=== PATIENT | female | born 1975 | race Caucasian/White ===

== ENCOUNTER → 2019-12-25 12:41 | Outpatient (BNVA) | payer SELFPAY | PROVIDERS: Family Provider Nurse Practitioner; PCP Nurse Practitioner; Visit Provider Family Medicine | DX: R50.9 Fever, unspecified (principal); R52 Pain, unspecified; R51 Headache; A08.4 Viral intestinal infection, unspecified; R10.31 Right lower quadrant pain; H65.01 Acute serous otitis media, right ear | CPT/HCPCS: 87804 ==

== ENCOUNTER 2020-01-16 05:56 | Day surgery (SDC) | payer SELFPAY ==
[2020-01-15 12:18] VITALS: BMI 49.8
[2020-01-16 06:14] VITALS: BP 128/85; RESP 20; TEMP 35.9; O2SAT 99
[2020-01-16] MEDS: sodium chloride 0.9% 1,000 ML 30 ML (06:19)
--- NOTE | 2020-01-16 06:31 | W.PM.OPSFHP ---
Same Day Surgery H&P Indication for Procedure/HPI DATE OF PROCEDURE: January 16, 2020 CHIEF COMPLAINT/INDICATIONFOR SURGICAL PROCEDURE: Heartburn PREOP DIAGNOSIS: GERD PLANNED PROCEDRUE: Operation Date: 01/16/20 07:00 Proposed Procedures p EGD(Not Applicable) - Silverio Irene MD This is a pleasant 44 years old female patient morbidly obese with multiple medical comorbidities including GERD patient was presented to my office to discuss obesity management options and because of her GERD symptoms and potential planning for bariatric surgery down the road I did academic counselor the patient for diagnostic EGD. Informed consent per chart ROS All systems have been reviewed negative except as for the above and the associated medical comorbidities listed per problem list which includes an anxiety, depression and morbid obesity Medications/Allergies* Home Medications Medication Instructions Recorded Confirmed Type cetirizine 10 mg tablet 10 mg PO QDAY 12/11/19 01/15/20 History clonazepam 0.125 mg disintegrating 0.125 mg PO ONCE 12/11/19 01/15/20 History tablet estradiol 1 mg tablet 1 mg PO QDAY 12/11/19 01/15/20 History venlafaxine 75 mg capsule,extended 225 mg PO QAM cap 12/11/19 01/15/20 History release 24 hr Allergies/Adverse Reactions Allergy/AdvReac Type Severity Reaction Status Date / Time penicillin G Allergy Severe Unknown Verified 01/16/20 06:33 Pertinent History/Comorbid Conditions* Medical History (Updated 12/14/19 @ 09:52 by Silverio Irene MD) Anxiety Chronic pain GERD (gastroesophageal reflux disease) Obesity Surgical History (Updated 12/14/19 @ 09:52 by Silverio Irene MD) History of 3 sections 1993,1999,2002 History of dilation and curettage (~2012) History of foot surgery BILATERAL- PLANTAR FASCITIS RELEASE History of hysterectomy (~2018) History of laparoscopic cholecystectomy (~2014) History of tubal ligation (~2002) Family History (Updated 12/13/19 @ 13:17 by Cheyanne Baxter RN) Diabetes Father Mother Heart disease Father Hypertension Father Thyroid condition Mother Obesity Mother Grandmother Denies family history of Anesthesia complication Bleeding disorder Social History Smoking and tobacco status: current every day smoker cigarettes Packs smoked per day: 1 Years cigarettes smoked: 25 Quit status (tobacco): has tried quititng Second hand smoke exposure: Yes Alcohol intake: never Desire information about substance/drug rehabilitation?: No Adopted: No Caregiver/support person: Yes Lives independently: Yes Household members: significant other Housing: House Marital status: Life Partner Number of children: 3 Highest education level completed: High School Graduate service: No Current occupational status: employed Current occupation: [employer] Current occupational exposures/hazards: No Pets and animals: No History of recent travel: No Leisure activites: volunteer work Sexually active: Yes Current gender identity: Female Flakita/Zoroastrian: None Special flakita needs: No Agree to transfusion: No Financial difficulty paying for basics: Decline to Answer Pertinent Exam Findings alert, oriented x 3, clear to auscultation bilaterally and procedure specific exam findings (Abdominal examination morbidly obese nontender nondistended soft no guarding or rigidity) Recommendations Surgery/Procedure today (Diagnostic EGD) Coding Level of Care Code Acute [facility] for Camille Ibarra
--- NOTE | 2020-01-16 06:48 | P.ANESASSM_ITS ---
Pre-Anesthetic Assessment Pre-Anesthetic Assessment: Height/Weight: Height 1.55 m Weight 119.748 kg Temp Resp BP Pulse Ox 96.6 F L 20 H 128/85 99 01/16/20 06:14 01/16/20 06:14 01/16/20 06:14 01/16/20 06:14 Preop Diagnosis: GERD Proposed Procedure: Operation Date: 01/16/20 07:00 Proposed Procedures p EGD(Not Applicable) - Silverio Irene MD Was Beta Sal taken within 24 hours: N/A Last intake: Intake Last Liquid Date 01/15/20 Last Liquid Time 23:30 Last Intake: 23:30 Social: Social History: Tobacco and No alcohol Packs per day: 1 Pack years: 20 Exam: Pre-Anes Outpt Exam: alert, oriented x 3, clear to auscultation bilaterally and regular rate & rhythm Airway: Submandibular: WNL Cervical ROM: WNL MP: 1 Pulmonary: Pulmonary: None reported CV/HEM: CV/HEM: None reported : : None reported Hepatic: Hepatic: None reported GI: GI: GERD Metabolic: Metabolic: Morbid obesity Musc/skel: Musc/skel: OA/DJD Neuropsych: Neuropsych: Anxiety Anesthetic Plan: ASA status: 2 Anesthesia: Anesthesia Evaluation and MAC Risk of > 500 ml blood loss (7ml/kg in children): No PFSH Anesthesia PFSH: Social History (Updated 12/25/19 @ 12:37 by Angelica Davis LPN) Smoking and tobacco status: current every day smoker cigarettes Packs smoked per day: 1 Years cigarettes smoked: 25 Quit status (tobacco): has tried quititng Second hand smoke exposure: Yes Alcohol intake: never Desire information about substance/drug rehabilitation?: No Adopted: No Caregiver/support person: Yes Lives independently: Yes Household members: significant other Housing: House Marital status: Life Partner Number of children: 3 Highest education level completed: High School Graduate service: No Current occupational status: employed Current occupation: [employer] Current occupational exposures/hazards: No Pets and animals: No History of recent travel: No Leisure activites: volunteer work Sexually active: Yes Current gender identity: Female Flakita/Sabianism: None Special flakita needs: No Agree to transfusion: No Financial difficulty paying for basics: Decline to Answer Data Anesthesia Cardiac Studies: No Data to Display
[2020-01-16 07:15] VITALS: BP 107/69; PULSE 100; RESP 94; TEMP 36.1; O2SAT 99
--- NOTE | 2020-01-16 07:15 | ANE.PACU2 ---
 Inpatient post-anesthesia follow up: Airway intact: Yes Vital signs: Temperature 96.6 F Pulse Rate Respiratory Rate 20 Blood Pressure 128/85 Pulse Oximetry 99 Oxygen Delivery Me thod Room Air Oxygen Flow Rate Fraction of Inspir ed Oxygen Hydration adequate: Yes Nausea and vomiting: No Pain level: 1 Mental status: Baseline
[2020-01-16 07:30] VITALS: BP 92/71; PULSE 82; RESP 18; O2SAT 96
== END 2020-01-16 07:40 | disposition home or self-care (01) ==
PROVIDERS: Family Provider Nurse Practitioner; PCP Nurse Practitioner; Visit Provider Surgery
PROC: 0DJ08ZZ Inspection of Upper Intestinal Tract, Via Natural or Artificial Opening Endoscopic (ICD-10-PCS; CPT 43235; principal; 2020-01-16 07:00)
DX: K21.9 Gastro-esophageal reflux disease without esophagitis (principal); E66.01 Morbid (severe) obesity due to excess calories; Z68.42 Body mass index [BMI] 45.0-49.9, adult; F17.210 Nicotine dependence, cigarettes, uncomplicated; M19.90 Unspecified osteoarthritis, unspecified site; K29.70 Gastritis, unspecified, without bleeding
CPT/HCPCS: 12345; 43239; 87077; J2704; J7030

== ENCOUNTER 2020-02-07 20:00 | Outpatient (CLI) | payer SELFPAY | END 2020-02-07 20:01 | disposition home or self-care (01) | LOC: SLEEP 02-08 10:07 | PROVIDERS: Family Provider Nurse Practitioner; PCP Nurse Practitioner; Visit Provider Surgery | DX: G47.33 Obstructive sleep apnea (adult) (pediatric) (principal) | CPT/HCPCS: 95810 ==

== ENCOUNTER 2020-02-20 10:18 | Emergency (ER) | payer SELFPAY ==
[2020-02-20 10:24] VITALS: BP 167/104; PULSE 117; RESP 16; TEMP 36.9; O2SAT 96; BMI 51.0
--- NOTE | 2020-02-20 10:41 | XR_ITS ---
WS: [id number] PORTABLE CHEST HISTORY: cough COMPARISON: 04/24/2019 Perihilar pulmonary vascular congestion and interstitial thickening. Greatest on the RIGHT. No pleura l effusion or pneumothorax. Cardiac size: Normal. Mediastinum/Aorta: Normal mediastinum. No osseous abnormality seen. XR/XR chest 1V portable [id number] IMPRESSION: Pulmonary venous congestion, greatest on the RIGHT. A superimposed pneumonitis on the RIGHT should be considered.
--- NOTE | 2020-02-20 10:43 | ED_ITS ---
Documented by User: LARISA Ferris 02/23/20 17:28 HPI - URI/Sore Throat General: Chief Complaint: Upper Respiratory Infection Stated Complaint: MULTIPLE COMPLAINTS Time Seen by Provider: 02/20/20 10:24 History of Present Illness: HPI Narrative: Patient is a 45-year-old female who comes to the ED with upper respiratory infection. Patient says that symptoms started on Tuesday, February 16. She has had nasal congestion, headache, cough, body aches and ear pain. She has also had on or off again fever for the past couple days. She is also starting develop a mild sore throat. She denies any recent travel or any known contact with COVID-19 positive patients. Associated symptoms: Reports fever(s), headache(s) and nasal congestion; Deny abdominal pain, chills, chest pain, diarrhea, nausea or vomiting Review of Systems Const: Reports: fever; Denies: chills or fatigue Eyes: Denies: change in vision or eye discomfort ENMT: Reports: throat pain, nasal discharge and nasal congestion; Denies: painful swallowing Card: Denies: chest pain, palpitations, edema, swelling of feet/ankles, shortness of breath on exertion or shortness of breath when lying down Resp: Reports: non-productive cough; Denies: shortness of breath or productive cough GI: Denies: abdominal pain, nausea, vomiting, diarrhea, constipation or blood in stool : Denies: flank pain, painful urination or blood in urine Musc: Denies: neck pain, back pain or extremity swelling Skin/Breast: Denies: rash or new lesion Neuro: Reports: headache; Denies: numbness in extremities or weakness in extremities [facility] ED PFSH: Medical History Anxiety Bereavement Sudden loss of sister Chronic pain Chronic post-traumatic stress disorder Generalized anxiety disorder GERD (gastroesophageal reflux disease) Major depressive disorder, recurrent, moderate Nicotine dependence, cigarettes, uncomplicated Obesity Panic disorder without agoraphobia Surgical History History of 3 sections 1993,1999,2002 History of dilation and curettage (~2012) History of foot surgery BILATERAL- PLANTAR FASCITIS RELEASE History of hysterectomy (~2018) History of laparoscopic cholecystectomy (~2014) History of tubal ligation (~2002) Family History Father Hypertension Heart disease Diabetes Mother Thyroid condition Diabetes Obesity Grandmother Obesity Denies family history of Anesthesia complication Bleeding disorder Social History Smoking and tobacco status: current every day smoker cigarettes Packs smoked per day: 1 Years cigarettes smoked: 25 Quit status (tobacco): has tried quititng Second hand smoke exposure: Yes Alcohol intake: never Desire information about substance/drug rehabilitation?: No Adopted: No Caregiver/support person: Yes Lives independently: Yes Household members: significant other Housing: House Marital status: Life Partner Number of children: 3 Highest education level completed: High School Graduate service: No Current occupational status: employed Current occupation: [employer] independent living Current occupational exposures/hazards: No Pets and animals: No History of recent travel: No Leisure activites: volunteer work Sexually active: Yes Current gender identity: Female Flakita/Pentecostalism: None Special flakita needs: No Agree to transfusion: No Financial difficulty paying for basics: Decline to Answer Physical Exam Const: COMMON NORMALS: oriented x3 HENMT: COMMON NORMALS: normocephalic HEAD & SCALP: normocephalic TYMPANIC MEMBRANE: TM abnormal TM laterality: bilateral bulging, erythematous (mild erythema) and with fluid behind the TM; not perforated MOUTH: oral and palatal mucosa normal THROAT: uvula midline and posterior oropharynx abnormal cobblestoning Neck/C-Spine: COMMON NORMALS: supple GENERAL: Yes normal visual inspection Lymph: LYMPHATIC: no lymphadenopathy noted Resp: COMMON NORMALS: normal respiratory effort, no retractions, no use of accessory muscles and clear to auscultation bilaterally EFFORT & INSPECTION: Yes able to speak in complete sentences and No labored AUSCULTATION: clear to auscultation bilaterally Cardio: COMMON NORMALS: regular rate, regular rhythm, S1 normal heart sound, S2 normal heart sound, no gallops, no clicks, no murmurs and peripheral pulses 2+ throughout RATE: regular rate RHYTHM: regular rhythm HEART SOUNDS: S1 normal and S2 normal PERIPHERAL PULSES: pulses 2+ throughout GI: COMMON NORMALS: normal to inspection, nondistended, normoactive bowel sounds, soft to palpation, non-tender and no masses PALPATION: Yes soft : COMMON NORMALS: Yes no CVA tenderness BLADDER/KIDNEY EXAM: Yes no CVA tenderness Back/Pelvis: COMMON NORMALS: no CVA tenderness Extremity: COMMON NORMALS: normal to inspection Neuro: COMMON NORMALS: oriented x3 and moves all extremities Skin: COMMON NORMALS: no rashes or lesions noted GENERAL SKIN EXAM: no rashes or lesions noted and dry skin Course Vital Signs: Vital signs: Vital Signs Temperature 98.8 F 02/20/20 12:30 Pulse Rate 106 H 02/20/20 12:30 Respiratory Rate 21 H 02/20/20 12:30 Blood Pressure 128/102 02/20/20 12:30 Pulse Oximetry 96 02/20/20 12:30 MDM - URI/Sore Throat MDM Narrative: Medical decision making narrative: Patient is a 45-year-old female comes into the ED with congestion, cough sore throat and ear pain. Chest x-ray was positive for right lower lobe pneumonia. Patient was put on azithromycin and Cefpodoxime to treat pneumonia. Patient told to take full course of antibiotics. She will follow-up with her PCP in 5 to 7 days. Patient understood and agreed with plan. Lab Data: Attestation: I reviewed the patient's lab results. Labs: Lab Results 02/20/20 02/20/20 02/20/20 Range/Units 11:04 11:17 11:17 WBC 8.1 (4.0-10.0) 10^3/ uL RBC 4.23 (4.1-5.3) 10^6/u L Hgb 11.8 (11.5-15.3) g/dL Hct 37.4 (37.0-47.0) % MCV 88.4 (81-99) fL MCH 27.9 L (28.0-34.0) pg MCHC 31.6 (30.0-36.0) g/dL RDW 14.1 (12.1-15.1) % Plt Count 327 (130-400) 10^3/c mm MPV 9.2 (7.4-10.4) fL Neut % (Auto) 63.5 % Lymph % (Auto) 24.3 % [place] % (Auto) 9.1 % Eos % (Auto) 2.7 % Baso % (Auto) 0.2 % Neut # (Auto) 5.2 (1.8-7.7) 10^3/u L Lymph # (Auto) 2.0 (0.8-4.8) 10^3/u L [place] # (Auto) 0.7 (0.2-0.9) 10^3/u L Eos # (Auto) 0.2 (0.0-0.8) 10^3/u L Baso # (Auto) 0.0 (0.0-0.1) 10^3/u L Nucleated RBC % (a uto) 0 % Nucleated RBCs # 0.0 /100WBC Sodium 136 (136-145) mmol/L Potassium 4.2 (3.5-5.1) mmol/L Chloride 102 (98-107) mmol/L Carbon Dioxide 25 (22-29) mmol/L Anion Gap 13.2 (5-19) BUN 11 (6-20) mg/dL Creatinine 0.6 (0.5-0.9) mg/dL GFR Calculation 109.1 (90-130) mL/min Glucose 119 H (65-115) mg/dL Calculated Osmolal ity 279 L (285-295) mOsm/k g Calcium 9.8 (8.5-10.5) mg/dL Total Bilirubin 0.2 (0.15-1.2) mg/dL AST 17 (0-32) U/L ALT 19 (0-33) U/L Alkaline Phosphata se 82 (35-105) IU/L Total Protein 7.1 (6.6-8.7) g/dL Albumin 3.7 (3.5-5.2) g/dL Globulin 3.4 (1.3-4.6) g/dL HCG, Qual (Negative) Influenza Type A A g Negative (Negative) Influenza Type B A g Negative (Negative) 02/20/20 Range/Units 11:17 WBC (4.0-10.0) 10^3/ uL RBC (4.1-5.3) 10^6/u L Hgb (11.5-15.3) g/dL Hct (37.0-47.0) % MCV (81-99) fL MCH (28.0-34.0) pg MCHC (30.0-36.0) g/dL RDW (12.1-15.1) % Plt Count (130-400) 10^3/c mm MPV (7.4-10.4) fL Neut % (Auto) % Lymph % (Auto) % [place] % (Auto) % Eos % (Auto) % Baso % (Auto) % Neut # (Auto) (1.8-7.7) 10^3/u L Lymph # (Auto) (0.8-4.8) 10^3/u L [place] # (Auto) (0.2-0.9) 10^3/u L Eos # (Auto) (0.0-0.8) 10^3/u L Baso # (Auto) (0.0-0.1) 10^3/u L Nucleated RBC % (a uto) % Nucleated RBCs # /100WBC Sodium (136-145) mmol/L Potassium (3.5-5.1) mmol/L Chloride (98-107) mmol/L Carbon Dioxide (22-29) mmol/L Anion Gap (5-19) BUN (6-20) mg/dL Creatinine (0.5-0.9) mg/dL GFR Calculation (90-130) mL/min Glucose (65-115) mg/dL Calculated Osmolal ity (285-295) mOsm/k g Calcium (8.5-10.5) mg/dL Total Bilirubin (0.15-1.2) mg/dL AST (0-32) U/L ALT (0-33) U/L Alkaline Phosphata se (35-105) IU/L Total Protein (6.6-8.7) g/dL Albumin (3.5-5.2) g/dL Globulin (1.3-4.6) g/dL HCG, Qual Negative (Negative) Influenza Type A A g (Negative) Influenza Type B A g (Negative) Imaging Data^: CXR: Attestation: I personally reviewed and interpreted this imaging study as follows: Radiologist's impression: XRay Report Signed Patient: Judy Dietrich Unit #: [id number] : [id number] Age/Sex: 45 / F ADM Date: 02/20/20 Loc: ER Room/Bed: Attending Dr: Ordering Provider/Ordering MD: Cricket Bruce Date of Service: 02/20/20 Procedure(s): XR chest 1V portable [id number] Accession Number(s): [id number] Report Number: [id number] WS: [id number] PORTABLE CHEST HISTORY: cough COMPARISON: 04/24/2019 Perihilar pulmonary vascular congestion and interstitial thickening. Greatest on the RIGHT. No pleural effusion or pneumothorax. Cardiac size: Normal. Mediastinum/Aorta: Normal mediastinum. No osseous abnormality seen. XR/XR chest 1V portable [id number] IMPRESSION: Pulmonary venous congestion, greatest on the RIGHT. A superimposed pneumonitis on the RIGHT should be considered. Dictated By: Shital Shelby DO Signed By: Shital Shelby DO Signed Date/Time: 02/20/201116 DD/ 111 Discharge Plan Discharge Patient Disposition: Home, Self-Care Clinical Impression: Pneumonia Qualifiers: Pneumonia type: due to unspecified organism Laterality: right Lung location: lower lobe of lung Qualified Code(s): J18.9 - Pneumonia, unspecified organism Otitis media Qualifiers: Otitis media type: suppurative Chronicity: acute Laterality: bilateral Recurrence: non-recurrent Spontaneous tympanic membrane rupture: without spontaneous rupture Qualified Code(s): H66.003 - Acute suppurative otitis media without spontaneous rupture of ear drum, bilateral Condition: Stable Prescriptions: New cefpodoxime 200 mg tablet 200 mg PO BID 7 Days Qty: 14 RF: 0 No Action venlafaxine [Effexor XR] 75 mg capsule,extended release 24hr 75 mg PO QAM Qty: 30 RF: 4 venlafaxine [Effexor XR] 150 mg capsule,extended release 24hr 150 mg PO QAM Qty: 30 RF: 4 cetirizine [Zyrtec] 10 mg tablet 10 mg PO DAILY RF: 0 estradiol 1 mg tablet 1 mg PO DAILY RF: 0 clonazepam 0.125 mg tablet,disintegrating 0.125 mg PO BID PRN (Reason: Anxiety) RF: 0 Vicks DayQuil Cold-Flu Relief 5-10-325 mg Capsule 2 cap PO QAM RF: 0 Vicks NyQuil Cold/Flu Liquicap 6.25-15-325 mg Capsule 2 cap PO BEDTIME RF: 0 Protonix 40 mg tablet,delayed release (DR/EC) 40 mg PO DAILY RF: 0 Discharge Orders: Discharge Order (Routine); Ordered 02/20/20 Ordered By: Cricket Bruce Referrals: Mrailuz Pillai FNP [Primary Care Provider] - Discharge Diet: Regular Discharge Activity: Increase activity as tolerated Patient Instructions: Otitis Media - Adult, Pneumonia (ED) Activity Restrictions/Additional Instructions: Follow-up with your PCP in 5 to 7 days for reevaluation. Take full course of antibiotics as prescribed. Take Tylenol for fevers. Drink plenty of fluids and stay hydrated. If you are having any worsening symptoms please return to the ED for reevaluation. Discharge Date/Time: 02/20/20 12:33 Coding Level of Care Code ED Police Communications Dispatcher for Chg Fwd Exam Comprehensive Documented by User: Danny Delgado DO 02/24/20 08:23 HPI - URI/Sore Throat General: Chief Complaint: Upper Respiratory Infection Stated Complaint: MULTIPLE COMPLAINTS Time Seen by Provider: 02/20/20 10:24 PFSH ED PFSH: Medical History Anxiety Bereavement Sudden loss of sister Chronic pain Chronic post-traumatic stress disorder Generalized anxiety disorder GERD (gastroesophageal reflux disease) Major depressive disorder, recurrent, moderate Nicotine dependence, cigarettes, uncomplicated Obesity Panic disorder without agoraphobia Surgical History History of 3 sections 1993,1999,2002 History of dilation and curettage (~2012) History of foot surgery BILATERAL- PLANTAR FASCITIS RELEASE History of hysterectomy (~2018) History of laparoscopic cholecystectomy (~2014) History of tubal ligation (~2002) Family History Father Hypertension Heart disease Diabetes Mother Thyroid condition Diabetes Obesity Grandmother Obesity Denies family history of Anesthesia complication Bleeding disorder Social History Smoking and tobacco status: current every day smoker cigarettes Packs smoked per day: 1 Years cigarettes smoked: 25 Quit status (tobacco): has tried quititng Second hand smoke exposure: Yes Alcohol intake: never Desire information about substance/drug rehabilitation?: No Adopted: No Caregiver/support person: Yes Lives independently: Yes Household members: significant other Housing: House Marital status: Life Partner Number of children: 3 Highest education level completed: High School Graduate service: No Current occupational status: employed Current occupation: [employer] independent living Current occupational exposures/hazards: No Pets and animals: No History of recent travel: No Leisure activites: volunteer work Sexually active: Yes Current gender identity: Female Flakita/Pentecostalism: None Special flakita needs: No Agree to transfusion: No Financial difficulty paying for basics: Decline to Answer Course Vital Signs: Vital signs: Vital Signs Temperature 98.8 F 02/20/20 12:30 Pulse Rate 106 H 02/20/20 12:30 Respiratory Rate 21 H 02/20/20 12:30 Blood Pressure 128/102 02/20/20 12:30 Pulse Oximetry 96 02/20/20 12:30 MDM - URI/Sore Throat MDM Narrative: Medical decision making narrative: Reviewed patient with PA. Agree with assessment and plan Lab Data: Labs: Lab Results 02/20/20 02/20/20 02/20/20 Range/Units 11:04 11:17 11:17 WBC 8.1 (4.0-10.0) 10^3/ uL RBC 4.23 (4.1-5.3) 10^6/u L Hgb 11.8 (11.5-15.3) g/dL Hct 37.4 (37.0-47.0) % MCV 88.4 (81-99) fL MCH 27.9 L (28.0-34.0) pg MCHC 31.6 (30.0-36.0) g/dL RDW 14.1 (12.1-15.1) % Plt Count 327 (130-400) 10^3/c mm MPV 9.2 (7.4-10.4) fL Neut % (Auto) 63.5 % Lymph % (Auto) 24.3 % [place] % (Auto) 9.1 % Eos % (Auto) 2.7 % Baso % (Auto) 0.2 % Neut # (Auto) 5.2 (1.8-7.7) 10^3/u L Lymph # (Auto) 2.0 (0.8-4.8) 10^3/u L [place] # (Auto) 0.7 (0.2-0.9) 10^3/u L Eos # (Auto) 0.2 (0.0-0.8) 10^3/u L Baso # (Auto) 0.0 (0.0-0.1) 10^3/u L Nucleated RBC % (a uto) 0 % Nucleated RBCs # 0.0 /100WBC Sodium 136 (136-145) mmol/L Potassium 4.2 (3.5-5.1) mmol/L Chloride 102 (98-107) mmol/L Carbon Dioxide 25 (22-29) mmol/L Anion Gap 13.2 (5-19) BUN 11 (6-20) mg/dL Creatinine 0.6 (0.5-0.9) mg/dL GFR Calculation 109.1 (90-130) mL/min Glucose 119 H (65-115) mg/dL Calculated Osmolal ity 279 L (285-295) mOsm/k g Calcium 9.8 (8.5-10.5) mg/dL Total Bilirubin 0.2 (0.15-1.2) mg/dL AST 17 (0-32) U/L ALT 19 (0-33) U/L Alkaline Phosphata se 82 (35-105) IU/L Total Protein 7.1 (6.6-8.7) g/dL Albumin 3.7 (3.5-5.2) g/dL Globulin 3.4 (1.3-4.6) g/dL HCG, Qual (Negative) Influenza Type A A g Negative (Negative) Influenza Type B A g Negative (Negative) 02/20/20 Range/Units 11:17 WBC (4.0-10.0) 10^3/ uL RBC (4.1-5.3) 10^6/u L Hgb (11.5-15.3) g/dL Hct (37.0-47.0) % MCV (81-99) fL MCH (28.0-34.0) pg MCHC (30.0-36.0) g/dL RDW (12.1-15.1) % Plt Count (130-400) 10^3/c mm MPV (7.4-10.4) fL Neut % (Auto) % Lymph % (Auto) % [place] % (Auto) % Eos % (Auto) % Baso % (Auto) % Neut # (Auto) (1.8-7.7) 10^3/u L Lymph # (Auto) (0.8-4.8) 10^3/u L [place] # (Auto) (0.2-0.9) 10^3/u L Eos # (Auto) (0.0-0.8) 10^3/u L Baso # (Auto) (0.0-0.1) 10^3/u L Nucleated RBC % (a uto) % Nucleated RBCs # /100WBC Sodium (136-145) mmol/L Potassium (3.5-5.1) mmol/L Chloride (98-107) mmol/L Carbon Dioxide (22-29) mmol/L Anion Gap (5-19) BUN (6-20) mg/dL Creatinine (0.5-0.9) mg/dL GFR Calculation (90-130) mL/min Glucose (65-115) mg/dL Calculated Osmolal ity (285-295) mOsm/k g Calcium (8.5-10.5) mg/dL Total Bilirubin (0.15-1.2) mg/dL AST (0-32) U/L ALT (0-33) U/L Alkaline Phosphata se (35-105) IU/L Total Protein (6.6-8.7) g/dL Albumin (3.5-5.2) g/dL Globulin (1.3-4.6) g/dL HCG, Qual Negative (Negative) Influenza Type A A g (Negative) Influenza Type B A g (Negative) Discharge Plan Discharge Patient Disposition: Home, Self-Care Clinical Impression: Pneumonia Qualifiers: Pneumonia type: due to unspecified organism Laterality: right Lung location: lower lobe of lung Qualified Code(s): J18.9 - Pneumonia, unspecified organism Otitis media Qualifiers: Otitis media type: suppurative Chronicity: acute Laterality: bilateral Recurrence: non-recurrent Spontaneous tympanic membrane rupture: without spontaneous rupture Qualified Code(s): H66.003 - Acute suppurative otitis media without spontaneous rupture of ear drum, bilateral Condition: Stable Prescriptions: New cefpodoxime 200 mg tablet 200 mg PO BID 7 Days Qty: 14 RF: 0 No Action venlafaxine [Effexor XR] 75 mg capsule,extended release 24hr 75 mg PO QAM Qty: 30 RF: 4 venlafaxine [Effexor XR] 150 mg capsule,extended release 24hr 150 mg PO QAM Qty: 30 RF: 4 cetirizine [Zyrtec] 10 mg tablet 10 mg PO DAILY RF: 0 estradiol 1 mg tablet 1 mg PO DAILY RF: 0 clonazepam 0.125 mg tablet,disintegrating 0.125 mg PO BID PRN (Reason: Anxiety) RF: 0 Vicks DayQuil Cold-Flu Relief 5-10-325 mg Capsule 2 cap PO QAM RF: 0 Vicks NyQuil Cold/Flu Liquicap 6.25-15-325 mg Capsule 2 cap PO BEDTIME RF: 0 Protonix 40 mg tablet,delayed release (DR/EC) 40 mg PO DAILY RF: 0 Discharge Orders: Discharge Order (Routine); Ordered 02/20/20 Ordered By: Cricket Bruce Referrals: Mariluz Pillai FNP [Primary Care Provider] - Discharge Diet: Regular Discharge Activity: Increase activity as tolerated Patient Instructions: Otitis Media - Adult, Pneumonia (ED) Activity Restrictions/Additional Instructions: Follow-up with your PCP in 5 to 7 days for reevaluation. Take full course of antibiotics as prescribed. Take Tylenol for fevers. Drink plenty of fluids and stay hydrated. If you are having any worsening symptoms please return to the ED for reevaluation. Discharge Date/Time: 02/20/20 12:33 Coding Level of Care Code ED Police Communications Dispatcher for Camille Fwd Exam Comprehensive
[2020-02-20 11:28] LABS: Basophils % 0.2 %; Eosinophils # 0.2 10^3/uL (0.0-0.8); Eosinophils % 2.7 %; Hematocrit 37.4 % (37.0-47.0); Hemoglobin 11.8 g/dL (11.5-15.3); Lymphocytes % 24.3 %; Mean Corpuscular HGB Conc 31.6 g/dL (30.0-36.0); Mean Corpuscular Hemoglobin 27.9 pg (28.0-34.0); Mean Corpuscular Volume 88.4 fL (81-99); Mean Platelet Volume 9.2 fL (7.4-10.4); Monocytes # 0.7 10^3/uL (0.2-0.9); Monocytes % 9.1 %; Neutrophils # 5.2 10^3/uL (1.8-7.7); Neutrophils % 63.5 %; Nucleated Red Blood Cells % 0 %; Platelet Count 327 10^3/cmm (130-400); Red Blood Count 4.23 10^6/uL (4.1-5.3); Red Cell Distribution Width 14.1 % (12.1-15.1); White Blood Count 8.1 10^3/uL (4.0-10.0)
[2020-02-20 11:38] LABS: Influenza A by IFA Negative (Negative); Influenza B by IFA Negative (Negative)
[2020-02-20 11:42] LABS: HCG, Serum Qual Negative (Negative)
[2020-02-20 11:53] LABS: Alanine Aminotransferase 19 U/L (0-33); Albumin Level 3.7 g/dL (3.5-5.2); Alkaline Phosphatase 82 IU/L (35-105); Anion Gap 13.2 (5-19); Aspartate Amino Transferase 17 U/L (0-32); Blood Urea Nitrogen 11 mg/dL (6-20); Calcium 9.8 mg/dL (8.5-10.5); Carbon Dioxide 25 mmol/L (22-29); Chloride 102 mmol/L (98-107); Globulin 3.4 g/dL (1.3-4.6); Glomerular Filtration Rate 109.1 mL/min (90-130); Glucose 119 mg/dL (65-115); Osmolality Calculated 279 mOsm/kg (285-295); Potassium 4.2 mmol/L (3.5-5.1); Sodium 136 mmol/L (136-145); Total Bilirubin 0.2 mg/dL (0.15-1.2); Total Protein 7.1 g/dL (6.6-8.7)
[2020-02-20] MEDS: azithromycin 250 mg Tablet 500 MG PO (12:10)
[2020-02-20] MEDS: acetaminophen 500 mg Tablet PO (12:11)
[2020-02-20 12:30] VITALS: BP 128/102; PULSE 106; RESP 21; TEMP 37.1; O2SAT 96
== END 2020-02-20 12:33 | disposition home or self-care (01) ==
PROVIDERS: Emergency Provider Physician Assistant; Family Provider Nurse Practitioner; PCP Nurse Practitioner
DX: J18.9 Pneumonia, unspecified organism (principal); H66.003 Acute suppurative otitis media without spontaneous rupture of ear drum, bilateral; F41.0 Panic disorder [episodic paroxysmal anxiety]; F43.12 Post-traumatic stress disorder, chronic; F41.1 Generalized anxiety disorder; F33.1 Major depressive disorder, recurrent, moderate; F17.210 Nicotine dependence, cigarettes, uncomplicated; K21.9 Gastro-esophageal reflux disease without esophagitis
CPT/HCPCS: 12345; 71045; 80053; 84703; 85025; 87804; 99282; 99283; Q0144

== ENCOUNTER 2020-05-21 20:00 | Outpatient (CLI) | payer MEDICAID, SELFPAY | END 2020-05-21 20:01 | disposition home or self-care (01) | LOC: SLEEP 05-22 09:19 | PROVIDERS: Family Provider Nurse Practitioner; PCP Nurse Practitioner; Visit Provider Family Medicine | DX: G47.33 Obstructive sleep apnea (adult) (pediatric) (principal) | CPT/HCPCS: 95811 ==

== ENCOUNTER → 2020-07-14 09:00 | Outpatient (BNVA) | payer MEDICAID, SELFPAY | PROVIDERS: Family Provider Nurse Practitioner; PCP Family Medicine; Visit Provider Nurse Practitioner Psychiatric/Mental Health | DX: F33.1 Major depressive disorder, recurrent, moderate (principal); F41.1 Generalized anxiety disorder; Z63.4 Disappearance and death of family member; F43.12 Post-traumatic stress disorder, chronic; F41.0 Panic disorder [episodic paroxysmal anxiety]; F17.210 Nicotine dependence, cigarettes, uncomplicated | CPT/HCPCS: 99213 ==

== ENCOUNTER 2020-08-13 15:23 | Outpatient (CLI) | payer MEDICAID, SELFPAY ==
--- NOTE | 2020-08-13 15:30 | MM_ITS ---
WS: [id number] BILATERAL DIGITAL SCREENING MAMMOGRAM WITH CAD CLINICAL INFORMATION: screening mammogram HISTORY: Screening mammogram. No current complaints. COMPARISON: None. TECHNIQUE: Bilateral CC and MLO views. FINDINGS: Fatty-replaced breasts bilaterally. No suspicious focal mass, asymmetry, calcifications, or soa integration architect ural distortion. No evidence of malignancy. MM/[place] [id number] IMPRESSION: BI-RADS: 1-Negative FOLLOW UP: 1 Year Follow-up Recommend return to annual screening mammography.
--- NOTE | 2020-08-13 15:53 | XR_ITS ---
WS: [id number] DEXA (DUAL ENERGY X-RAY ABSORPTIOMETRY) Bone mineral density was performed using a [employer] machine. HISTORY: post-menopausal COMPARISON: None available. Lumbar spine BMD (L1-L4): 1.005 g/cm2 T score: -1.5 Z score: -2.6 Total hip BMD: Left: 1.057 g/cm2. T score: 0.4 Z score: -0.2 Right: 1.107 g/cm2. T score: 0.8 Z score: 0.2 10 year probability of a major osteoporotic fracture is 2%. XR/XR DEXA axial skeleton* [id number] IMPRESSION: OSTEOPENIA based upon the WHO classification for females.
== END 2020-08-13 15:24 | disposition home or self-care (01) ==
PROVIDERS: PCP Family Medicine; Visit Provider Family Medicine
DX: Z12.31 Encounter for screening mammogram for malignant neoplasm of breast (principal); Z78.0 Asymptomatic menopausal state; M85.89 Other specified disorders of bone density and structure, multiple sites
CPT/HCPCS: 77067; 77080

== ENCOUNTER → 2020-08-18 13:00 | Outpatient (BNVA) | payer MEDICAID, SELFPAY | PROVIDERS: Visit Provider Nurse Practitioner Psychiatric/Mental Health | DX: F33.1 Major depressive disorder, recurrent, moderate (principal); F17.210 Nicotine dependence, cigarettes, uncomplicated; F41.1 Generalized anxiety disorder; Z63.4 Disappearance and death of family member; F43.12 Post-traumatic stress disorder, chronic; F41.0 Panic disorder [episodic paroxysmal anxiety] | CPT/HCPCS: 99214 ==

== ENCOUNTER → 2020-09-01 16:24 | Outpatient (BNVA) | payer MEDICAID, SELFPAY | PROVIDERS: PCP Family Medicine; Visit Provider Nurse Practitioner | DX: M79.641 Pain in right hand (principal) | CPT/HCPCS: 73130 ==

== ENCOUNTER → 2020-09-22 14:36 | Outpatient (BNVA) | payer MEDICAID, SELFPAY | PROVIDERS: PCP Family Medicine; Visit Provider Nurse Practitioner Family | DX: Z11.59 Encounter for screening for other viral diseases (principal) | CPT/HCPCS: 87635 ==

== ENCOUNTER → 2020-09-29 08:09 | Outpatient (BNVA) | payer MEDICAID, SELFPAY | PROVIDERS: PCP Family Medicine; Visit Provider Nurse Practitioner Psychiatric/Mental Health | DX: F33.1 Major depressive disorder, recurrent, moderate (principal); F41.1 Generalized anxiety disorder; Z63.4 Disappearance and death of family member; F43.12 Post-traumatic stress disorder, chronic; F41.0 Panic disorder [episodic paroxysmal anxiety]; F17.210 Nicotine dependence, cigarettes, uncomplicated | CPT/HCPCS: 99214 ==

== ENCOUNTER → 2020-10-24 07:40 | Outpatient (BNVA) | payer MEDICAID, SELFPAY | PROVIDERS: PCP Family Medicine; Visit Provider Nurse Practitioner Psychiatric/Mental Health | DX: F33.1 Major depressive disorder, recurrent, moderate (principal); F41.1 Generalized anxiety disorder; F17.210 Nicotine dependence, cigarettes, uncomplicated; F43.12 Post-traumatic stress disorder, chronic; Z63.4 Disappearance and death of family member; F41.0 Panic disorder [episodic paroxysmal anxiety] | CPT/HCPCS: 99214 ==

== ENCOUNTER → 2020-11-25 13:28 | Outpatient (BNVA) | payer MEDICAID, SELFPAY | PROVIDERS: PCP Family Medicine; Visit Provider Podiatrist Foot & Ankle Surgery | DX: M79.671 Pain in right foot (principal); M79.672 Pain in left foot; M19.079 Primary osteoarthritis, unspecified ankle and foot; M72.2 Plantar fascial fibromatosis; M21.42 Flat foot [pes planus] (acquired), left foot; M21.41 Flat foot [pes planus] (acquired), right foot; M77.32 Calcaneal spur, left foot; M77.31 Calcaneal spur, right foot | CPT/HCPCS: 73630 ==

== ENCOUNTER 2020-12-03 10:29 | Outpatient (CLI) | payer MEDICAID, SELFPAY ==
--- NOTE | 2020-12-03 10:35 | XR_ITS ---
WS: [id number] RIGHT KNEE: 3 VIEW(S) TECHNIQUE: AP, oblique(s) and lateral. HISTORY: right posterior knee pain COMPARISON: 08/22/2018 No fracture or dislocation. No joint space narrowing or osteophytes. No joint effusion. No soft tissue abnormality. XR/XR knee RT 3V* [id number] IMPRESSION: Normal RIGHT knee.
== END 2020-12-03 10:30 | disposition home or self-care (01) ==
LOC: RADWPI 10:33
PROVIDERS: PCP Family Medicine; Visit Provider Family Medicine
DX: M25.561 Pain in right knee (principal)
CPT/HCPCS: 73562

== ENCOUNTER → 2020-12-05 09:59 | Outpatient (BNVA) | payer MEDICAID, SELFPAY | PROVIDERS: PCP Family Medicine; Visit Provider Nurse Practitioner Psychiatric/Mental Health | DX: F33.1 Major depressive disorder, recurrent, moderate (principal); F41.1 Generalized anxiety disorder; Z63.4 Disappearance and death of family member; F17.210 Nicotine dependence, cigarettes, uncomplicated; F43.12 Post-traumatic stress disorder, chronic; F41.0 Panic disorder [episodic paroxysmal anxiety] | CPT/HCPCS: 99213 ==

== ENCOUNTER 2020-12-05 19:54 | Emergency (ER) | payer MEDICAID, SELFPAY ==
[2020-12-05 20:00] VITALS: BP 135/85; PULSE 105; RESP 18; TEMP 36.6; O2SAT 97; BMI 54.8
--- NOTE | 2020-12-05 20:40 | ED_ITS ---
HPI - Skin/Abscess/Foreign Bdy General: Chief complaint: Skin/Abscess/Foreign Body Stated complaint: suspects cyst behind right knee/wants US Time Seen by Provider: 12/05/20 20:28 History of Present Illness: HPI narrative: Patient is a 45-year-old female comes to the ED with right calf pain. Patient says pain started a couple days ago and she denies any trauma, injury or accident to cause pain. She rates pain an 8 out of 10 and is located just below the back of the knee on the upper portion of the right calf. Denies any erythema or warmth. Denies shortness of breath, chest pain, cough, hemoptysis. Denies any history of blood clots or DVTs. Associated symptoms: Deny chills, fever(s), nausea or vomiting Review of Systems Const: Denies: fever(s), chills or fatigue Eyes: Denies: change in vision or eye discomfort ENMT: Denies: throat pain, odynophagia, nasal discharge or nasal congestion Card: Denies: chest pain, palpitations, edema, swelling of feet/ankles, dyspnea on exertion or orthopnea Resp: Denies: dyspnea, productive cough or non-productive cough GI: Denies: abdominal pain, nausea, vomiting, diarrhea, constipation or hematochezia : Denies: flank pain, dysuria or hematuria Musc: Reports: extremity pain (right calf pain); Denies: neck pain, back pain or extremity swelling Skin/Breast: Denies: rash or new lesions Neuro: Denies: headache(s), numbness in extremities or weakness in extremities PFS ED PFSH: Medical History Anxiety Bereavement Sudden loss of sister Chronic pain Chronic post-traumatic stress disorder Generalized anxiety disorder GERD (gastroesophageal reflux disease) Major depressive disorder, recurrent, moderate Nicotine dependence, cigarettes, uncomplicated Obesity Panic disorder without agoraphobia Surgical History History of 3 sections 1993,1999,2002 History of dilation and curettage (~2012) History of foot surgery BILATERAL- PLANTAR FASCITIS RELEASE History of hysterectomy (~2018) History of laparoscopic cholecystectomy (~2014) History of tubal ligation (~2002) Family History Father Hypertension Heart disease Diabetes Mother Thyroid condition Diabetes Obesity Grandmother Obesity Denies family history of Anesthesia complication Bleeding disorder Social History Smoking and tobacco status: current every day smoker cigarettes Packs smoked per day: 1 Years cigarettes smoked: 25 Quit status (tobacco): has tried quititng Alcohol intake: never Flakita/Mandaeism: None Physical Exam Const: COMMON NORMALS: no acute distress, patient oriented x3 and alert GENERAL APPEARANCE: cooperative and comfortable NUTRITIONAL APPEARANCE: obese HENMT: COMMON NORMALS: normocephalic HEAD & SCALP: normocephalic MOUTH: Normal oral and palatal mucosa present THROAT: posterior oropharynx normal and uvula midline Neck/C-Spine: COMMON NORMALS: supple GENERAL: Yes normal visual inspection Resp: COMMON NORMALS: normal respiratory effort, No retractions, No use of accessory muscles and clear to auscultation bilaterally AUSCULTATION: clear to auscultation bilaterally Cardio: COMMON NORMALS: regular rate, regular rhythm, S1 normal heart sound present, S2 normal heart sound present, No gallops present (Cardio), No clicks present (Cardio), No murmurs present (Cardio) and Peripheral pulses 2+ throughout RATE: regular rate RHYTHM: regular rhythm HEART SOUNDS: S1 normal heart sound present and S2 normal heart sound present PERIPHERAL PULSES: Peripheral pulses 2+ throughout GI: COMMON NORMALS: Normal to inspection, nondistended, normoactive bowel sounds present, Soft to palpation, non-tender and no masses PALPATION: Yes Soft to palpation : COMMON NORMALS: Yes no CVA tenderness BLADDER/KIDNEY EXAM: Yes no CVA tenderness Back/Pelvis: COMMON NORMALS: no CVA tenderness Extremity: GENERAL: Yes normal exam except as noted, Yes calf tenderness (right leg) and No edema Neuro: COMMON NORMALS: patient oriented x3 and moves all extremities SENSORIUM/ORIENTATION: Yes alert Skin: GENERAL SKIN EXAM: dry skin Course Vital Signs: Vital signs: Vital Signs Temperature 97.8 F 12/05/20 20:00 Pulse Rate 96 12/05/20 21:56 Respiratory Rate 18 12/05/20 21:56 Blood Pressure 134/79 12/05/20 21:56 Pulse Oximetry 98 12/05/20 21:56 MDM - Skin/Abscess/Foreign Bdy MDM Narrative: Medical decision making narrative: Patient is a 45-year-old female comes to the ED with right calf tenderness. Denies any injury or trauma, chest pain, shortness of breath or hemoptysis. Exam is remarkable for calf tenderness but no other findings. Ultrasound venous duplex of right lower extremity showed no DVTs or blood clots. Patient diagnosed with muscle strain in the right lower leg. She was discharged and told to follow-up with PCP in 7 to 10 days. Return precautions given. Patient understood agree with plan. Imaging Data^: US Vascular: Attestation: I personally reviewed and interpreted this imaging study as follows: Radiologist's impression: Ultrasound venous duplex right lower extremity. Prelim report showed no DVT or blood clots seen. Discharge Plan Discharge Patient Disposition: Home Clinical Impression: Muscle strain of right lower leg Qualifiers: Encounter type: initial encounter Qualified Code(s): S86.911A - Strain of unspecified muscle(s) and tendon(s) at lower leg level, right leg, initial encounter Condition: Stable Prescriptions: No Action diclofenac sodium [Voltaren] 1 % gel 4 gm TOPICAL QID Qty: 100 RF: 0 Protonix 40 mg tablet,delayed release (DR/EC) 40 mg PO .morning 90 Days Qty: 90 RF: 1 tramadol 50 mg tablet 50 mg PO BID PRN (Reason: pain) Qty: 14 RF: 0 estradiol 1 mg tablet 1 mg PO DAILY 30 Days Qty: 30 RF: 5 hydroxyzine pamoate [Vistaril] 25 mg capsule 25 mg PO BID PRN (Reason: anxiety) Qty: 60 RF: 3 venlafaxine [Effexor XR] 150 mg capsule,extended release 24hr 150 mg PO QAM Qty: 30 RF: 3 diclofenac sodium 50 mg tablet,delayed release (DR/EC) 50 mg PO BID Qty: 28 RF: 0 Discharge Orders: Discharge ED (Routine); Ordered 12/05/20 Ordered By: Cricket Bruce Referrals: Tatyana Bhatia DO [Primary Care Provider] - Discharge Diet: Regular Discharge Activity: Increase activity as tolerated Patient Instructions: Muscle Strain (ED) Activity Restrictions/Additional Instructions: Follow-up with medical provider as directed in 7-10 days. Rest, ice and elevate right lower leg. Stretch leg daily. Take dric-cyg-lezvisl ibuprofen or Tylenol for pain. Return to the ER or your medical provider if condition worsens. Please read and understand discharge instructions. If any questions, please ask. 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
--- NOTE | 2020-12-05 20:41 | USCV_ITS ---
Judy Dietrich Age: 45 Gender: F : 1975 Exam Date: 12/05/2020 21:00 Ordering Phys: Cricket Bruce Technologist: Shiva Winters [place]am [place] [facility] [place] Indication: RT LEG PAIN AND SWELLING HISTORY: Lower extremity swelling. Lower extremity pain. PROCEDURES: Venous duplex imaging was performed in only the right lower extremity. The following venous structures were evaluated: common femoral vein, profunda vein, proximal portion of the greater saphenous vein, superficial femoral vein, and the popliteal vein. In addition, the posterior tibial and peroneal trunk were evaluated. On the right side, the common femoral, superficial femoral, profunda femoral, popliteal, posterior tibial, greater saphenous veins and the peroneal trunk were identified and interrogated in the standard fashion. These veins were found to be easily compressible with spontaneous blood flow. No evidence of insufficiency or thrombus noted. FINDINGS: Normal 2-D Doppler and augmentation and compressibility throughout the lower extremity venous structures. Additional imaging through the proximal calf veins also reveals no thrombus. Limited evaluation of the greater saphenous vein is patent with no thrombus.. The veins were found to be easily compressible with spontaneous blood flow. CONCLUSIONS No evidence of DVT in the above-mentioned identifiable veins. Dr Liliana Enriquez MD [facility] (Electronically Signed) Final Date: 06 December 2020 10:33 S
[2020-12-05] MEDS: HYDROcodone-acetaminophen 7.5-325 mg Tablet 1 TAB PO (21:14)
[2020-12-05 21:56] VITALS: BP 134/79; PULSE 96; RESP 18; O2SAT 98
== END 2020-12-05 21:57 | disposition home or self-care (01) ==
PROVIDERS: Emergency Provider Physician Assistant; PCP Family Medicine
DX: S86.911A Strain of unspecified muscle(s) and tendon(s) at lower leg level, right leg, initial encounter (principal); F17.210 Nicotine dependence, cigarettes, uncomplicated; X58.XXXA Exposure to other specified factors, initial encounter
CPT/HCPCS: 12345; 93971; 99281; 99283

== ENCOUNTER → 2021-01-09 08:08 | Outpatient (BNVA) | payer MEDICAID, SELFPAY | PROVIDERS: PCP Family Medicine; Visit Provider Nurse Practitioner Psychiatric/Mental Health | DX: F33.1 Major depressive disorder, recurrent, moderate (principal); F41.1 Generalized anxiety disorder; Z63.4 Disappearance and death of family member; F43.12 Post-traumatic stress disorder, chronic; F41.0 Panic disorder [episodic paroxysmal anxiety]; F17.210 Nicotine dependence, cigarettes, uncomplicated | CPT/HCPCS: 99213 ==

== ENCOUNTER → 2021-01-14 08:41 | Outpatient (BNVA) | payer MEDICAID, SELFPAY | PROVIDERS: PCP Family Medicine; Visit Provider Counselor Professional | DX: F33.1 Major depressive disorder, recurrent, moderate (principal); F41.1 Generalized anxiety disorder; Z63.4 Disappearance and death of family member; F43.12 Post-traumatic stress disorder, chronic; F41.0 Panic disorder [episodic paroxysmal anxiety] | CPT/HCPCS: 90834 ==

== ENCOUNTER → 2021-02-27 07:31 | Outpatient (BNVA) | payer MEDICAID, SELFPAY | PROVIDERS: PCP Family Medicine; Visit Provider Nurse Practitioner Psychiatric/Mental Health | DX: F33.1 Major depressive disorder, recurrent, moderate (principal); F41.1 Generalized anxiety disorder; Z63.4 Disappearance and death of family member; F17.210 Nicotine dependence, cigarettes, uncomplicated; F43.12 Post-traumatic stress disorder, chronic; F41.0 Panic disorder [episodic paroxysmal anxiety] | CPT/HCPCS: 99214 ==

== ENCOUNTER → 2021-03-17 14:15 | Outpatient (BNVA) | payer MEDICAID, SELFPAY | PROVIDERS: PCP Family Medicine; Visit Provider Family Medicine | DX: E66.01 Morbid (severe) obesity due to excess calories (principal); Z68.43 Body mass index [BMI] 50.0-59.9, adult | CPT/HCPCS: 80053; 83036; 84443; 85025 ==

== ENCOUNTER → 2021-04-10 08:34 | Outpatient (BNVA) | payer MEDICAID, SELFPAY | PROVIDERS: PCP Family Medicine; Visit Provider Nurse Practitioner Psychiatric/Mental Health | DX: F33.1 Major depressive disorder, recurrent, moderate (principal); F41.1 Generalized anxiety disorder; F17.210 Nicotine dependence, cigarettes, uncomplicated; Z63.4 Disappearance and death of family member; F43.12 Post-traumatic stress disorder, chronic; F41.0 Panic disorder [episodic paroxysmal anxiety] | CPT/HCPCS: 99214 ==

== ENCOUNTER → 2021-05-07 07:30 | Outpatient (BNVA) | payer MEDICAID, SELFPAY | PROVIDERS: PCP Family Medicine; Visit Provider Nurse Practitioner Psychiatric/Mental Health | DX: F33.1 Major depressive disorder, recurrent, moderate (principal); F41.1 Generalized anxiety disorder; F17.210 Nicotine dependence, cigarettes, uncomplicated; F43.12 Post-traumatic stress disorder, chronic; Z63.4 Disappearance and death of family member; F41.0 Panic disorder [episodic paroxysmal anxiety] | CPT/HCPCS: 99214 ==

== ENCOUNTER → 2021-06-02 07:15 | Outpatient (BNVA) | payer OTHER, MEDICAID, SELFPAY | PROVIDERS: PCP Family Medicine; Visit Provider Nurse Practitioner Psychiatric/Mental Health | DX: F33.1 Major depressive disorder, recurrent, moderate (principal); F41.1 Generalized anxiety disorder; F43.12 Post-traumatic stress disorder, chronic; F41.0 Panic disorder [episodic paroxysmal anxiety]; Z63.4 Disappearance and death of family member; F17.210 Nicotine dependence, cigarettes, uncomplicated | CPT/HCPCS: 99214 ==

== ENCOUNTER → 2021-06-04 07:58 | Outpatient (BNVA) | payer MEDICAID, SELFPAY | PROVIDERS: PCP Family Medicine; Visit Provider Counselor Professional | DX: F33.1 Major depressive disorder, recurrent, moderate (principal); F41.1 Generalized anxiety disorder; Z63.4 Disappearance and death of family member; F43.12 Post-traumatic stress disorder, chronic; F41.0 Panic disorder [episodic paroxysmal anxiety]; F17.210 Nicotine dependence, cigarettes, uncomplicated | CPT/HCPCS: 90834 ==

== ENCOUNTER → 2021-08-24 07:36 | Outpatient (BNVA) | payer OTHER, SELFPAY | PROVIDERS: PCP Family Medicine; Visit Provider Nurse Practitioner Psychiatric/Mental Health | DX: F33.1 Major depressive disorder, recurrent, moderate (principal); F41.1 Generalized anxiety disorder; F17.210 Nicotine dependence, cigarettes, uncomplicated; F43.12 Post-traumatic stress disorder, chronic; F41.0 Panic disorder [episodic paroxysmal anxiety] | CPT/HCPCS: 99214 ==

== ENCOUNTER → 2021-09-28 08:37 | Outpatient (BNVA) | payer OTHER, SELFPAY | PROVIDERS: PCP Family Medicine; Visit Provider Nurse Practitioner Psychiatric/Mental Health | DX: F33.1 Major depressive disorder, recurrent, moderate (principal); F41.1 Generalized anxiety disorder; F43.12 Post-traumatic stress disorder, chronic; F17.210 Nicotine dependence, cigarettes, uncomplicated; F41.0 Panic disorder [episodic paroxysmal anxiety]; Z72.0 Tobacco use | CPT/HCPCS: 99214 ==

== ENCOUNTER → 2021-10-22 11:57 | Outpatient (BNVA) | payer OTHER, SELFPAY | PROVIDERS: PCP Family Medicine; Visit Provider Nurse Practitioner Family | DX: J02.9 Acute pharyngitis, unspecified (principal) | CPT/HCPCS: 87880 ==

== ENCOUNTER 2021-10-28 14:15 | Emergency (ER) | payer MEDICAID, SELFPAY ==
--- NOTE | 2021-10-28 14:31 | XRR_ITS ---
PROCEDURE INFORMATION: Exam: XR Chest Exam date and time: 10/28/2021 2:31 PM Age: 46 years old Clinical indication: Cough and shortness of breath; Additional info: SOB, cough TECHNIQUE: Imaging protocol: XR of the chest. Views: 1 view. COMPARISON: CR XR chest 1V portable [id number] 02/20/2020 11:05 AM FINDINGS: Lungs: Unremarkable. No consolidation. Pleural spaces: Unremarkable. No pleural effusion. No pneumothorax. Heart/Mediastinum: Unremarkable. No cardiomegaly. Bones/joints: Unremarkable. XR/XR chest 1V portable [id number] IMPRESSION: No acute findings.
[2021-10-28 14:34] VITALS: BP 142/75; PULSE 126; RESP 18; TEMP 36.6; O2SAT 98; BMI 52.9
[2021-10-28 15:26] LABS: Basophils # 0.1 10^3/uL (0.0-0.1); Basophils % 0.4 %; Eosinophils # 0.1 10^3/uL (0.0-0.8); Eosinophils % 1.2 %; Hematocrit 38.7 % (37.0-47.0); Hemoglobin 12.7 g/dL (11.5-15.3); Lymphocytes # 3.2 10^3/uL (0.8-4.8); Lymphocytes % 26.7 %; Mean Corpuscular HGB Conc 32.8 g/dL (30.0-36.0); Mean Corpuscular Hemoglobin 26.5 pg (28.0-34.0); Mean Corpuscular Volume 80.6 fl (81-99); Mean Platelet Volume 9.4 fL (7.4-10.4); Monocytes # 0.5 10^3/uL (0.2-0.9); Monocytes % 4.2 %; Neutrophils # 7.97 10^3/uL (1.8-7.7); Nucleated Red Blood Cells % 0 %; Platelet Count 526 10^3/cmm (130-400); Red Cell Distribution Width 14.6 % (12.1-15.1); White Blood Count 11.9 10^3/uL (4.0-10.0)
[2021-10-28 15:54] LABS: Alanine Aminotransferase 21 U/L (0-33); Alkaline Phosphatase 101 IU/L (35-105); Aspartate Amino Transferase 20 U/L (0-32); Blood Urea Nitrogen 8 mg/dL (6-20); Calcium 8.7 mg/dL (8.5-10.5); Carbon Dioxide 20 mmol/L (22-29); Chloride 103 mmol/L (98-107); Creatinine Clr Calc Pharmacy 150.1334; Globulin 2.8 g/dL (1.3-4.6); Glomerular Filtration Rate 108.6 mL/min (90-130); Glucose 138 mg/dL (65-115); Osmolality Calculated 289 mOsm/kg (285-295); Sodium 139 mmol/L (136-145); Total Bilirubin 0.2 mg/dL (0.15-1.2); Total Protein 6.8 g/dL (6.6-8.7)
[2021-10-28 16:22] LABS: SARS Covid-2 Antigen Negative (Negative)
--- NOTE | 2021-10-28 16:38 | W.ED.SOB ---
HPI - SOB/Dyspnea General: Chief Complaint: Shortness of Breath/Dyspnea Stated Complaint: COUGH/SOB/FATIGUE Time Seen by Provider: 10/28/21 16:38 History of Present Illness: HPI Narrative: Ms. Dietrich is a 46-year-old lady with history of tobaccoism who presents to the emergency department due to shortness of breath. Symptom onset was approximately 5 days ago. She endorses generalized malaise, cough which is now productive with leon/rust colored, and nausea. She was initially seen by PCP and symptoms were attributed to allergies however allergy meds have not improved symptoms. She has generalized aches, loose stools. Symptoms have been worsening. Intensity is moderate. No other specific changes to health, exacerbating, or alleviating factors. Review of Systems General: Reports: 10 or more systems reviewed and unremarkable except in HPI and below PFSH ED PFSH: Medical History Anxiety Chronic pain Chronic post-traumatic stress disorder Current every day nicotine vaping Generalized anxiety disorder GERD (gastroesophageal reflux disease) Major depressive disorder, recurrent, moderate Nicotine dependence, cigarettes, uncomplicated Obesity Panic disorder without agoraphobia Psychiatric care Surgical History History of 3 sections 1993,1999,2002 History of dilation and curettage (~2012) History of foot surgery BILATERAL- PLANTAR FASCITIS RELEASE History of hysterectomy (~2018) History of laparoscopic cholecystectomy (~2014) History of tubal ligation (~2002) Family History Father Hypertension Heart disease Diabetes Mother Thyroid condition Diabetes Obesity Grandmother Obesity Denies family history of Anesthesia complication Bleeding disorder Social History Smoking and tobacco status: current every day smoker cigarettes Packs smoked per day: 0.75 Years cigarettes smoked: 25 Alcohol intake: never Flakita/Christianity: None Physical Exam Narrative: EXAM NARRATIVE: GENERAL/CONSTITUTIONAL -mildly ill-appearing. Eyes - PERRL, no conjunctival injection ENMT - Atraumatic external nose and ears. Moist mucous membranes NECK - supple. trachea midline CARDIOVASCULAR -tachycardic rate and regular rhythm. Normal peripheral perfusion RESPIRATORY - diminished to auscultation bilaterally. Increased work of breathing mildly. No significant accessory muscle use or distress ABDOMEN/GI - Nontender/Nondistended. No tenderness to percussion or evidence of peritonitis MSK - Extremities without obvious deformity or tenderness to palpation SKIN - Warm, Dry NEURO - alert and appropriately oriented. Moves all extremities equally. Course ED course: - Patient was seen and evaluated by me at bedside - Patient placed on cardiac monitors, IV access obtained - Initial evaluation notable for mildly ill as noted above, nontoxic -Symptom treatment ordered - Labs notable for mild leukocytosis. No significant electrolyte derangement, likely mild evidence of dehydration. Negative rapid Covid - Imaging notable for no acute finding on chest x-ray - Upon serial reexamination after treatment the patient was somewhat improved - Based on patient history, evaluation, labs, and imaging as interpreted the most likely cause of the patient's condition is exacerbation of the underlying lung disease, even if not formally diagnosed, due to smoking history - The results of ED evaluation were discussed with the patient including prescriptions and/or symptomatic cares (if applicable) including appropriate and responsible use, followup plan, and return precautions. The patient verbalized understanding and felt safe for discharge. - Patient discharged in satisfactory condition. Vital Signs: Vital signs: Vital Signs Temperature 97.8 F 10/28/21 14:34 Pulse Rate 101 H 10/28/21 19:45 Respiratory Rate 16 10/28/21 17:31 Blood Pressure 156/97 10/28/21 19:45 Pulse Oximetry 100 10/28/21 19:45 MDM - SOB/Dyspnea Medical Records: Attestation: I reviewed the patient's medical records. Lab Data: Attestation: I reviewed the patient's lab results. Labs: Lab Results 10/28/21 10/28/21 10/28/21 15:11 15:11 15:11 WBC 11.9 10^3/uL H 10 ^3/uL (4.0-10.0) RBC 4.80 10^6/uL 10^6 /uL (4.1-5.3) Hgb 12.7 g/dL g/dL (11.5-15.3) Hct 38.7 % % (37.0-47.0) MCV 80.6 fl L fl (81-99) MCH 26.5 pg L pg (28.0-34.0) MCHC 32.8 g/dL g/dL (30.0-36.0) RDW 14.6 % % (12.1-15.1) Plt Count 526 10^3/cmm H 10 ^3/cmm (130-400) MPV 9.4 fL fL (7.4-10.4) Neut % (Auto) 67.0 % % Lymph % (Auto) 26.7 % % [place] % (Auto) 4.2 % % Eos % (Auto) 1.2 % % Baso % (Auto) 0.4 % % Neut # (Auto) 7.97 10^3/uL H 10 ^3/uL (1.8-7.7) Lymph # (Auto) 3.2 10^3/uL 10^3/ uL (0.8-4.8) [place] # (Auto) 0.5 10^3/uL 10^3/ uL (0.2-0.9) Eos # (Auto) 0.1 10^3/uL 10^3/ uL (0.0-0.8) Baso # (Auto) 0.1 10^3/uL 10^3/ uL (0.0-0.1) Nucleated RBC % (a uto) 0 % % Nucleated RBCs # 0.0 /100WBC /100W BC Sodium 139 mmol/L mmol/L (136-145) Potassium 4.0 mmol/L mmol/L (3.5-5.1) Chloride 103 mmol/L mmol/L (98-107) Carbon Dioxide 20 mmol/L L mmol/ L (22-29) Anion Gap 20.0 H (5-19) BUN 8 mg/dL mg/dL (6-20) Creatinine 0.6 mg/dL mg/dL (0.5-0.9) GFR Calculation 108.6 mL/min mL/m in (90-130) Glucose 138 mg/dL H mg/dL (65-115) Calculated Osmolal ity 289 mOsm/kg mOsm/ kg (285-295) Calcium 8.7 mg/dL mg/dL (8.5-10.5) Total Bilirubin 0.2 mg/dL mg/dL (0.15-1.2) AST 20 U/L U/L (0-32) ALT 21 U/L U/L (0-33) Alkaline Phosphata se 101 IU/L IU/L (35-105) Total Protein 6.8 g/dL g/dL (6.6-8.7) Albumin 4.0 g/dL g/dL (3.5-5.2) Globulin 2.8 g/dL g/dL (1.3-4.6) Nasal/Oral COVID-1 9 PCR Influenza Type A A g Influenza Type B A g SARS-CoV-2 Ag (Rap id) Negative (Negative) 10/28/21 10/28/21 17:50 17:50 WBC RBC Hgb Hct MCV MCH MCHC RDW Plt Count MPV Neut % (Auto) Lymph % (Auto) [place] % (Auto) Eos % (Auto) Baso % (Auto) Neut # (Auto) Lymph # (Auto) [place] # (Auto) Eos # (Auto) Baso # (Auto) Nucleated RBC % (a uto) Nucleated RBCs # Sodium Potassium Chloride Carbon Dioxide Anion Gap BUN Creatinine GFR Calculation Glucose Calculated Osmolal ity Calcium Total Bilirubin AST ALT Alkaline Phosphata se Total Protein Albumin Globulin Nasal/Oral COVID-1 9 PCR Not detected Influenza Type A A g Negative (Negative) Influenza Type B A g Negative (Negative) SARS-CoV-2 Ag (Rap id) Discharge Plan Discharge Patient Disposition: Home Clinical Impression: Cough, Acute exacerbation of chronic obstructive airways disease Condition: Stable Prescriptions: New albuterol sulfate 90 mcg/actuation HFA aerosol inhaler See Rx Instructions .ROUTE .COMPLEX PRN (Reason: shortness of breath or wheezing) Qty: 8.5 RF: 2 doxycycline hyclate 100 mg tablet 100 mg PO BID 7 Days Qty: 14 RF: 0 No Action naproxen 500 mg tablet 500 mg PO BID 30 Days Qty: 60 RF: 2 (DME) Night Splint See Rx Instructions .Route .MEDSUPPLY Qty: 1 RF: 0 venlafaxine [Effexor XR] 150 mg capsule,extended release 24hr 150 mg PO QAM Qty: 30 RF: 6 venlafaxine [Effexor XR] 75 mg capsule,extended release 24hr 75 mg PO QAM Qty: 30 RF: 6 hydroxyzine pamoate 50 mg capsule 50 mg PO BID PRN (Reason: anxiety) Qty: 30 RF: 3 Protonix 40 mg tablet,delayed release (DR/EC) 40 mg PO .morning 90 Days Qty: 90 RF: 1 estradiol 1 mg tablet 1 mg PO DAILY 90 Days Qty: 90 RF: 0 Triple Antibiotic 3.5mg-400 unit- 5,000 unit/gram ointment 1 applic topical BID Qty: 30 RF: 0 Discharge Orders: Discharge ED (Routine); Ordered 10/28/21 Ordered By: Adama Andrew Referrals: Tatyana Bhatia DO [Primary Care Provider] - Discharge Diet: Usual diet Discharge Activity: Resume usual activity Patient Instructions: COPD (Chronic Obstructive Pulmonary Disease) (ED) Activity Restrictions/Additional Instructions: Thank you for visiting the emergency department. You were seen and evaluated for shortness of breath and cough. The exact cause of your symptoms is unclear though may be related to viral exacerbation of your lung disease related to smoking. Please follow-up with your primary care provider. Please return to the emergency department for worsening symptoms or anything else that you are concerned about and feel needs emergency department evaluation. 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
[2021-10-28 16:46] VITALS: BP 130/88; PULSE 104; RESP 20; O2SAT 97
[2021-10-28] MEDS: ipratropium-albuterol 3 mL Neb INHALATION (17:23)
[2021-10-28 17:28] VITALS: PULSE 107; RESP 16; O2SAT 98
[2021-10-28] MEDS: sodium chloride 0.9% 1,000 ML 999 ML IV (17:28)
[2021-10-28] MEDS: acetaminophen 500 mg Tablet 1000 MG PO (17:29)
[2021-10-28 17:31] VITALS: PULSE 105; RESP 16; O2SAT 98
[2021-10-28 18:17] LABS: Influenza A by IFA Negative (Negative); Influenza B by IFA Negative (Negative)
[2021-10-28 19:35] VITALS: BP 156/97; PULSE 88; O2SAT 100
[2021-10-28] MEDS: doxycycline 100 mg Tablet PO (19:36)
[2021-10-28 19:45] VITALS: BP 156/97; PULSE 101; O2SAT 100
[2021-10-29 15:12] LABS: Coronavirus Test Green County Not Detected
== END 2021-10-28 19:47 | disposition home or self-care (01) ==
PROVIDERS: Physician Assistant; Emergency Provider Emergency Medicine; PCP Family Medicine
DX: J44.1 Chronic obstructive pulmonary disease with (acute) exacerbation (principal); F17.210 Nicotine dependence, cigarettes, uncomplicated; Z20.822 Contact with and (suspected) exposure to COVID-19
CPT/HCPCS: 71045; 80053; 85025; 87426; 87635; 87804; 94640; 96361; 96374; 99284; J2930; J7030

== ENCOUNTER 2021-10-31 19:11 | Emergency (ER) | payer MEDICAID, SELFPAY ==
[2021-10-31 20:08] VITALS: BP 146/93; PULSE 114; RESP 18; TEMP 36.6; O2SAT 97; BMI 52.9
--- NOTE | 2021-10-31 20:28 | ED_ITS ---
HPI - Burn/Smoke Inhalation General: Chief complaint: Burn/Smoke Inhalation Stated complaint: RT Hand Burn Time Seen by Provider: 10/31/21 20:17 History of Present Illness: HPI Narrative: Patient is a 46-year-old female comes to the ED with right hand burn. Injury occurred approximately 2-1/2 hours ago. Patient accidentally put right hand onto hot burner. Patient has some blistering in the palm and fingers and she rates her pain currently a 10 out of 10. Pain improves with hand in cold water. She took some ibuprofen before coming to the ED. Associated symptoms: Deny chest pain, fever(s), headache(s), nausea, neck pain or vomiting Review of Systems Const: Denies: fever(s), chills or fatigue Eyes: Denies: change in vision or eye discomfort ENMT: Denies: throat pain, odynophagia, nasal discharge or nasal congestion Card: Denies: chest pain, palpitations, edema, swelling of feet/ankles, dyspnea on exertion or orthopnea Resp: Denies: dyspnea, productive cough or non-productive cough GI: Denies: abdominal pain, nausea, vomiting, diarrhea, constipation or hematochezia : Denies: flank pain, dysuria or hematuria Musc: Denies: neck pain, back pain or extremity swelling Skin/Breast: Reports: new lesions (Burn to right hand); Denies: rash Neuro: Denies: headache(s), numbness in extremities or weakness in extremities [facility] ED PFSH: Medical History Anxiety Chronic pain Chronic post-traumatic stress disorder Current every day nicotine vaping Generalized anxiety disorder GERD (gastroesophageal reflux disease) Major depressive disorder, recurrent, moderate Nicotine dependence, cigarettes, uncomplicated Obesity Panic disorder without agoraphobia Psychiatric care Surgical History History of 3 sections 1994,1999,2002 History of dilation and curettage (~2012) History of foot surgery BILATERAL- PLANTAR FASCITIS RELEASE History of hysterectomy (~2018) History of laparoscopic cholecystectomy (~2014) History of tubal ligation (~2002) Family History Father Hypertension Heart disease Diabetes Mother Thyroid condition Diabetes Obesity Grandmother Obesity Denies family history of Anesthesia complication Bleeding disorder Social History Smoking and tobacco status: current every day smoker cigarettes Packs smoked per day: 0.75 Years cigarettes smoked: 25 Alcohol intake: never [place]/Church: None Physical Exam Const: COMMON NORMALS: no acute distress, patient oriented x3 and alert GENERAL APPEARANCE: cooperative and comfortable NUTRITIONAL APPEARANCE: obese HENMT: COMMON NORMALS: normocephalic HEAD & SCALP: normocephalic MOUTH: Normal oral and palatal mucosa present THROAT: posterior oropharynx normal and uvula midline Neck/C-Spine: COMMON NORMALS: supple GENERAL: Yes normal visual inspection Resp: COMMON NORMALS: normal respiratory effort, No retractions, No use of accessory muscles and clear to auscultation bilaterally AUSCULTATION: clear to auscultation bilaterally Cardio: COMMON NORMALS: regular rate, regular rhythm, S1 normal heart sound present, S2 normal heart sound present, No gallops present (Cardio), No clicks present (Cardio), No murmurs present (Cardio) and Peripheral pulses 2+ throughout RATE: regular rate RHYTHM: regular rhythm HEART SOUNDS: S1 normal heart sound present and S2 normal heart sound present PERIPHERAL PULSES: Peripheral pulses 2+ throughout GI: COMMON NORMALS: Normal to inspection, nondistended, normoactive bowel sounds present, Soft to palpation, non-tender and no masses PALPATION: Yes Soft to palpation : COMMON NORMALS: Yes no CVA tenderness BLADDER/KIDNEY EXAM: Yes no CVA tenderness Back/Pelvis: COMMON NORMALS: no CVA tenderness Extremity: COMMON NORMALS: full ROM NARRATIVE EXTREMITY EXAM: Right hand-palm. Just below digits has multiple very small blisters noted. Patient also appears to have some small blisters to the distal end of digits 2 through 5. GENERAL: Yes normal exam except as noted Neuro: COMMON NORMALS: patient oriented x3 and moves all extremities SENSORIUM/ORIENTATION: Yes alert Skin: GENERAL SKIN EXAM: dry skin Course Vital Signs: Vital signs: Vital Signs Temperature 97.9 F 10/31/21 20:08 Pulse Rate 104 H 10/31/21 21:23 Respiratory Rate 18 10/31/21 21:23 Blood Pressure 146/93 10/31/21 20:08 Pulse Oximetry 98 10/31/21 21:23 MDM - Burn/Smoke Inhalation MDM Narrative: Medical decision making narrative: Patient is a 46-year-old female comes to the ED with thermal burn to right hand. Patient briefly put right hand onto hot stove top. Right hand exam?she has a very small blisters to palm side of hand and distal ends of digits 2 through 5. Range of motion in hand intact. Patient's right hand was irrigated extensively with normal saline and then nurse applied triple antibiotic ointment and bandage over right hand to help with symptoms. Patient was also given a dose of hydrocodone while here in the ED to help with pain. Patient diagnosed with second-degree russell of right hand and discharged home with a prescription for triple antibiotic ointment and a written prescription for hydrocodone 5/325 mg number 8 tablets for pain. She was instructed on how to care for and treat burn. She was told not to pop any blisters. Follow-up with PCP in 5 to 7 days reevaluation. Return to ED p recautions given. Patient understood agree with plan. Discharge Plan Discharge Patient Disposition: Home Clinical Impression: Second degree burn of hand Qualifiers: Encounter type: initial encounter Burn of hand location: multiple sites Laterality: right Qualified Code(s): T23.201A - Burn of second degree of right hand, unspecified site, initial encounter Condition: Stable Prescriptions: New Triple Antibiotic 3.5mg-400 unit- 5,000 unit/gram ointment 1 applic topical BID Qty: 30 RF: 0 No Action naproxen 500 mg tablet 500 mg PO BID 30 Days Qty: 60 RF: 2 (DME) Night Splint See Rx Instructions .Route .MEDSUPPLY Qty: 1 RF: 0 Protonix 40 mg tablet,delayed release (DR/EC) 40 mg PO .morning 90 Days Qty: 90 RF: 1 venlafaxine [Effexor XR] 150 mg capsule,extended release 24hr 150 mg PO QAM Qty: 90 RF: 2 venlafaxine [Effexor XR] 75 mg capsule,extended release 24hr 75 mg PO QAM Qty: 90 RF: 2 hydroxyzine pamoate 50 mg capsule 50 mg PO BID PRN (Reason: anxiety) Qty: 180 RF: 2 estradiol 1 mg tablet 1 mg PO DAILY 90 Days Qty: 90 RF: 0 albuterol sulfate 90 mcg/actuation HFA aerosol inhaler See Rx Instructions .ROUTE .COMPLEX PRN (Reason: shortness of breath or wheezing) Qty: 8.5 RF: 2 prednisone 50 mg tablet 50 mg PO DAILY 5 Days Qty: 5 RF: 0 doxycycline hyclate 100 mg tablet 100 mg PO BID 7 Days Qty: 14 RF: 0 Discharge Orders: Discharge ED (Routine); Ordered 10/31/21 Ordered By: Cricket Bruce Referrals: Tatyana Bhatia DO [Primary Care Provider] - Discharge Diet: Regular Discharge Activity: Limit activity as instructed Patient Instructions: Thermal Russell, Opioid Safety Activity Restrictions/Additional Instructions: Follow-up with medical provider as directed at your next scheduled appointment this coming week. Clean and daily with soap and water and apply triple antibiotic ointment over russell and blisters and bandage. You can do this twice a day. Do not pop blisters. take medications as prescribed. Return to the ER or your medical provider if condition worsens. Please read and understand discharge instructions. Thank you for choosing [facility] for your healthcare needs today. Please realize this is an emergency room and that we are providing you with a medical screening exam and this may not be complete and all inclusive of all the testing and or work up that you may need to determine your ailment or severity of your illness. It is very important that you follow up as instructed or that you return to the Emergency Department should you have concerns or if your condition changes or worsens in any way. Coding Level of Care Code ED Clutch Specialist for Camille Ibarra
[2021-10-31] MEDS: HYDROcodone-acetaminophen 7.5-325 mg Tablet 1 TAB PO (20:36)
[2021-10-31 21:23] VITALS: PULSE 104; RESP 18; O2SAT 98
== END 2021-10-31 21:24 | disposition home or self-care (01) ==
PROVIDERS: Emergency Provider Physician Assistant; PCP Family Medicine
DX: T23.251A Burn of second degree of right palm, initial encounter (principal); T23.231A Burn of second degree of multiple right fingers (nail), not including thumb, initial encounter; X15.0XXA Contact with hot stove (kitchen), initial encounter; F17.210 Nicotine dependence, cigarettes, uncomplicated
CPT/HCPCS: 99283

== ENCOUNTER → 2021-11-02 07:43 | Outpatient (BNVA) | payer MEDICAID, SELFPAY | PROVIDERS: PCP Family Medicine; Visit Provider Nurse Practitioner Psychiatric/Mental Health | DX: F33.1 Major depressive disorder, recurrent, moderate (principal); F41.1 Generalized anxiety disorder; F43.12 Post-traumatic stress disorder, chronic; F17.210 Nicotine dependence, cigarettes, uncomplicated; F41.0 Panic disorder [episodic paroxysmal anxiety]; Z72.0 Tobacco use | CPT/HCPCS: 99214 ==

== ENCOUNTER 2021-11-07 23:28 | Inpatient (IN) | payer MEDICAID, SELFPAY ==
[2021-11-07 23:40] VITALS: BP 124/84; PULSE 121; RESP 32; TEMP 38.3; O2SAT 95; BMI 52.9
[2021-11-08] VITALS (14 sets, daily range): BP systolic 114–171; BP diastolic 72–95; PULSE 76–114; RESP 14–31; TEMP 36.9; O2SAT 92–98; BMI 52.9
--- NOTE | 2021-11-08 00:42 | ECG_ITS ---
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: : 1975 Requested By: Darell Harley Order Number: [id number] Reading MD: RIMA PARTIDA Measurements Intervals [place] Rate: 109 P: 49 [place]: 128 QRS: 62 QRSD: 85 T: 53 QT: 333 QTc: 449 Interpretive Statements SINUS TACHYCARDIA LOW QRS VOLTAGE IN PRECORDIAL LEADS [QRS DEFLECTION < 1.0 mV IN CHEST LEADS] ABNORMAL RHYTHM ECG Compared to ECG 03/09/2019 21:01:22 Low QRS voltage now present Sinus rhythm no longer present Electronically Signed On 11-08-2021 19:58:30 [employer] by RIMA PARTIDA [id number]
--- NOTE | 2021-11-08 00:42 | XRR_ITS ---
PROCEDURE INFORMATION: Exam: XR Chest Exam date and time: 11/08/2021 12:42 AM Age: 46 years old Clinical indication: Cough and shortness of breath; Chest wall pain; Prior surgery; Surgery type: Gb; Patient HX: Left sided chest pain with cough and SOB. History of copd. TECHNIQUE: Imaging protocol: XR of the chest. Views: 1 view. COMPARISON: CR XR chest 1V portable [id number] 10/28/2021 2:53 PM FINDINGS: Lungs: Unremarkable. No consolidation. Pleural spaces: Unremarkable. No pleural effusion. No pneumothorax. Heart/Mediastinum: Unremarkable. No cardiomegaly. Bones/joints: Unremarkable. XR/XR chest 1V portable [id number] IMPRESSION: No acute findings.
[2021-11-08 01:40] LABS: Basophils % 0.2 %; Eosinophils % 0.2 %; Hematocrit 35.7 % (37.0-47.0); Hemoglobin 11.4 g/dL (11.5-15.3); Mean Corpuscular HGB Conc 31.9 g/dL (30.0-36.0); Mean Corpuscular Volume 81.3 fl (81-99); Mean Platelet Volume 9.8 fL (7.4-10.4); Monocytes # 0.5 10^3/uL (0.2-0.9); Monocytes % 5.9 %; Neutrophils % 71.5 %; Nucleated Red Blood Cells % 0 %; Platelet Count 409 10^3/cmm (130-400); Red Blood Count 4.39 10^6/uL (4.1-5.3); Red Cell Distribution Width 15.4 % (12.1-15.1); White Blood Count 9.1 10^3/uL (4.0-10.0)
[2021-11-08 02:03] LABS: Troponin(5th) Baseline 6 ng/L (0-10)
[2021-11-08 02:10] LABS: NT Pro B Type Natriuretic Pept 139 pg/mL (0-125); Procalcitonin 0.05 ng/mL (0-0.5)
[2021-11-08 02:21] LABS: Alanine Aminotransferase 24 U/L (0-33); Albumin Level 3.6 g/dL (3.5-5.2); Alkaline Phosphatase 78 IU/L (35-105); Anion Gap 20.2 (5-19); Aspartate Amino Transferase 18 U/L (0-32); Blood Urea Nitrogen 5 mg/dL (6-20); C Reactive Protein 42.1 mg/L (0.0-4.9); Calcium 8.1 mg/dL (8.5-10.5); Carbon Dioxide 18 mmol/L (22-29); Chloride 99 mmol/L (98-107); Creatinine Clr Calc Pharmacy 150.1334; Globulin 2.6 g/dL (1.3-4.6); Glomerular Filtration Rate 108.6 mL/min (90-130); Glucose 104 mg/dL (65-115); Osmolality Calculated 274 mOsm/kg (285-295); Potassium 4.2 mmol/L (3.5-5.1); Sodium 133 mmol/L (136-145); Total Bilirubin 0.2 mg/dL (0.15-1.2); Total Protein 6.2 g/dL (6.6-8.7)
[2021-11-08] MEDS: ipratropium-albuterol 3 mL Neb INHALATION ×2 (02:25→16:33)
[2021-11-08 02:34] LABS: SARS Covid-2 Antigen Negative (Negative)
--- NOTE | 2021-11-08 02:42 | ECG_ITS ---
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: : 1975 Requested By: Darell Harley Order Number: [id number] Reading MD: RIMA PARTIDA Measurements Intervals [employer] Rate: 113 P: 43 [place]: 119 QRS: 64 QRSD: 91 T: 50 QT: 344 QTc: 473 Interpretive Statements SINUS TACHYCARDIA WITH SHORT [place] INTERVAL LOW QRS VOLTAGE IN PRECORDIAL LEADS [QRS DEFLECTION < 1.0 mV IN CHEST LEADS] ABNORMAL RHYTHM ECG Compared to ECG 11/08/2021 00:57:02 Short [place] interval now present Electronically Signed On 11-08-2021 19:59:36 ASSISTANT DESIGNER by RIMA PARTIDA [id number]
[2021-11-08 04:02] LABS: D Dimer 1.15 ug/mIFEU (0-0.59)
--- NOTE | 2021-11-08 04:06 | ED_ITS ---
Documented by User: Darell Jones, 11/08/21 06:06 HPI - Chest Pain General: Chief Complaint: Chest Pain Stated Complaint: chest pain Time Seen by Provider: 11/07/21 23:51 History of Present Illness: HPI narrative: 46-year-old female treated 10 days ago for COPD exacerbation. She notes that when her steroids ran out, she began to get symptomatic again. She presents with chest discomfort and shortness of breath. She has been coughing. No fever. She finished her antibiotics as well. She tested negative for Covid at that time. MD complaint: chest pain Pertinent past history: other Onset (ago): day(s) Pain location: substernal, left chest and right chest Relieving factors: nothing Exacerbating factors: nothing Associated symptoms: Reports dyspnea; Deny abdominal pain, fever(s), leg edema, palpitations or vomiting Treatment prior to arrival: other Review of Systems Const: Reports: body aches; Denies: fever(s) or chills Card: Reports: chest pain; Denies: palpitations Resp: Reports: dyspnea, non-productive cough and wheezing GI: Denies: abdominal pain or vomiting PFSH ED PFSH: Medical History Anxiety Arthritis, midfoot Chronic pain Chronic post-traumatic stress disorder Current every day nicotine vaping Encounter for pre-bariatric surgery counseling and education Generalized anxiety disorder GERD (gastroesophageal reflux disease) Hot flashes due to menopause Leg edema Major depressive disorder, recurrent, moderate Nicotine dependence, cigarettes, uncomplicated Obesity Panic disorder without agoraphobia Plantar fasciitis, bilateral Psychiatric care Surgical History History of 3 sections 1993,1999,2002 History of dilation and curettage (~2012) History of foot surgery BILATERAL- PLANTAR FASCITIS RELEASE History of hysterectomy (~2018) History of laparoscopic cholecystectomy (~2014) History of tubal ligation (~2002) Family History Father Hypertension Heart disease Diabetes Mother Thyroid condition Diabetes Obesity Grandmother Obesity Denies family history of Anesthesia complication Bleeding disorder Social History Alcohol intake: never Flakita/Cheondoism: None Physical Exam Const: COMMON NORMALS: no acute distress, patient oriented x3 and alert GENERAL APPEARANCE: cooperative and ill appearing Chest: COMMONS NORMALS: normal inspection of the chest Resp: EFFORT & INSPECTION: Yes tachypneic and Yes labored AUSCULTATION: wheezes Cardio: COMMON NORMALS: regular rate and regular rhythm RATE: regular rate RHYTHM: regular rhythm GI: COMMON NORMALS: Normal to inspection, nondistended, normoactive bowel sounds present and Soft to palpation PALPATION: Yes Soft to palpation and No Tenderness to palpation present (GI) Neuro: COMMON NORMALS: patient oriented x3 SENSORIUM/ORIENTATION: Yes alert Course Vital Signs: Vital signs: Vital Signs Temperature 101.0 F H 11/07/21 23:40 Pulse Rate 94 11/08/21 06:42 Respiratory Rate 20 H 11/08/21 06:42 Blood Pressure 154/86 11/08/21 06:42 Pulse Oximetry 96 11/08/21 06:42 MDM - Chest Pain MDM Narrative: Medical decision making narrative: 46-year-old female with chest discomfort and shortness of breath. She is requiring some oxygen now. White blood cell count is 9.1. Hemoglobin 11.4. Bicarbonate 18. Her troponin did not elevated 2 hours. Her EKG shows sinus tachycardia with possible right atrium enlargement. Her D-dimer was elevated. CTA is pending. She has received Solu-Medrol, DuoNeb treatment, and oxygen. She is febrile on arrival. Her chest x-ray is negative. She'll be checked out to Dr. Nation at shift change pending CTA result. Lab Data: Labs: Lab Results 11/08/21 11/08/21 11/08/21 00:20 00:20 00:20 WBC 9.1 10^3/uL 10^3/ uL (4.0-10.0) RBC 4.39 10^6/uL 10^6 /uL (4.1-5.3) Hgb 11.4 g/dL L g/dL (11.5-15.3) Hct 35.7 % L % (37.0-47.0) MCV 81.3 fl fl (81-99) MCH 26.0 pg L pg (28.0-34.0) MCHC 31.9 g/dL g/dL (30.0-36.0) RDW 15.4 % H % (12.1-15.1) Plt Count 409 10^3/cmm H 10 ^3/cmm (130-400) MPV 9.8 fL fL (7.4-10.4) Neut % (Auto) 71.5 % % Lymph % (Auto) 22.0 % % [place] % (Auto) 5.9 % % Eos % (Auto) 0.2 % % Baso % (Auto) 0.2 % % Neut # (Auto) 6.50 10^3/uL 10^3 /uL (1.8-7.7) Lymph # (Auto) 2.0 10^3/uL 10^3/ uL (0.8-4.8) [place] # (Auto) 0.5 10^3/uL 10^3/ uL (0.2-0.9) Eos # (Auto) 0.0 10^3/uL 10^3/ uL (0.0-0.8) Baso # (Auto) 0.0 10^3/uL 10^3/ uL (0.0-0.1) Nucleated RBC % (a uto) 0 % % Nucleated RBCs # 0.0 /100WBC /100W BC D-Dimer Specimen Type Sample Site ABG pH ABG pCO2 ABG pO2 ABG HCO3 ABG Base Excess Kin Test Hematocrit O2 Delivery Device O2 Liters/Min Splitting Machine Tender ID Sodium 133 mmol/L L mmol /L (136-145) Potassium 4.2 mmol/L mmol/L (3.5-5.1) Chloride 99 mmol/L mmol/L (98-107) Carbon Dioxide 18 mmol/L L mmol/ L (22-29) Anion Gap 20.2 H (5-19) BUN 5 mg/dL L mg/dL (6-20) Creatinine 0.6 mg/dL mg/dL (0.5-0.9) GFR Calculation 108.6 mL/min mL/m in (90-130) Glucose 104 mg/dL mg/dL (65-115) Calculated Osmolal ity 274 mOsm/kg L mOs m/kg (285-295) Calcium 8.1 mg/dL L mg/dL (8.5-10.5) Total Bilirubin 0.2 mg/dL mg/dL (0.15-1.2) AST 18 U/L U/L (0-32) ALT 24 U/L U/L (0-33) Alkaline Phosphata se 78 IU/L IU/L (35-105) Troponin T Baselin e 6 ng/L ng/L (0-10) Troponin T 120 Min [place] Delta Troponin T Troponin T Hi Sens 6Hr Troponin T Hi Sens 6Hr Delta C-Reactive Protein 42.1 mg/L H mg/L (0.0-4.9) NT-Pro-B Natriuret Pep 139 pg/mL H pg/mL (0-125) Total Protein 6.2 g/dL L g/dL (6.6-8.7) Albumin 3.6 g/dL g/dL (3.5-5.2) Globulin 2.6 g/dL g/dL (1.3-4.6) Procalcitonin 0.05 ng/mL ng/mL (0-0.5) Nasal/Oral COVID-1 9 PCR SARS-CoV-2 Ag (Rap id) 11/08/21 11/08/21 11/08/21 01:42 01:51 03:06 WBC RBC Hgb Hct MCV MCH MCHC RDW Plt Count MPV Neut % (Auto) Lymph % (Auto) [place] % (Auto) Eos % (Auto) Baso % (Auto) Neut # (Auto) Lymph # (Auto) [place] # (Auto) Eos # (Auto) Baso # (Auto) Nucleated RBC % (a uto) Nucleated RBCs # D-Dimer Cancelled Specimen Type Sample Site ABG pH ABG pCO2 ABG pO2 ABG HCO3 ABG Base Excess Kin Test Hematocrit O2 Delivery Device O2 Liters/Min Splitting Machine Tender ID Sodium Potassium Chloride Carbon Dioxide Anion Gap BUN Creatinine GFR Calculation Glucose Calculated Osmolal ity Calcium Total Bilirubin AST ALT Alkaline Phosphata se Troponin T Baselin e Troponin T 120 Min [place] Delta Troponin T Troponin T Hi Sens 6Hr Troponin T Hi Sens 6Hr Delta C-Reactive Protein NT-Pro-B Natriuret Pep Total Protein Albumin Globulin Procalcitonin Nasal/Oral COVID-1 9 PCR Cancelled SARS-CoV-2 Ag (Rap id) Negative (Negative) 11/08/21 11/08/21 11/08/21 03:06 03:48 04:45 WBC RBC Hgb Hct MCV MCH MCHC RDW Plt Count MPV Neut % (Auto) Lymph % (Auto) [place] % (Auto) Eos % (Auto) Baso % (Auto) Neut # (Auto) Lymph # (Auto) [place] # (Auto) Eos # (Auto) Baso # (Auto) Nucleated RBC % (a uto) Nucleated RBCs # D-Dimer 1.15 ug/mIFEU H u g/mIFEU (0-0.59) Specimen Type Arterial Sample Site Radial, right ABG pH 7.50 H (7.35-7.45) ABG pCO2 30.8 mmHg L mmHg (35-45) ABG pO2 86.3 mmHg mmHg (80.0-100.0) ABG HCO3 24.0 mmol/L mmol/ L (22-26) ABG Base Excess 1.4 mmol/L mmol/L (-2.0-2.0) Kin Test Pos Hematocrit 34.9 % L % (37-47) O2 Delivery Device Nc O2 Liters/Min 2.0 % % Splitting Machine Tender ID Nicer2 Sodium Potassium Chloride Carbon Dioxide Anion Gap BUN Creatinine GFR Calculation Glucose Calculated Osmolal ity Calcium Total Bilirubin AST ALT Alkaline Phosphata se Troponin T Baselin e Troponin T 120 Min [place] 6.00 ng/L ng/L (0-10) Delta Troponin T 0 ABS# ABS# (0-10) Troponin T Hi Sens 6Hr Troponin T Hi Sens 6Hr Delta C-Reactive Protein NT-Pro-B Natriuret Pep Total Protein Albumin Globulin Procalcitonin Nasal/Oral COVID-1 9 PCR SARS-CoV-2 Ag (Rap id) 11/08/21 06:30 WBC RBC Hgb Hct MCV MCH MCHC RDW Plt Count MPV Neut % (Auto) Lymph % (Auto) [place] % (Auto) Eos % (Auto) Baso % (Auto) Neut # (Auto) Lymph # (Auto) [place] # (Auto) Eos # (Auto) Baso # (Auto) Nucleated RBC % (a uto) Nucleated RBCs # D-Dimer Specimen Type Sample Site ABG pH ABG pCO2 ABG pO2 ABG HCO3 ABG Base Excess Kin Test Hematocrit O2 Delivery Device O2 Liters/Min Splitting Machine Tender ID Sodium Potassium Chloride Carbon Dioxide Anion Gap BUN Creatinine GFR Calculation Glucose Calculated Osmolal ity Calcium Total Bilirubin AST ALT Alkaline Phosphata se Troponin T Baselin e Troponin T 120 Min [place] Delta Troponin T Troponin T Hi Sens 6Hr 6.00 ng/L ng/L (0-10) Troponin T Hi Sens 6Hr Delta 0 ng/L ng/L (0-12) C-Reactive Protein NT-Pro-B Natriuret Pep Total Protein Albumin Globulin Procalcitonin Nasal/Oral COVID-1 9 PCR SARS-CoV-2 Ag (Rap id) Discharge Plan Discharge Patient Disposition: Admitted As Inpatient Clinical Impression: Pneumonia Qualifiers: Pneumonia type: due to unspecified organism Laterality: bilateral Lung location: lower lobe of lung Qualified Code(s): J18.9 - Pneumonia, unspecified organism Condition: Stable Coding Level of Care Code ED Application Lead for Chg Fwd Exam Detailed Documented by User: Indy Nation MD 11/08/21 07:13 HPI - Chest Pain General: Chief Complaint: Chest Pain Stated Complaint: chest pain Time Seen by Provider: 11/07/21 23:51 PFSH ED PFSH: Medical History Anxiety Arthritis, midfoot Chronic pain Chronic post-traumatic stress disorder Current every day nicotine vaping Encounter for pre-bariatric surgery counseling and education Generalized anxiety disorder GERD (gastroesophageal reflux disease) Hot flashes due to menopause Leg edema Major depressive disorder, recurrent, moderate Nicotine dependence, cigarettes, uncomplicated Obesity Panic disorder without agoraphobia Plantar fasciitis, bilateral Psychiatric care Surgical History History of 3 sections 1993,1999,2002 History of dilation and curettage (~2012) History of foot surgery BILATERAL- PLANTAR FASCITIS RELEASE History of hysterectomy (~2018) History of laparoscopic cholecystectomy (~2014) History of tubal ligation (~2002) Family History Father Hypertension Heart disease Diabetes Mother Thyroid condition Diabetes Obesity Grandmother Obesity Denies family history of Anesthesia complication Bleeding disorder Social History Alcohol intake: never Flakita/Cheondoism: None Course Vital Signs: Vital signs: Vital Signs Temperature 101.0 F H 11/07/21 23:40 Pulse Rate 94 11/08/21 06:42 Respiratory Rate 20 H 11/08/21 06:42 Blood Pressure 154/86 11/08/21 06:42 Pulse Oximetry 96 11/08/21 06:42 MDM - Chest Pain MDM Narrative: Medical decision making narrative: Patient presents with pneumonia seen on CTA she is febrile requiring oxygen and failed outpatient antibiotics patient started on IV antibiotics I spoke to the hospitalist and will admit at this time. Lab Data: Labs: Lab Results 11/08/21 11/08/21 11/08/21 00:20 00:20 00:20 WBC 9.1 10^3/uL 10^3/ uL (4.0-10.0) RBC 4.39 10^6/uL 10^6 /uL (4.1-5.3) Hgb 11.4 g/dL L g/dL (11.5-15.3) Hct 35.7 % L % (37.0-47.0) MCV 81.3 fl fl (81-99) MCH 26.0 pg L pg (28.0-34.0) MCHC 31.9 g/dL g/dL (30.0-36.0) RDW 15.4 % H % (12.1-15.1) Plt Count 409 10^3/cmm H 10 ^3/cmm (130-400) MPV 9.8 fL fL (7.4-10.4) Neut % (Auto) 71.5 % % Lymph % (Auto) 22.0 % % [place] % (Auto) 5.9 % % Eos % (Auto) 0.2 % % Baso % (Auto) 0.2 % % Neut # (Auto) 6.50 10^3/uL 10^3 /uL (1.8-7.7) Lymph # (Auto) 2.0 10^3/uL 10^3/ uL (0.8-4.8) [place] # (Auto) 0.5 10^3/uL 10^3/ uL (0.2-0.9) Eos # (Auto) 0.0 10^3/uL 10^3/ uL (0.0-0.8) Baso # (Auto) 0.0 10^3/uL 10^3/ uL (0.0-0.1) Nucleated RBC % (a uto) 0 % % Nucleated RBCs # 0.0 /100WBC /100W BC D-Dimer Specimen Type Sample Site ABG pH ABG pCO2 ABG pO2 ABG HCO3 ABG Base Excess Kin Test Hematocrit O2 Delivery Device O2 Liters/Min Splitting Machine Tender ID Sodium 133 mmol/L L mmol /L (136-145) Potassium 4.2 mmol/L mmol/L (3.5-5.1) Chloride 99 mmol/L mmol/L (98-107) Carbon Dioxide 18 mmol/L L mmol/ L (22-29) Anion Gap 20.2 H (5-19) BUN 5 mg/dL L mg/dL (6-20) Creatinine 0.6 mg/dL mg/dL (0.5-0.9) GFR Calculation 108.6 mL/min mL/m in (90-130) Glucose 104 mg/dL mg/dL (65-115) Calculated Osmolal ity 274 mOsm/kg L mOs m/kg (285-295) Calcium 8.1 mg/dL L mg/dL (8.5-10.5) Total Bilirubin 0.2 mg/dL mg/dL (0.15-1.2) AST 18 U/L U/L (0-32) ALT 24 U/L U/L (0-33) Alkaline Phosphata se 78 IU/L IU/L (35-105) Troponin T Baselin e 6 ng/L ng/L (0-10) Troponin T 120 Min [place] Delta Troponin T Troponin T Hi Sens 6Hr Troponin T Hi Sens 6Hr Delta C-Reactive Protein 42.1 mg/L H mg/L (0.0-4.9) NT-Pro-B Natriuret Pep 139 pg/mL H pg/mL (0-125) Total Protein 6.2 g/dL L g/dL (6.6-8.7) Albumin 3.6 g/dL g/dL (3.5-5.2) Globulin 2.6 g/dL g/dL (1.3-4.6) Procalcitonin 0.05 ng/mL ng/mL (0-0.5) Nasal/Oral COVID-1 9 PCR SARS-CoV-2 Ag (Rap id) 11/08/21 11/08/21 11/08/21 01:42 01:51 03:06 WBC RBC Hgb Hct MCV MCH MCHC RDW Plt Count MPV Neut % (Auto) Lymph % (Auto) [place] % (Auto) Eos % (Auto) Baso % (Auto) Neut # (Auto) Lymph # (Auto) [place] # (Auto) Eos # (Auto) Baso # (Auto) Nucleated RBC % (a uto) Nucleated RBCs # D-Dimer Cancelled Specimen Type Sample Site ABG pH ABG pCO2 ABG pO2 ABG HCO3 ABG Base Excess Kin Test Hematocrit O2 Delivery Device O2 Liters/Min Splitting Machine Tender ID Sodium Potassium Chloride Carbon Dioxide Anion Gap BUN Creatinine GFR Calculation Glucose Calculated Osmolal ity Calcium Total Bilirubin AST ALT Alkaline Phosphata se Troponin T Baselin e Troponin T 120 Min [place] Delta Troponin T Troponin T Hi Sens 6Hr Troponin T Hi Sens 6Hr Delta C-Reactive Protein NT-Pro-B Natriuret Pep Total Protein Albumin Globulin Procalcitonin Nasal/Oral COVID-1 9 PCR Cancelled SARS-CoV-2 Ag (Rap id) Negative (Negative) 11/08/21 11/08/21 11/08/21 03:06 03:48 04:45 WBC RBC Hgb Hct MCV MCH MCHC RDW Plt Count MPV Neut % (Auto) Lymph % (Auto) [place] % (Auto) Eos % (Auto) Baso % (Auto) Neut # (Auto) Lymph # (Auto) [place] # (Auto) Eos # (Auto) Baso # (Auto) Nucleated RBC % (a uto) Nucleated RBCs # D-Dimer 1.15 ug/mIFEU H u g/mIFEU (0-0.59) Specimen Type Arterial Sample Site Radial, right ABG pH 7.50 H (7.35-7.45) ABG pCO2 30.8 mmHg L mmHg (35-45) ABG pO2 86.3 mmHg mmHg (80.0-100.0) ABG HCO3 24.0 mmol/L mmol/ L (22-26) ABG Base Excess 1.4 mmol/L mmol/L (-2.0-2.0) Kin Test Pos Hematocrit 34.9 % L % (37-47) O2 Delivery Device Nc O2 Liters/Min 2.0 % % Splitting Machine Tender ID Nicer2 Sodium Potassium Chloride Carbon Dioxide Anion Gap BUN Creatinine GFR Calculation Glucose Calculated Osmolal ity Calcium Total Bilirubin AST ALT Alkaline Phosphata se Troponin T Baselin e Troponin T 120 Min [place] 6.00 ng/L ng/L (0-10) Delta Troponin T 0 ABS# ABS# (0-10) Troponin T Hi Sens 6Hr Troponin T Hi Sens 6Hr Delta C-Reactive Protein NT-Pro-B Natriuret Pep Total Protein Albumin Globulin Procalcitonin Nasal/Oral COVID-1 9 PCR SARS-CoV-2 Ag (Rap id) 11/08/21 06:30 WBC RBC Hgb Hct MCV MCH MCHC RDW Plt Count MPV Neut % (Auto) Lymph % (Auto) [place] % (Auto) Eos % (Auto) Baso % (Auto) Neut # (Auto) Lymph # (Auto) [place] # (Auto) Eos # (Auto) Baso # (Auto) Nucleated RBC % (a uto) Nucleated RBCs # D-Dimer Specimen Type Sample Site ABG pH ABG pCO2 ABG pO2 ABG HCO3 ABG Base Excess Kin Test Hematocrit O2 Delivery Device O2 Liters/Min Splitting Machine Tender ID Sodium Potassium Chloride Carbon Dioxide Anion Gap BUN Creatinine GFR Calculation Glucose Calculated Osmolal ity Calcium Total Bilirubin AST ALT Alkaline Phosphata se Troponin T Baselin e Troponin T 120 Min [place] Delta Troponin T Troponin T Hi Sens 6Hr 6.00 ng/L ng/L (0-10) Troponin T Hi Sens 6Hr Delta 0 ng/L ng/L (0-12) C-Reactive Protein NT-Pro-B Natriuret Pep Total Protein Albumin Globulin Procalcitonin Nasal/Oral COVID-1 9 PCR SARS-CoV-2 Ag (Rap id) Discharge Plan Discharge Patient Disposition: Admitted As Inpatient Clinical Impression: Pneumonia Qualifiers: Pneumonia type: due to unspecified organism Laterality: bilateral Lung location: lower lobe of lung Qualified Code(s): J18.9 - Pneumonia, unspecified organism Condition: Stable Coding Level of Care Code ED Application Lead for [facility] Fwd Exam Detailed
[2021-11-08 04:25] LABS: Troponin 5 2HR Delta 0 ABS# (0-10)
[2021-11-08 04:57] LABS: ABG PCO2 30.8 mmHg (35-45); Arterial Blood Gas Hematocrit 34.9 % (37-47); Base Excess ABG 1.4 mmol/L (-2.0-2.0); Blood Gas Allen Test Pos; Blood Gas Sample Site Radial, right; Blood Gas Sample Type Arterial; Oxygen Device NC; PO2 ABG 86.3 mmHg (80.0-100.0)
--- NOTE | 2021-11-08 05:12 | CTR_ITS ---
PROCEDURE INFORMATION: Exam: CTA Chest With Contrast Exam date and time: 11/08/2021 5:12 AM Age: 46 years old Clinical indication: Shortness of breath; Additional info: SOB, elevated d dimer TECHNIQUE: Imaging protocol: Computed tomographic angiography of the chest with contrast. 3D rendering (Not supervised by radiologist): MIP and/or 3D reconstructed images were created by the technologist. Radiation optimization: All CT scans at this facility use at least one of these dose optimization techniques: automated exposure control; mA and/or kV adjustment per patient size (includes targeted exams where dose is matched to clinical indication); or iterative reconstruction. Contrast material: OMNI 350; Contrast volume: 95 ml; Contrast route: INTRAVENOUS (IV); COMPARISON: CTA Chest-Pulmonary Emb [id number] 04/24/2019 8:00 AM RADIATION DOSE METRICS: Total DLP (mGy-cm): 505.54 FINDINGS: Pulmonary arteries: No pulmonary embolism. Aorta: No aortic dissection. Lungs: There are bilateral lower lobe infiltrates, much worse on the left, consistent with pneumonia. Stable 6 mm left lower lobe pulmonary nodule. Pleural spaces: Unremarkable. No pneumothorax. No pleural effusion. Heart: Unremarkable. No cardiomegaly. No pericardial effusion. Lymph nodes: Calcified lymph nodes are present, secondary to prior granulomatous disease. Gallbladder and bile ducts: There has been a cholecystectomy. Bones/joints: Unremarkable. No acute fracture. Soft tissues: Unremarkable. CT/CT angio chest PE protcl [id number] IMPRESSION: 1. No pulmonary embolism. 2. There are bilateral lower lobe infiltrates, much worse on the left, consistent with pneumonia. 3. No aortic dissection. 4. Stable 6 mm left lower lobe pulmonary nodule. Stable pulmonary nodule(s) for which no further follow-up is recommended. (Reference: Sourav) REFERENCES: Sourav H, et al. Guidelines for Management of Incidental Pulmonary Nodules Detected on CT Images: From the Fleischner Society 2017. Radiology. 2017;284(1):228-243.
[2021-11-08] MEDS: iohexol 350 mg/mL 100 mL Btl IV (06:02)
[2021-11-08] MEDS: cefTRIAXone 1,000 MG in sodium chloride 0.9% (plus) 50 ML 100 MG IV (06:34)
--- NOTE | 2021-11-08 06:42 | ECG_ITS ---
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: : 1975 Requested By: Darell Harley Order Number: [id number] Reading MD: RIMA PARTIDA Measurements Intervals [place] Rate: 86 P: 58 [place]: 131 QRS: 61 QRSD: 88 T: 55 QT: 384 QTc: 459 Interpretive Statements SINUS RHYTHM LOW QRS VOLTAGE IN PRECORDIAL LEADS [QRS DEFLECTION < 1.0 mV IN CHEST LEADS] Compared to ECG 11/08/2021 02:40:51 Sinus tachycardia no longer present Short [place] interval no longer present Electronically Signed On 11-08-2021 19:59:28 TACTICAL INTELLIGENCE OFFICER by RIMA PARTIDA [email or web address]
[2021-11-08 07:10] LABS: Troponin 5 6HR Delta 0 ng/L (0-12)
--- NOTE | 2021-11-08 08:21 | PC.NURSE ---
Recieved report from RN, rounded on pt and assisted pt to the bedside commode, pt denies any further needs at this time.
[2021-11-08] MEDS: azithromycin 500 MG in sodium chloride 0.9% 250 ML 250 MG IV (08:30)
[2021-11-08 10:26] LABS: Iron 21 ug/dL (37-145); Percent Saturation 6.2 % (20-50); Thyroid Stimulating Hormone 0.78 uIU/mL (0.27-4.20); Total Iron Binding Capacity 336 mcg/dl; Unsaturated Iron Binding 315 ug/dL (112-347)
--- NOTE | 2021-11-08 12:25 | PM.HP ---
Providers/Chief Complaint Admitting Physician: Romeo Hawkins MD Primary Care Provider: Tatyana Bhatia DO Chief Complaint: chest pain History of Present Illness Judy Dietrich is a 46 year old female with past medical history of obstructive sleep apnea not on CPAP since April 2021, chronic smoker with cigarettes and currently vaping as well, panic disorder, asthma who came into the ER yesterday evening for difficulty in breathing which has been getting worse along with cough with expectoration for last 2 weeks. Patient patient was recently in the ER with similar complaints and was discharged home on oral doxycycline and steroids. Patient states while she was on the medicine it helped a little bit but as soon as the medicine stop sometimes got worse again hence she came to the ER. At baseline she does not require any oxygen. Currently on 3 L saturating 95%. Last night had a fever of 101 Fahrenheit. Not sure of any fever at home. Denies any nausea, vomiting, headache, dizziness, dysuria. Not vaccinated for COVID-19. States has not been exposed to COVID-19. COVID-19 PCR done on 10/28 -. Review of Systems General: Reports: 10 or more systems reviewed and unremarkable except in HPI and below Const: Denies: fever(s), chills, body aches, change in appetite, change in weight, malaise, night sweats, diaphoresis, change in sleep pattern, daytime sleepiness or snoring Eyes: Denies: change in vision, blurry vision, photophobia, eye discomfort or eye discharge ENMT: Denies: throat pain, enlarged tonsils, hoarseness, mouth pain, oral sores, dry mouth, tinnitus, nasal congestion or post nasal drip Card: Denies: chest pain, palpitations, irregular heart rhythm, edema, swelling of feet/ankles, lightheadedness, syncope, pre-syncope, dyspnea on exertion, orthopnea, leg pain with exertion or acrocyanosis Resp: Denies: dyspnea, productive cough, non-productive cough, wheezing, stridor, pain on inspiration, change in phlegm color, hemoptysis or chest congestion GI: Denies: abdominal pain, nausea, vomiting, hematemesis, coffee ground emesis, dysphagia, heartburn, diarrhea, constipation, bloating, GI cramping, change in bowel habits, pain on defecation, hematochezia or melena : Denies: flank pain, dysuria, urinary frequency, urinary urgency, urinary hesitancy, nocturia or hematuria Musc: Denies: neck pain, back pain, extremity pain, joint pain, joint swelling, joint redness, joint stiffness or limited range of motion Neuro: Denies: headache(s), numbness in extremities, weakness in extremities, sensory changes, lack of coordination, difficulty walking, frequent falls, dizziness, vertigo, confusion, Slurred speech present, difficulty communicating thoughts or seizure-like activity Psych: Denies: anxiety, depression, mood swings, panic attacks, hopelessness or irritability Endo: Denies: polyuria, polydipsia, tired all the time, cold intolerance, excessive sweating, flushing or heat intolerance Geoff/Lymph: Denies: easy bruising or easy bleeding All/Imm: Denies: tongue swelling, facial swelling or acute wheezing Medications/Allergies Home Medications Medication Instructions Recorded Confirmed Last Taken Type estradiol 1 mg tablet 1 mg PO DAILY 90 Days #90 tab 10/02/21 11/08/21 11/07/21 Rx albuterol sulfate See Rx Instructions .ROUTE 10/28/21 11/08/21 Unknown Rx .COMPLEX PRN #8.5 g [id number]-[id number] 1 applic TOPICAL BID #30 g 10/31/21 11/08/21 Unknown Rx [Triple Antibiotic] hydroxyzine pamoate 50 mg capsule 50 mg PO BID PRN #30 cap 11/02/21 11/08/21 Unknown Rx venlafaxine 150 mg 150 mg PO QAM #30 cap 11/02/21 11/08/21 11/07/21 Rx capsule,extended release 24 hr venlafaxine 75 mg capsule,extended 75 mg PO QAM #30 cap 11/02/21 11/08/21 11/07/21 Rx release 24 hr loratadine 10 mg tablet 10 mg PO DAILY 11/03/21 11/08/21 11/07/21 History naproxen 500 mg PO BID PRN 11/08/21 11/08/21 Unknown History pantoprazole [Protonix] 40 mg PO DAILY 11/08/21 11/08/21 11/07/21 History Allergies Allergy/AdvReac Type Severity Reaction Status Date / Time penicillin G Allergy Severe Unknown Verified 11/03/21 08:34 PFSH Acute PFSH: Medical History (Updated 11/08/21 @ 12:30 by Romeo Hawkins MD) Anxiety Arthritis, midfoot Chronic pain Chronic post-traumatic stress disorder Current every day nicotine vaping Elevated blood pressure reading without diagnosis of hypertension Encounter for pre-bariatric surgery counseling and education Generalized anxiety disorder GERD (gastroesophageal reflux disease) Hot flashes due to menopause Leg edema Major depressive disorder, recurrent, moderate Nicotine dependence, cigarettes, uncomplicated Obesity Panic disorder without agoraphobia Plantar fasciitis, bilateral Posterior right knee pain Postmenopausal Psychiatric care Surgical History History of 3 sections 1993,1999,2002 History of dilation and curettage (~2012) History of foot surgery BILATERAL- PLANTAR FASCITIS RELEASE History of hysterectomy (~2018) History of laparoscopic cholecystectomy (~2014) History of tubal ligation (~2002) Family History Father Hypertension Heart disease Diabetes Mother Thyroid condition Diabetes Obesity Grandmother Obesity Denies family history of Anesthesia complication Bleeding disorder Social History Alcohol intake: never Flak[place]/Catholic: None Vitals/I&O/Wt Last Vital Signs Temp 101.0 F H 11/07/21 23:40 Pulse 76 11/08/21 08:21 Resp 23 H 11/08/21 08:21 BP 134/75 11/08/21 08:21 Pulse Ox 95 11/08/21 08:21 11/07/21 11/08/21 11/08/21 22:59 06:59 14:59 Intake Total 300 / 300 Balance 300 / 300 Weight last 48 hrs Weight 127.006 kg Physical Exam Narrative: EXAM NARRATIVE: General: No acute distress, AO x3 HEENT: PERRLA, pupils bilaterally equal and reactive Chest: Normal vesicular breath sounds, rhonchi and coarse crackles present in left middle zone, equal good air entry bilaterally CVS: S1-S2 regular, no murmurs, no tachycardia, no gallops, no rubs Abdomen: Soft, nontender, no organomegaly, bowel sounds present Neuro: No focal deficits, no facial deformity, AO x3, power 5/5 in all limbs Data : 11/08/21 00:20 11/08/21 00:20 Micro: Microbiology 11/08/21 03:06 Blood Culture - Preliminary Blood SPECIMEN COLLECTED 11/08/21 03:06 Blood Culture - Preliminary Blood SPECIMEN COLLECTED A&P Assessment and plan (1) Pneumonia: Status: Acute Qualifiers: Laterality: bilateral Lung location: lower lobe of lung Pneumonia type: due to unspecified organism Qualified Code(s): J18.9 - Pneumonia, unspecified organism (2) COPD exacerbation: Status: Acute (3) Obstructive sleep apnea: Status: Acute (4) Morbid obesity with BMI of 50.0-59.9, adult: Status: Acute (5) Nicotine dependence, cigarettes, uncomplicated: Status: Chronic (6) Current every day nicotine vaping: Status: Chronic (7) Failure of outpatient treatment: Status: Acute Additional A&P Information Hypoxia secondary to COPD exacerbation in setting of pneumonia and possible bronchitis: History of obstructive sleep apnea not on CPAP. Oxygen supplementation keeping saturation over 92%. Start on treatment for community-acquired pneumonia with oral azithromycin and IV ceftriaxone. CTA negative for pulmonary embolism. Consolidation noted. DuoNebs every 6 hour, budesonide twice daily. Solu-Medrol 40 mg every 6 hourly. Will wean accordingly. Check urine Legionella, bacterial antigen, sputum culture, urinalysis, procalcitonin, blood culture. Will de-escalate antibiotics as per culture results. Continue other chronic medications. Discussed in detail for patient to try avoiding smoking and vaping going forward. Full code. Regular diet. Famotidine for PUD prophylaxis. Lovenox for DVT prophylaxis. Attestations Medical Necessity Statement*: Admission for more than 2 midnights for hypoxia secondary COPD exacerbation in setting of pneumonia with failure of outpatient treatment Time Spent in Patient Care: Greater than 35 minutes (>than 50% of time spent in counselling and/or direct pt care on unit). 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
--- NOTE | 2021-11-08 13:59 | PC.NURSE ---
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 ED physician notified and orders received.
--- NOTE | 2021-11-08 14:04 | PC.NURSE ---
Pt requesting regular food, pts son is at bedside, would like to leave and get food for pt and come back in. Pt and family advised of the visitation policy
[2021-11-08] MEDS: enoxaparin 40 mg/0.4 mL Syringe SUBCUT (15:15)
[2021-11-08] MEDS: estradiol 1 mg Tablet PO (15:16)
[2021-11-08] MEDS: pantoprazole DR 40 mg Tablet PO (15:16)
[2021-11-08] MEDS: venlafaxine ER (24HR) 75 mg Capsule 225 MG PO (17:40)
[2021-11-09] VITALS (12 sets, daily range): BP systolic 93–135; BP diastolic 60–77; PULSE 73–122; RESP 16–20; TEMP 36.4–36.8; O2SAT 94–98
[2021-11-09] MEDS: hyDROXYzine 25 mg Capsule 50 MG PO (01:12)
[2021-11-09 05:42] LABS: Basophils % 0.1 %; Hemoglobin 11.6 g/dL (11.5-15.3); Lymphocytes # 1.3 10^3/uL (0.8-4.8); Lymphocytes % 15.6 %; Mean Corpuscular HGB Conc 32.2 g/dL (30.0-36.0); Mean Corpuscular Hemoglobin 26.3 pg (28.0-34.0); Mean Corpuscular Volume 81.6 fl (81-99); Mean Platelet Volume 9.3 fL (7.4-10.4); Monocytes # 0.4 10^3/uL (0.2-0.9); Monocytes % 4.7 %; Neutrophils # 6.74 10^3/uL (1.8-7.7); Neutrophils % 78.7 %; Nucleated Red Blood Cells % 0 %; Platelet Count 383 10^3/cmm (130-400); Red Blood Count 4.41 10^6/uL (4.1-5.3); Red Cell Distribution Width 15.2 % (12.1-15.1); White Blood Count 8.6 10^3/uL (4.0-10.0)
[2021-11-09] MEDS: venlafaxine ER (24HR) 75 mg Capsule PO (05:57)
[2021-11-09] MEDS: cefTRIAXone 1,000 MG in sodium chloride 0.9% (plus) 50 ML 100 MG IV (05:59)
[2021-11-09 06:00] LABS: Alanine Aminotransferase 19 U/L (0-33); Albumin Level 3.7 g/dL (3.5-5.2); Alkaline Phosphatase 73 IU/L (35-105); Anion Gap 18.6 (5-19); Aspartate Amino Transferase 14 U/L (0-32); Blood Urea Nitrogen 9 mg/dL (6-20); Calcium 8.6 mg/dL (8.5-10.5); Carbon Dioxide 21 mmol/L (22-29); Chloride 103 mmol/L (98-107); Globulin 2.7 g/dL (1.3-4.6); Glucose 144 mg/dL (65-115); Osmolality Calculated 287 mOsm/kg (285-295); Potassium 4.6 mmol/L (3.5-5.1); Sodium 138 mmol/L (136-145); Total Bilirubin 0.2 mg/dL (0.15-1.2); Total Protein 6.4 g/dL (6.6-8.7)
[2021-11-09 06:05] LABS: Estmated Average Glucose 143; Hemoglobin A1C 6.6 % (4.0-6.0)
[2021-11-09 06:07] LABS: Chol HDL Ratio 3.07 mg/dL (0.0-4.40); Cholesterol 252 mg/dL (0-200); HDL Cholesterol 82 mg/dL (60-100); LDL Cholesterol Calculated 151 mg/dL (50-129); Triglycerides 93 mg/dL (0-150); VLDL Cholestrol Calculation 19 mg/dL (0-30)
[2021-11-09] MEDS: pantoprazole DR 40 mg Tablet PO (07:45)
[2021-11-09] MEDS: azithromycin 250 mg Tablet 500 MG PO (07:46)
[2021-11-09] MEDS: ferrous gluconate 324 mg Tablet PO ×2 (07:46→17:31)
--- NOTE | 2021-11-09 09:31 | PC.CHAP ---
Pastoral Care Encounter/Spiritual Assessment Type of Contact [] Declined wheel worker visit [] Patient/Family/Request visit [] Outpatient visit [] Follow-up visit [] Physician referral [] Code/Alert [x] Routine visit [] Staff referral [] Actively dying [] Patient sleeping [] Family support [] [] Out of room [] Palliative care [] [] Receiving care in room [] Pre-surgical visit [] Trauma [] Long length of stay [] ICU visit [] Other: Relational/Emotional Strength [x] Patient feels connected with others/family/visitors/staff [] Distress [] Loneliness/isolation [] Abandonment Spirituality of Patient [x] Person of Flakita [x] Attends Church of their Flak[place] [x] Believes in Prayer [] Reads Bible or Amish materials [] There are Spiritual issues to be addressed Maintenance Helper Interventions [x] Prayer [x] Active listening [x] Non-anxious presence [] Spiritual/emotional support [] Crisis/trauma care [] Spiritual counseling [] Bereavement support [] Provided bereavement packet [] Provided Bible/devotional materials [] Provided toy/stuffed animal, coloring book to patient or family member [] Provided Communion [] Anointing/[place] [] Salvation [x] Completed spiritual assessment [] Other: Impact on Illness or Injury [] Angry [] Fearful [] Anxious [] Often cries [] Exhaustion [] Unable to work [] Unable to attend sikh [] Unable to walk/stand [] Unable to read [] Unable to drive [] Unable to eat/drink [] Unable to sleep [] Unable to be with family [] Patient intubated [] Other: Summary 5 min Time spent with patient
--- NOTE | 2021-11-09 09:47 | PM.PN ---
Subjective Subjective: Interval history: Judy believes she is a little bit better today. Still coughing. No chest pain. Reports no feelings of chills or fever through the night. History and physical reviewed. Medications: Reviewed: Yes Vitals/I&O/Wt Last Vital Signs Temp 97.9 F 11/09/21 07:37 Pulse 73 11/09/21 07:37 Resp 16 11/09/21 07:37 BP 113/74 11/09/21 07:37 Pulse Ox 97 11/09/21 07:37 11/08/21 11/09/21 11/09/21 22:59 06:59 14:59 Intake Total 240 / 540 50 / 590 Balance 240 / 540 50 / 590 Weight last 48 hrs Weight 134.127 kg Weight 127.006 kg Weight 127.006 kg Physical Exam Narrative: EXAM NARRATIVE: General exam is a white female, conversant, in no distress on oxygen Neck is supple Cardiovascular regular rate and rhythm without murmur Lungs bilateral coarse rhonchi, with bilateral expiratory wheezes. Abdomen is soft obese nontender with positive bowel sounds Extremities no cyanosis clubbing or edema, cap refill brisk. Data : 11/09/21 05:23 11/09/21 05:23 Micro: Microbiology 11/08/21 03:06 Blood Culture - Preliminary Blood NEGATIVE TO DATE 11/08/21 03:06 Blood Culture - Preliminary Blood NEGATIVE TO DATE Other data: Blood cultures negative to date A&P Assessment and plan (1) Pneumonia: Pneumonia was found on CT, present on admission No pulmonary embolism was noted Continue Rocephin and azithromycin for community-acquired pneumonia Await sputum culture, Legionella antigen, bacterial antigen panel Await Covid PCR Overall patient appears to be improving Add incentive spirometry Wean oxygen as tolerated Status: Acute Qualifiers: Laterality: bilateral Lung location: lower lobe of lung Pneumonia type: due to unspecified organism Qualified Code(s): J18.9 - Pneumonia, unspecified organism (2) COPD exacerbation: Continue Solu-Medrol Reduce dosing interval to every 12 hours Continue pulmonary toilet, inhaled steroid. Change dosing interval for albuterol and Atrovent every 4 hours. Status: Acute (3) Obstructive sleep apnea: Status: Acute (4) Morbid obesity with BMI of 50.0-59.9, adult: Status: Acute (5) Nicotine dependence, cigarettes, uncomplicated: Encourage abstinence Status: Chronic (6) Current every day nicotine vaping: Encourage abstinence Status: Chronic (7) Failure of outpatient treatment: Status: Acute Additional A&P Information Depression, continue current medications Full code Lovenox for DVT prophylaxis Attestations Medical Necessity Statement*: Needs continued hospitalization for IV antibiotics secondary to community-acquired pneumonia, still requiring 3 L of oxygen. 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
[2021-11-09] MEDS: budesonide 0.5 mg/2 mL Neb INHALATION ×2 (11:49→20:34)
[2021-11-09] MEDS: ipratropium-albuterol 3 mL Neb INHALATION ×3 (11:49→20:36)
[2021-11-09] MEDS: enoxaparin 40 mg/0.4 mL Syringe SUBCUT (15:16)
--- NOTE | 2021-11-09 16:06 | PC.NURSE ---
Patient's COVIID test was sent to [facility] yesterday and has not been resulted yet.
[2021-11-09] MEDS: estradiol 1 mg Tablet PO (17:31)
[2021-11-09] MEDS: venlafaxine ER (24HR) 150 mg Capsule PO (17:31)
[2021-11-09 19:02] LABS: Quest SARS-CoV-2 RNA NOT DETECTED (NOT DETECTED)
--- NOTE | 2021-11-09 19:28 | PC.NURSE ---
Report to Tran [facility] at this time.
[2021-11-10] VITALS (11 sets, daily range): BP systolic 128–144; BP diastolic 81–89; PULSE 86–132; RESP 16–28; TEMP 36.4–36.9; O2SAT 94–98
[2021-11-10] MEDS: acetaminophen 325 mg Tablet 650 MG PO ×2 (00:04→08:11)
[2021-11-10] MEDS: hyDROXYzine 25 mg Capsule 50 MG PO (00:04)
[2021-11-10] MEDS: ipratropium-albuterol 3 mL Neb INHALATION ×4 (00:09→11:40)
[2021-11-10] MEDS: venlafaxine ER (24HR) 150 mg Capsule PO (05:36)
[2021-11-10] MEDS: cefTRIAXone 1,000 MG in sodium chloride 0.9% (plus) 50 ML 100 MG IV (05:36)
[2021-11-10] MEDS: guaiFENesin-codeine UDC 10 mL 5 ML PO (05:36)
[2021-11-10] MEDS: venlafaxine ER (24HR) 75 mg Capsule PO (05:36)
[2021-11-10] MEDS: budesonide 0.5 mg/2 mL Neb INHALATION (07:38)
[2021-11-10] MEDS: estradiol 1 mg Tablet PO (08:04)
[2021-11-10] MEDS: azithromycin 250 mg Tablet 500 MG PO (08:04)
[2021-11-10] MEDS: pantoprazole DR 40 mg Tablet PO (08:04)
[2021-11-10] MEDS: ferrous gluconate 324 mg Tablet PO (08:04)
--- NOTE | 2021-11-10 11:59 | PC.NURSE ---
pulse and pulse ox taken while pt is up to bathroom
[2021-11-10] MEDS: lanolin oint 7 gm 1 APPLIC TOPICAL (12:13)
[2021-11-10] MEDS: enoxaparin 40 mg/0.4 mL Syringe SUBCUT (13:06)
--- NOTE | 2021-11-10 14:17 | P.DS_ITS ---
Discharge Providers Date of Admission: 11/08/21 07:10 Date of Discharge: November 10, 2021 Attending Provider at Admission: Romeo Hawkins MD Attending Provider at Discharge: Rohit Menon MD Primary Care Provider: Tatyana Bhatia DO Diagnoses at Discharge Discharge Diagnosis (1) Pneumonia: Status: Acute Qualifiers: Laterality: bilateral Lung location: lower lobe of lung Pneumonia type: due to unspecified organism Qualified Code(s): J18.9 - Pneumonia, unspecified organism (2) COPD exacerbation: Status: Acute (3) Obstructive sleep apnea: Status: Acute (4) Morbid obesity with BMI of 50.0-59.9, adult: Status: Acute (5) Nicotine dependence, cigarettes, uncomplicated: Status: Chronic (6) Current every day nicotine vaping: Status: Chronic (7) Failure of outpatient treatment: Status: Acute Reason for Visit Reason for Visit: chest pain Hospital Course Hospital Course Patient is a 46-year-old white female who presents to the hospital with wheezing and shortness of breath. She smokes tobacco, as well as vapes[facility], 3 L. She was actively wheezing. This was all consistent with an acute COPD exacerbation and pneumonia. CTA was performed, demonstrating no pulmonary embolism but consolidation was noted. She was placed on IV steroids, pulmonary toilet, inhaled steroids, and IV antibiotics consisting of Rocephin and azithromycin. With this treatment she had gradual improvement. On November 10 she was wheezing less. She was able to be weaned off oxygen. She was feeling much better and able to ambulate to and from the bathroom without oxygen. Heart rate(sinus rhythm) increased as expected with exertion but dropped below 100 quickly with rest. MRSA, bacterial antigens all negative. Sputum culture was growing normal ten. Blood culture was negative to date. It was thought she could continue to rehabilitate at home with completing a steroid course, antibiotics, continued medications for COPD exacerbation, and close follow-up. She was encouraged not to smoke, and not to vape. Consideration given to repeat chest x-ray in 3 weeks for follow-up. She gives history of significant wheezing for years and might benefit from pulmonary consultation as well. Physical Exam Narrative: EXAM NARRATIVE: General exam no distress Neck is supple Cardiovascular regular rate and rhythm Lungs no wheezing. No crackles. Improved aeration. Abdomen is soft obese nontender Extremities no cyanosis clubbing or edema Discharge Data Data Completed and Pending: Completed Studies During Hospitalization Category Date Time Status CT angio chest PE protcl [id number] Urge nt Cat Scan 11/08/21 05:12 Completed XR chest 1V josh ble [id number] Stat Exams 11/08/21 00:42 Completed Pending at discharge Category Date Time Status Blood Culture Sta t Lab 11/08/21 03:06 Results Legionella Antige n STAT Routine Lab 11/08/21 09:28 Ordered Sputum Culture an d Gram Stain Stat Lab 11/09/21 06:48 Results Urinalysis Routin e Lab 11/08/21 09:28 Ordered Labs from last 24 hours 11/08/21 01:51 SARS-CoV-2 RNA (RT -PCR) Not detected Vitals: Last Vital Signs Temp 97.6 F 11/10/21 11:49 Pulse 132 H 11/10/21 11:59 Resp 28 H 11/10/21 11:49 BP 144/89 11/10/21 11:49 Pulse Ox 96 11/10/21 11:59 Discharge Plan Discharge Patient Disposition: Home Condition: Stable Prescriptions: New cefdinir 300 mg capsule 300 mg PO BID 57 Days Qty: 14 RF: 0 Trelegy Ellipta 200-62.5-25 mcg blister with device 1 inh inhalation Q24H Qty: 28 RF: 0 prednisone 20 mg tablet 40 mg PO DAILY 5 Days Qty: 10 RF: 0 Continued venlafaxine [Effexor XR] 150 mg capsule,extended release 24hr 150 mg PO QAM Qty: 30 RF: 6 venlafaxine [Effexor XR] 75 mg capsule,extended release 24hr 75 mg PO QAM Qty: 30 RF: 6 hydroxyzine pamoate 50 mg capsule 50 mg PO BID PRN (Reason: anxiety) Qty: 30 RF: 3 loratadine [Claritin] 10 mg tablet 10 mg PO DAILY RF: 0 estradiol 1 mg tablet 1 mg PO DAILY 90 Days Qty: 90 RF: 0 albuterol sulfate 90 mcg/actuation HFA aerosol inhaler See Rx Instructions .ROUTE .COMPLEX PRN (Reason: shortness of breath or wheezing) Qty: 8.5 RF: 2 Protonix 40 mg tablet,delayed release (DR/EC) 40 mg PO DAILY RF: 0 Triple Antibiotic 3.5mg-400 unit- 5,000 unit/gram ointment 1 applic topical BID Qty: 30 RF: 0 Discontinued naproxen 500 mg tablet 500 mg PO BID PRN (Reason: Pain) RF: 0 Discharge Orders: Discharge Order (Routine); Ordered 11/10/21 Ordered By: Rohit Menon Referrals: Tatyana Bhatia DO [Primary Care Provider] - 4-7 days Discharge Diet: Regular Discharge Activity: Increase activity as tolerated Patient Instructions: Opioid Safety Activity Restrictions/Additional Instructions: Please make sure patient spacer for her albuterol inhaler at discharge No smoking, no vaping Take all medicine as prescribed Keep follow-up with your primary care provider next week Consider follow-up chest x-ray, for resolution of pneumonia, in 3 weeks Discharge Attestations Time Spent in Discharge Care*: greater than 30 min Quality Metrics Clinical Quality Measures During this hospital stay, did patient experience: None Coding Level of Care Code Acute Chg FW DC note Diagnoses Pneumonia J18.9 Laterality: bilateral Lung location: lower lobe of lung Pneumonia type: due to unspecified organism COPD exacerbation J44.1 Obstructive sleep apnea G47.33 Morbid obesity with BMI of 50.0-59.9, adult E66.01; Z68.43 Nicotine dependence, cigarettes, uncomplicated F17.210 Current every day nicotine vaping Z72.0 Failure of outpatient treatment Z78.9
--- NOTE | 2021-11-10 16:00 | PC.NURSE ---
DISCHARGE PAPERWORK GONE OVER WITH PT. ALL QUESTIONS ANSWERED. IV REMOVED. PT TOLERATED WELL. CATHETER TIP INTACT. PT SAFELY WHEELED OUT BY THIS NURSE.
--- NOTE | 2021-11-10 16:58 | PC.NURSE ---
TRELEGY WAS NOT COVERED BY PATIENT'S INSURANCE. DR. ANDERSEN NOTIFIED. ORDER FOR ADVAIR CALLED INTO [facility] BY THIS NURSE IN PLACE OF THE [place]. PATIENT NOTIFIED.
== END 2021-11-10 16:03 | disposition home or self-care (01) | DRG 194 ==
LOC: ER 11-08 07:11 → ER IP 11-08 10:26 → MEDSURG 11-08 17:58
PROVIDERS: Emergency Medicine; Admitting Provider Student in an Organized Health Care Education/Training Program; Emergency Provider Emergency Medicine; PCP Family Medicine; Visit Provider Internal Medicine
DX: J18.9 Pneumonia, unspecified organism (principal); J44.0 Chronic obstructive pulmonary disease with (acute) lower respiratory infection; J44.1 Chronic obstructive pulmonary disease with (acute) exacerbation; F33.9 Major depressive disorder, recurrent, unspecified; Z68.43 Body mass index [BMI] 50.0-59.9, adult; F41.1 Generalized anxiety disorder; G89.29 Other chronic pain; F43.12 Post-traumatic stress disorder, chronic; F17.290 Nicotine dependence, other tobacco product, uncomplicated; K21.9 Gastro-esophageal reflux disease without esophagitis; E66.01 Morbid (severe) obesity due to excess calories; F41.0 Panic disorder [episodic paroxysmal anxiety]; G47.33 Obstructive sleep apnea (adult) (pediatric); Z99.89 Dependence on other enabling machines and devices; Z79.818 Long term (current) use of other agents affecting estrogen receptors and estrogen levels; Z79.51 Long term (current) use of inhaled steroids
CPT/HCPCS: 36415; 71045; 71275; 80053; 80061; 82803; 83036; 83540; 83550; 83880; 84145; 84443; 84484; 85025; 85378; 86140; 86403; 87040; 87070; 87205; 87426; 87635; 87641; 93005; 94640; 94664; 96365; 96367; 96372; 96375; 99285; J0456; J0696; J1650; J2920; J2930; J7050; J7626; J8499; Q0144; Q9967

== ENCOUNTER → 2021-12-07 08:03 | Outpatient (BNVA) | payer MEDICAID, SELFPAY | PROVIDERS: PCP Family Medicine; Visit Provider Nurse Practitioner Psychiatric/Mental Health | DX: F33.1 Major depressive disorder, recurrent, moderate (principal); F41.1 Generalized anxiety disorder; F43.12 Post-traumatic stress disorder, chronic; F17.210 Nicotine dependence, cigarettes, uncomplicated; F41.0 Panic disorder [episodic paroxysmal anxiety] | CPT/HCPCS: 99214 ==

== ENCOUNTER → 2021-12-15 12:41 | Outpatient (BNVA) | payer OTHER, SELFPAY | PROVIDERS: PCP Family Medicine; Visit Provider Counselor Professional | DX: F33.1 Major depressive disorder, recurrent, moderate (principal); F17.210 Nicotine dependence, cigarettes, uncomplicated; F41.0 Panic disorder [episodic paroxysmal anxiety]; F41.1 Generalized anxiety disorder; F43.12 Post-traumatic stress disorder, chronic; Z63.4 Disappearance and death of family member | CPT/HCPCS: 90834 ==

== ENCOUNTER → 2021-12-20 15:21 | Outpatient (BNVA) | payer MEDICAID, SELFPAY | PROVIDERS: PCP Family Medicine; Visit Provider Nurse Practitioner | DX: R50.9 Fever, unspecified (principal); R09.81 Nasal congestion; F17.290 Nicotine dependence, other tobacco product, uncomplicated; Z20.822 Contact with and (suspected) exposure to COVID-19 | CPT/HCPCS: 87635 ==

== ENCOUNTER 2022-02-01 18:39 | Outpatient (CLI) | payer MEDICAID, SELFPAY ==
--- NOTE | 2022-02-01 20:07 | XR_ITS ---
WS: [id number] XR lumbar spine 2-3V* [id number] REASON FOR EXAM: pain after fall FINDINGS: Mild rotatory scoliosis of the lumbar spine convex right. No vertebral body abnormality. Intervertebral disc spaces are relatively well-preserved. No spondylolysis or significant spondylolisthesis. Mild degenerative changes in the facet joints at L4-L5 and L5-S1. XR/XR lumbar spine 2-3V* [id number] IMPRESSION: Mild changes of degenerative spondylosis as above.
--- NOTE | 2022-02-01 20:07 | XR_ITS ---
WS: [id number] XR shoulder LT min 2V* [id number] REASON FOR EXAM: pain after fall FINDINGS: No fracture or other focal bone lesion. Mild superior displacement of the distal left clavicle in relation to the acromial process at the acr omioclavicular joint. The gated glenohumeral joint is intact and relatively well-preserved. XR/XR shoulder LT min 2V* [id number] IMPRESSION: Probable grade 2 left AC separation.
--- NOTE | 2022-02-01 20:07 | XR_ITS ---
WS: [id number] Left hand, 3 views, 02/01/2022 Clinical Data: pain after fall Comparison: Left hand, 01/18/2013. Findings: No fractures or dislocations are seen. The soft tissues are unremarkable. The joint spaces are normal XR/XR hand LT min 3V* [id number] Impression: Negative left hand.
--- NOTE | 2022-02-01 20:07 | XR_ITS ---
WS: [email or web address] XR cervical spine 3V* [id number] REASON FOR EXAM: pain after fall FINDINGS: The cervical spine is unchanged compared to 09/11/2019. Normal vertebral bodies and odontoid. Slight straightening of the normal lordosis of the cervical spine. There is mild narrowing of the intervertebral disc spaces C5-C6 and C6-C7. 1 to 2 mm of anterolisthes is of C5 on C6 and 2 mm of anterolisthesis of C3 on C4. Facet joints show normal alignment. XR/XR cervical spine 3V* [id number] IMPRESSION: No acute abnormality. Mild changes of degenerative spondylosis.
== END 2022-02-01 18:40 | disposition home or self-care (01) ==
LOC: RAD 18:44
PROVIDERS: PCP Family Medicine; Visit Provider Nurse Practitioner
DX: M25.512 Pain in left shoulder (principal); M54.2 Cervicalgia; M54.9 Dorsalgia, unspecified; M79.642 Pain in left hand; M47.896 Other spondylosis, lumbar region; M47.892 Other spondylosis, cervical region
CPT/HCPCS: 72040; 72100; 73030; 73130

== ENCOUNTER → 2022-02-12 07:37 | Outpatient (BNVA) | payer MEDICAID, SELFPAY | PROVIDERS: PCP Family Medicine; Visit Provider Nurse Practitioner Psychiatric/Mental Health | DX: F33.1 Major depressive disorder, recurrent, moderate (principal); F41.0 Panic disorder [episodic paroxysmal anxiety]; F17.210 Nicotine dependence, cigarettes, uncomplicated; F41.1 Generalized anxiety disorder; F43.12 Post-traumatic stress disorder, chronic | CPT/HCPCS: 99214 ==

== ENCOUNTER 2022-04-01 19:43 | Emergency (ER) | payer MEDICAID, SELFPAY ==
[2022-04-01 20:31] VITALS: BP 150/62; PULSE 102; RESP 18; TEMP 36.9; O2SAT 98; BMI 56.7
--- NOTE | 2022-04-01 20:49 | XRR_ITS ---
PROCEDURE INFORMATION: Exam: XR Left Knee Exam date and time: 04/01/2022 9:02 PM Age: 47 years old Clinical indication: Pain; Knee; Left; Additional info: Injury TECHNIQUE: Imaging protocol: XR Left knee. Views: 3 views. COMPARISON: No relevant prior studies available. FINDINGS: Bones/joints: Normal. Soft tissues: Normal. XR/XR knee LT 3V* [id number] IMPRESSION: No acute findings.
--- NOTE | 2022-04-01 20:52 | ED_ITS ---
HPI - Extremity Problem General: Chief complaint: Extremity Injury, Lower Stated complaint: Left leg injury Time Seen by Provider: 04/01/22 20:49 Source: patient Mode of arrival: ambulatory Limitations: no limitations History of Present Illness: 47-year-old female who states that on Tuesday she fell and hit her knee on a rock states she has had an enlarging contusion to the area and pain. She is able ambulate states she has pain with ambulation. States pain currently is a 5 out of 10 states she would make sure she did not have a fracture. Associated symptoms: Deny chest pain, fever(s) or rash Review of Systems Const: Denies: fever(s), chills, body aches or change in appetite Eyes: Denies: blurry vision or eye discomfort ENMT: Denies: throat pain or dental pain Card: Denies: chest pain Resp: Denies: dyspnea GI: Denies: abdominal pain, nausea, vomiting or diarrhea : Denies: dysuria Musc: Reports: extremity pain Skin/Breast: Denies: rash Neuro: Denies: headache(s) Psych: Denies: depression Geoff/Lymph: Denies: easy bruising All/Imm: Denies: urticaria PFSH ED PFSH: Medical History Anxiety Arthritis, midfoot Chronic pain Chronic post-traumatic stress disorder Current every day nicotine vaping Elevated blood pressure reading without diagnosis of hypertension Encounter for pre-bariatric surgery counseling and education Generalized anxiety disorder GERD (gastroesophageal reflux disease) Hot flashes due to menopause Leg edema Major depressive disorder, recurrent, moderate Nicotine dependence, cigarettes, uncomplicated Obesity Panic disorder without agoraphobia Plantar fasciitis, bilateral Posterior right knee pain Postmenopausal Psychiatric care Surgical History History of 3 sections 1993,1999,2002 History of dilation and curettage (~2012) History of foot surgery BILATERAL- PLANTAR FASCITIS RELEASE History of hysterectomy (~2018) History of laparoscopic cholecystectomy (~2014) History of tubal ligation (~2002) Family History Father Hypertension Heart disease Diabetes Mother Thyroid condition Diabetes Obesity Grandmother Obesity Denies family history of Anesthesia complication Bleeding disorder Social History Smoking and tobacco status: current every day smoker cigarettes Packs smoked per day: 0.75 Years cigarettes smoked: 25 and e-cigarettes E-Cigarette Details: vaporizer device Alcohol intake: never Flakita/Baptism: None Physical Exam Const: COMMON NORMALS: no acute distress, patient oriented x3 and healthy appearing HENMT: COMMON NORMALS: normocephalic and atraumatic HEAD & SCALP: normocephalic and atraumatic Eye: COMMON NORMALS: Equal, round and reactive pupils present and EOMs intact bilaterally PUPIL: Yes Equal, round and reactive pupils present Neck/C-Spine: COMMON NORMALS: full ROM and supple Chest: COMMONS NORMALS: normal inspection of the chest Resp: COMMON NORMALS: normal respiratory effort and No use of accessory muscles Cardio: COMMON NORMALS: regular rate and No murmurs present (Cardio) RATE: regular rate GI: INSPECTION: Yes normal to inspection Extremity: COMMON NORMALS: full ROM NARRATIVE EXTREMITY EXAM: Contusion over left lower knee some slight swelling tenderness to touch full range of motion patient able ambulate distal pulses sensation intact Neuro: COMMON NORMALS: patient oriented x3, moves all extremities and no focal motor deficits Psych: COMMON NORMALS: mental status grossly normal, Normal thought process present and cooperative THOUGHT PROCESS: Normal thought process present Skin: COMMON NORMALS: no rashes or lesions noted and no wounds GENERAL SKIN EXAM: no rashes or lesions noted Course Vital Signs: Vital signs: Vital Signs Temperature 98.5 F 04/01/22 20:31 Pulse Rate 102 H 04/01/22 20:31 Respiratory Rate 18 04/01/22 20:31 Blood Pressure 150/62 04/01/22 20:31 Pulse Oximetry 98 04/01/22 20:31 MDM - Extremity (Nontraumatic) Medical Decision Making Patient presents with a knee contusion from a fall she is well-appearing here stable for discharge will Robert wrap placed on Naprosyn follow-up with PCP no signs of fracture able to ambulate without any problems Discharge Plan Discharge Patient Disposition: Home Clinical Impression: Contusion of knee, left Qualifiers: Encounter type: initial encounter Qualified Code(s): S80.02XA - Contusion of left knee, initial encounter Condition: Stable Prescriptions: New Naprosyn 500 mg tablet 500 mg PO BID PRN (Reason: pain) Qty: 20 0RF No Action fluticasone propion-salmeterol [Advair Diskus] 250-50 mcg/dose blister with device 1 inh inhalation BID Qty: 60 3RF albuterol sulfate 90 mcg/actuation HFA aerosol inhaler 2 puff inhalation Q6H PRN (Reason: shortness of breath or wheezing) Qty: 8.5 2RF venlafaxine [Effexor XR] 75 mg capsule,extended release 24hr 75 mg PO QAM Qty: 30 6RF Rx Instructions: Take one capsule every morning venlafaxine [Effexor XR] 150 mg capsule,extended release 24hr 150 mg PO QAM Qty: 30 6RF Rx Instructions: Take one capsule every morning hydroxyzine pamoate 50 mg capsule 50 mg PO BID PRN (Reason: anxiety) Qty: 30 3RF Rx Instructions: Take one capsule twice per day as needed for anxiety naproxen 500 mg tablet 500 mg PO DAILY PRN0RF Protonix 40 mg tablet,delayed release (DR/EC) 40 mg PO DAILY Qty: 90 0RF Rx Instructions: Take one tablet every morning estradiol 1 mg tablet 1 mg PO DAILY 90 Days Qty: 90 0RF Triple Antibiotic 3.5mg-400 unit- 5,000 unit/gram ointment 1 applic topical BID Qty: 30 0RF Discharge Orders: Discharge ED (Routine); Ordered 04/01/22 Ordered By: [employer] Referrals: Tatyana Bhatia DO [Primary Care Provider] - 1-3 days Discharge Diet: Advance as tolerated Discharge Activity: Resume usual activity Patient Instructions: Contusion in Adults (ED) Coding Level of Care Code ED Secretary Administrative Assistant for Camille Fwd Exam Comprehensive
[2022-04-01] MEDS: HYDROcodone-acetaminophen 5-325 mg Tablet 1 TAB PO (21:00)
[2022-04-01 21:46] VITALS: BP 158/92; PULSE 88; RESP 18; O2SAT 98
== END 2022-04-01 21:50 | disposition home or self-care (01) ==
PROVIDERS: Emergency Provider Emergency Medicine; PCP Family Medicine
DX: S80.02XA Contusion of left knee, initial encounter (principal); W01.198A Fall on same level from slipping, tripping and stumbling with subsequent striking against other object, initial encounter
CPT/HCPCS: 73562; 99283

== ENCOUNTER → 2022-04-09 07:23 | Outpatient (BNVA) | payer MEDICAID, SELFPAY | PROVIDERS: PCP Family Medicine; Visit Provider Nurse Practitioner Psychiatric/Mental Health | DX: F33.1 Major depressive disorder, recurrent, moderate (principal); F41.1 Generalized anxiety disorder; F43.12 Post-traumatic stress disorder, chronic; F17.210 Nicotine dependence, cigarettes, uncomplicated; Z72.0 Tobacco use; F60.3 Borderline personality disorder | CPT/HCPCS: 99214 ==

== ENCOUNTER 2022-09-10 14:50 | Outpatient (CLI) | payer MEDICAID, SELFPAY ==
[2022-09-10 15:18] LABS: Basophils % 0.3 %; Eosinophils # 0.1 10^3/uL (0.0-0.8); Eosinophils % 1.4 %; Hematocrit 34.4 % (37.0-47.0); Hemoglobin 11.1 g/dL (11.5-15.3); Lymphocytes # 3.6 10^3/uL (0.8-4.8); Lymphocytes % 37.7 %; Mean Corpuscular HGB Conc 32.3 g/dL (30.0-36.0); Mean Corpuscular Hemoglobin 25.3 pg (28.0-34.0); Mean Corpuscular Volume 78.5 fl (81-99); Mean Platelet Volume 9.6 fL (7.4-10.4); Monocytes # 0.7 10^3/uL (0.2-0.9); Monocytes % 7.1 %; Neutrophils % 53.3 %; Nucleated Red Blood Cells % 0 %; Platelet Count 477 10^3/cmm (130-400); Red Blood Count 4.38 10^6/uL (4.1-5.3); White Blood Count 9.6 10^3/uL (4.0-10.0)
[2022-09-10 15:36] LABS: Estmated Average Glucose 111; Hemoglobin A1C 5.5 % (4.0-6.0)
[2022-09-10 16:09] LABS: Alanine Aminotransferase 23 U/L (0-33); Albumin Level 3.4 g/dL (3.5-5.2); Alkaline Phosphatase 99 U/L (35-105); Anion Gap 13.1 (5-19); Aspartate Amino Transferase 17 U/L (0-32); Blood Urea Nitrogen 10 mg/dL (6-20); Calcium 9.1 mg/dL (8.5-10.5); Carbon Dioxide 25 mmol/L (22-29); Chloride 104 mmol/L (98-107); Chol HDL Ratio 3.33 mg/dL (0.0-4.40); Cholesterol 210 mg/dL (0-200); Globulin 3.5 g/dL (1.3-4.6); Glomerular Filtration Rate 90.5 mL/min (90-130); Glucose 85 mg/dL (65-115); HDL Cholesterol 63 mg/dL (60-100); LDL Cholesterol Calculated 117 mg/dL (50-129); LDL HDL Ratio 1.86 RATIO (0.00-3.22); Osmolality Calculated 284 mOsm/kg (285-295); Potassium 4.1 mmol/L (3.5-5.1); Sodium 138 mmol/L (136-145); Total Bilirubin 0.2 mg/dL (0.15-1.2); Total Protein 6.9 g/dL (6.6-8.7); Triglycerides 148 mg/dL (0-150)
[2022-09-13 10:12] LABS: Ferritin 7 ng/mL (15-150); Iron 34 ug/dL (37-145); Percent Saturation 8.7 % (20-50); Total Iron Binding Capacity 390 mcg/dl; Unsaturated Iron Binding 356 ug/dL (112-347)
== END 2022-09-10 14:51 | disposition home or self-care (01) ==
LOC: LAB 14:53
PROVIDERS: PCP Family Medicine; Visit Provider Family Medicine
DX: R73.9 Hyperglycemia, unspecified (principal); D64.9 Anemia, unspecified
CPT/HCPCS: 36415; 80053; 80061; 82728; 83036; 83540; 83550; 85025

== ENCOUNTER 2022-09-27 12:53 | Emergency (ER) | payer MEDICAID, SELFPAY ==
[2022-09-27 13:04] VITALS: BP 154/93; PULSE 101; RESP 20; TEMP 36.6; O2SAT 98
--- NOTE | 2022-09-27 13:10 | ECG_ITS ---
[facility] Test Date: 2022-09-27 Pat Name: Judy Dietrich Department: Room: Gender: Female Tailman: : 1975 Requested By: Adama Andrew Order Number: [id number] Coni MD: Tran Connelly M.D. Measurements Intervals [place] Rate: 98 P: 48 LA: 126 QRS: 59 QRSD: 90 T: 59 QT: 358 QTc: 459 Interpretive Statements SINUS RHYTHM LOW QRS VOLTAGE IN PRECORDIAL LEADS Compared to ECG 11/08/2021 06:33:33 No significant changes Electronically Signed On 09-28-2022 12:03:01 CHEMICAL ANALYTICAL SAMPLER by Tran Connelly M.D. [id number] f
--- NOTE | 2022-09-27 13:49 | ED_ITS ---
HPI - General Adult General: Chief complaint: General Medical Stated complaint: SOB, coughing Time Seen by Provider: 09/27/22 13:49 History of Present Illness: Ms. Dietrich is a 47-year-old lady with significant past medical history of continued tobaccoism, COPD, obesity presenting to the emergency department due to chest discomfort and cough with dyspnea. She reports onset of symptoms gradually approximately 2 days ago. Since that time is at intermittently productive cough and a heavy feeling in the middle of her chest with radiation to the back. Intensity symptoms is moderate. Course has worsened. Associated generalized malaise but no other typical cardiac features. No other specific changes in health, exacerbating, or alleviating factors identified. Onset (ago): day(s) Location: chest Severity: moderate Quality: other Pain Consistency: constant Relieving factors: none Exacerbating factors: other Associated symptoms: Reports chest pain, cough, dyspnea and malaise Review of Systems General: Reports: 10 or more systems reviewed and unremarkable except in HPI and below Const: Reports: malaise Card: Reports: chest pain Resp: Reports: dyspnea PFSH ED PFSH: Medical History Anxiety Arthritis, midfoot Borderline personality disorder Chronic pain Chronic post-traumatic stress disorder Current every day nicotine vaping Elevated blood pressure reading without diagnosis of hypertension Encounter for pre-bariatric surgery counseling and education Generalized anxiety disorder GERD (gastroesophageal reflux disease) Hot flashes due to menopause Leg edema Major depressive disorder, recurrent, moderate Nicotine dependence, cigarettes, uncomplicated Obesity Plantar fasciitis, bilateral Posterior right knee pain Postmenopausal Psychiatric care Surgical History History of 3 sections 1993,1999,2002 History of dilation and curettage (~2012) History of foot surgery BILATERAL- PLANTAR FASCITIS RELEASE History of hysterectomy (~2018) History of laparoscopic cholecystectomy (~2014) History of tubal ligation (~2002) Family History Father Hypertension Heart disease Diabetes Mother Thyroid condition Diabetes Obesity Grandmother Obesity Denies family history of Anesthesia complication Bleeding disorder Social History Smoking and tobacco status: current every day smoker cigarettes Packs smoked per day: 0.75 Years cigarettes smoked: 25 and e-cigarettes E-Cigarette Details: vaporizer device Alcohol intake: never Flakita/Rastafari: None Physical Exam Const: COMMON NORMALS: alert GENERAL APPEARANCE: cooperative and well developed HENMT: COMMON NORMALS: normocephalic and atraumatic HEAD & SCALP: normocephalic and atraumatic Eye: COMMON NORMALS: conjunctivae normal CONJUNCTIVA: Yes conjunctivae normal SCLERA: sclerae normal Neck/C-Spine: COMMON NORMALS: supple GENERAL: Yes trachea midline Resp: EFFORT & INSPECTION: Yes able to speak in complete sentences AUSCULTATION: diminished lung sounds Cardio: COMMON NORMALS: regular rate and regular rhythm RATE: regular rate RHYTHM: regular rhythm GI: COMMON NORMALS: Soft to palpation PALPATION: Yes Soft to palpation and No Tenderness to palpation present (GI) Extremity: GENERAL: Yes normal exam except as noted and No edema Neuro: COMMON NORMALS: moves all extremities SENSORIUM/ORIENTATION: Yes alert and No Orientation impaired Psych: COMMON NORMALS: mental status grossly normal and Normal thought process present THOUGHT PROCESS: Normal thought process present Course Vital Signs: Vital signs: Vital Signs Temperature 97.9 F 09/27/22 13:04 Pulse Rate 91 09/27/22 17:12 Respiratory Rate 16 09/27/22 17:12 Blood Pressure 151/85 09/27/22 17:12 Pulse Oximetry 91 09/27/22 17:12 Oxygen Delivery Me thod 09/27/22 17:12 [facility] - General Adult Medical Decision Making 47-year-old lady presenting with chest discomfort and respiratory symptoms. Nontoxic on exam. EKG notable for sinus rhythm, no STEMI Labs notable for mild leukocytosis, near baseline microcytic anemia. Metabolic panel without significant abnormality requiring intervention. Initial troponin with greater than 6 hours of symptoms he is negative. D-dimer negative. Chest x-ray with no lobar consolidation or pneumothorax. Patient improved with COPD exacerbation treatment. Given associated respiratory symptoms most likely etiology of chest discomfort is related to cough and COPD exacerbation. The results of ED evaluation were discussed with the patient including prescriptions and/or symptomatic cares (if applicable) including appropriate and responsible use, followup plan, and return precautions. The patient verbalized understanding and felt safe for discharge. Medical Records I reviewed the patient's medical records. Lab Data I reviewed the patient's lab results. : 09/27/22 14:30 09/27/22 14:30 Radiology Impressions Chest X-Ray 09/27/22 14:09 Impression: Negative chest. Laboratory Results WBC 10.9 10^3/uL (4.0-10.0) H 09/27/22 14:30 RBC 4.42 10^6/uL (4.1-5.3) 09/27/22 14:30 Hgb 11.0 g/dL (11.5-15.3) L 09/27/22 14:30 Hct 35.6 % (37.0-47.0) L 09/27/22 14:30 MCV 80.5 fl (81-99) L 09/27/22 14:30 MCH 24.9 pg (28.0-34.0) L 09/27/22 14:30 MCHC 30.9 g/dL (30.0-36.0) 09/27/22 14:30 RDW 17.4 % (12.1-15.1) H 09/27/22 14:30 Plt Count 421 10^3/cmm (130-400) H 09/27/22 14:30 MPV 9.4 fL (7.4-10.4) 09/27/22 14:30 Neut % (Auto) 63.0 % 09/27/22 14:30 Lymph % (Auto) 30.2 % 09/27/22 14:30 Aurora % (Auto) 5.3 % 09/27/22 14:30 Eos % (Auto) 0.7 % 09/27/22 14:30 Baso % (Auto) 0.3 % 09/27/22 14:30 Neut # (Auto) 6.87 10^3/uL (1.8-7.7) 09/27/22 14:30 Lymph # (Auto) 3.3 10^3/uL (0.8-4.8) 09/27/22 14:30 Aurora # (Auto) 0.6 10^3/uL (0.2-0.9) 09/27/22 14:30 Eos # (Auto) 0.1 10^3/uL (0.0-0.8) 09/27/22 14:30 Baso # (Auto) 0.0 10^3/uL (0.0-0.1) 09/27/22 14:30 Nucleated RBC % (auto) 0 % 09/27/22 14:30 Nucleated RBCs # 0.0 /100WBC 09/27/22 14:30 D-Dimer 0.53 ug/mIFEU (0-0.59) 09/27/22 14:30 Sodium 134 mmol/L (136-145) L 09/27/22 14:30 Potassium 4.4 mmol/L (3.5-5.1) 09/27/22 14:30 Chloride 100 mmol/L (98-107) 09/27/22 14:30 Carbon Dioxide 26 mmol/L (22-29) 09/27/22 14:30 Anion Gap 12.4 (5-19) 09/27/22 14:30 BUN 10 mg/dL (6-20) 09/27/22 14:30 Creatinine 0.6 mg/dL (0.5-0.9) 09/27/22 14:30 GFR Calculation 108.1 mL/min (90-130) 09/27/22 14:30 Glucose 90 mg/dL (65-115) 09/27/22 14:30 Calculated Osmolality 277 mOsm/kg (285-295) L 09/27/22 14:30 Calcium 8.9 mg/dL (8.5-10.5) 09/27/22 14:30 Total Bilirubin 0.2 mg/dL (0.15-1.2) 09/27/22 14:30 AST 12 U/L (0-32) 09/27/22 14:30 ALT 16 U/L (0-33) 09/27/22 14:30 Alkaline Phosphatase 108 U/L (35-105) H 09/27/22 14:30 Troponin T Baseline 6 ng/L (0-10) 09/27/22 14:30 NT-Pro-B Natriuret Pep 82 pg/mL (0-125) 09/27/22 14:30 Total Protein 6.7 g/dL (6.6-8.7) 09/27/22 14:30 Albumin 3.4 g/dL (3.5-5.2) L 09/27/22 14:30 Globulin 3.3 g/dL (1.3-4.6) 09/27/22 14:30 Lipase 26 U/L (13-60) 09/27/22 14:30 Influenza Type A Ag negative (Negative) 09/27/22 15:30 Influenza Type B Ag negative (Negative) 09/27/22 15:30 SARS-CoV-2 Ag (Rapid) negative (Negative) 09/27/22 15:30 Discharge Plan Discharge Patient Disposition: Home Clinical Impression: Acute exacerbation of chronic obstructive pulmonary disease, Chest pain Condition: Stable Prescriptions: New doxycycline hyclate 100 mg tablet 100 mg PO BID 10 Days Qty: 20 0RF No Action albuterol sulfate 90 mcg/actuation HFA aerosol inhaler 2 puff inhalation Q6H PRN (Reason: shortness of breath or wheezing) Qty: 8.5 2RF budesonide-formoterol [Symbicort] 160-4.5 mcg/actuation HFA aerosol inhaler 2 puff inhalation Q12H Qty: 10.2 3RF meloxicam 15 mg tablet 15 mg PO DAILY Qty: 30 1RF venlafaxine [Effexor XR] 75 mg capsule,extended release 24hr 75 mg PO QAM Qty: 30 6RF venlafaxine [Effexor XR] 150 mg capsule,extended release 24hr 150 mg PO QAM Qty: 30 6RF ferrous gluconate 324 mg (37.5 mg iron) tablet 324 mg PO BID Qty: 60 3RF hydroxyzine pamoate 50 mg capsule 50 mg PO BID PRN (Reason: anxiety) Qty: 30 3RF estradiol 1 mg tablet 1 mg PO DAILY pantoprazole 40 mg tablet,delayed release (DR/EC) 40 mg PO DAILY Discharge Orders: Discharge ED (Routine); Ordered 09/27/22 Ordered By: Adama Andrew Referrals: Tatyana Bhatia DO [Primary Care Provider] - Discharge Diet: Usual diet Discharge Activity: Increase activity as tolerated Patient Instructions: Chest Pain (ED), COPD (Chronic Obstructive Pulmonary Disease) (ED) Activity Restrictions/Additional Instructions: Thank you for visiting the emergency department. You were seen and evaluated for chest pain and cough and congestion. The most likely cause of your symptoms is exacerbation of underlying lung disease. I will prescribe steroids and antibiotics. Please also use your albuterol metered-dose inhaler 2 puffs every 4 hours for 24 hours followed by every 6 hours for 24 hours followed by every 8 hours for 24 hours and then return to the normal schedule. Please follow-up with your primary care provider. If chest pain persists or becomes recurrent despite treatment of COPD exacerbation you may require further outpatient testing for cardiac work-up. Return to the emergency department for anything that you are concerned about and feel needs emergency department evaluation. Stand Alone Forms: Work/School Release Coding Level of Care Code ED Senior Clinical Study Manager for Camille Fwd Exam Comprehensive
--- NOTE | 2022-09-27 14:09 | XR_ITS ---
WS: [id number] Portable AP upright chest, 09/27/2022 Clinical Data: chest pain, sob Comparison: Portable chest, 11/08/2021 Findings: No nodules, masses or effusions are seen. The heart is normal. The pulmonary vascularity is not increased. No pneumonia or pneumothorax is seen. Monitor leads are on the chest wall. XR/XR chest 1V portable [id number] Impression: Negative chest.
[2022-09-27 14:43] LABS: Basophils % 0.3 %; Eosinophils # 0.1 10^3/uL (0.0-0.8); Eosinophils % 0.7 %; Hematocrit 35.6 % (37.0-47.0); Lymphocytes # 3.3 10^3/uL (0.8-4.8); Lymphocytes % 30.2 %; Mean Corpuscular HGB Conc 30.9 g/dL (30.0-36.0); Mean Corpuscular Hemoglobin 24.9 pg (28.0-34.0); Mean Corpuscular Volume 80.5 fl (81-99); Mean Platelet Volume 9.4 fL (7.4-10.4); Monocytes # 0.6 10^3/uL (0.2-0.9); Monocytes % 5.3 %; Neutrophils # 6.87 10^3/uL (1.8-7.7); Nucleated Red Blood Cells % 0 %; Platelet Count 421 10^3/cmm (130-400); Red Blood Count 4.42 10^6/uL (4.1-5.3); Red Cell Distribution Width 17.4 % (12.1-15.1); White Blood Count 10.9 10^3/uL (4.0-10.0)
[2022-09-27] MEDS: aspirin 81 mg Chew Tablet 324 MG PO (14:44)
[2022-09-27] MEDS: ipratropium-albuterol 3 mL Neb INHALATION (14:46)
[2022-09-27 14:47] VITALS: PULSE 87; RESP 16; O2SAT 95
[2022-09-27 14:50] VITALS: PULSE 89
[2022-09-27 15:00] LABS: D Dimer 0.53 ug/mIFEU (0-0.59)
[2022-09-27 15:09] LABS: Troponin(5th) Baseline 6 ng/L (0-10)
[2022-09-27 15:17] LABS: Alanine Aminotransferase 16 U/L (0-33); Albumin Level 3.4 g/dL (3.5-5.2); Alkaline Phosphatase 108 U/L (35-105); Anion Gap 12.4 (5-19); Aspartate Amino Transferase 12 U/L (0-32); Blood Urea Nitrogen 10 mg/dL (6-20); Calcium 8.9 mg/dL (8.5-10.5); Carbon Dioxide 26 mmol/L (22-29); Chloride 100 mmol/L (98-107); Globulin 3.3 g/dL (1.3-4.6); Glomerular Filtration Rate 108.1 mL/min (90-130); Glucose 90 mg/dL (65-115); Lipase 26 U/L (13-60); NT Pro B Type Natriuretic Pept 82 pg/mL (0-125); Osmolality Calculated 277 mOsm/kg (285-295); Potassium 4.4 mmol/L (3.5-5.1); Sodium 134 mmol/L (136-145); Total Bilirubin 0.2 mg/dL (0.15-1.2); Total Protein 6.7 g/dL (6.6-8.7)
--- NOTE | 2022-09-27 16:09 | ECG_ITS ---
[facility] Test Date: 2022-09-27 Pat Name: Judy Dietrich Department: Room: Gender: Female Emergency Medicine Nurse Practitioner: : 1975 Requested By: Adama Andrew Order Number: [id number] Coni MD: Tran Connelly M.D. Measurements Intervals [place] Rate: 88 P: 63 [place]: 142 QRS: 62 QRSD: 94 T: 61 QT: 374 QTc: 454 Interpretive Statements SINUS RHYTHM LOW QRS VOLTAGE IN PRECORDIAL LEADS [QRS DEFLECTION < 1.0 mV IN CHEST LEADS] Compared to ECG 09/27/2022 13:10:54 No significant changes Electronically Signed On 09-28-2022 12:11:17 HAUL CANE BRAKEMAN by Tran Connelly M.D. [id number]
[2022-09-27 16:12] VITALS: BP 139/95; PULSE 89; RESP 16; O2SAT 94
[2022-09-27 16:25] LABS: Influenza A by IFA negative (Negative); Influenza B by IFA negative (Negative); SARS Covid-2 Antigen negative (Negative)
[2022-09-27] MEDS: doxycycline 100 mg Tablet PO (17:00)
[2022-09-27 17:12] VITALS: BP 151/85; PULSE 91; RESP 16; O2SAT 91
== END 2022-09-27 17:22 | disposition home or self-care (01) ==
PROVIDERS: Emergency Provider Emergency Medicine; PCP Family Medicine
DX: J44.1 Chronic obstructive pulmonary disease with (acute) exacerbation (principal); R07.9 Chest pain, unspecified; F17.210 Nicotine dependence, cigarettes, uncomplicated; D72.829 Elevated white blood cell count, unspecified; D64.9 Anemia, unspecified
CPT/HCPCS: 71045; 80053; 83690; 83880; 84484; 85025; 85378; 87426; 87804; 93005; 94640; 96374; 99285; J2930

== ENCOUNTER 2022-10-05 14:05 | Outpatient (CLI) | payer MEDICAID, SELFPAY ==
--- NOTE | 2022-10-05 14:17 | MM_ITS ---
WS: [id number] BILATERAL 3D TOMOSYNTHESIS DIGITAL SCREENING MAMMOGRAM WITH CAD CLINICAL INFORMATION: screening mammogram HISTORY: Screening mammogram. No current complaints. COMPARISON: August 13, 2020 TECHNIQUE: Bilateral CC and MLO views. FINDINGS: Fatty-replaced breasts bilaterally. No suspicious focal mass, asymmetry, calcifications, or sap solutions architect ural distortion. No evidence of malignancy. A few incidental tiny punctate calcifications. MM/[place] [id number] IMPRESSION: BI-RADS: 2-Benign FOLLOW UP: 1 Year Follow-up Recommend return to annual screening mammography.
== END 2022-10-05 14:06 | disposition home or self-care (01) ==
LOC: RAD 14:06
PROVIDERS: PCP Family Medicine; Visit Provider Family Medicine
DX: Z12.31 Encounter for screening mammogram for malignant neoplasm of breast (principal)
CPT/HCPCS: 77063; 77067

== ENCOUNTER 2022-10-13 08:36 | Day surgery (SDC) | payer MEDICAID, SELFPAY ==
[2022-10-12 13:32] VITALS: BMI 57.8
[2022-10-13 09:03] VITALS: BP 128/91; PULSE 119; RESP 18; TEMP 36.5; O2SAT 96
[2022-10-13] MEDS: sodium chloride 0.9% 1,000 ML 30 ML IV (09:30)
--- NOTE | 2022-10-13 09:31 | P.ANESASSM_ITS ---
Pre-Anesthetic Assessment Height/Weight: Height 1.55 m Weight 138.799 kg Temp Pulse Resp BP Pulse Ox O2 Del Method 97.7 F 119 H 18 128/91 96 10/13/22 09:03 10/13/22 09:03 10/13/22 09:03 10/13/22 09:03 10/13/22 09:03 10/13/22 09:03 Preop Diagnosis: GERD, anemia Operation Date: 10/13/22 10:15 Proposed Procedures p 14113 egd, [address] colon D50.9,K21.9,Z12.11(Not Applicable) - Marques Lloyd DO s Colonoscopy(Not Applicable) - Marques Lloyd DO Was Beta Sal taken within 24 hours: N/A Was Clonidine taken within 24 hours: N/A Last intake: Intake Last Liquid Date 10/12/22 Last Liquid Time 23:00 Last Solid Date 10/11/22 Last Solid Time 19:00 Social Tobacco 3/4 pack(s) per day last cig last night Exam alert, oriented x 3, clear to auscultation bilaterally and regular rate & rhythm Airway Submandibular: within normal limits Cervical ROM: within normal limits Mallampati: Class I Comments: Comments: missing front teeth, denies loose teeth History/ROS No significant history except as noted Pulmonary Chronic Obstructive Pulmonary Disease and Sleep Apnea noncompliant with cpap for over 1 year CV/HEM stress test upcoming, patient does not know the reason for the test None reported Hepatic None reported GI Gastroesophageal Reflux Disease controlled with protonix Metabolic Morbid Obesity [facility] None reported Neuropsych Anxiety and Depression Anesthetic Plan ASA status: 3 Anesthesia: Anesthesia Evaluation and MAC Risk of > 500 ml blood loss (7ml/kg in children): Yes, adequate IV access and fluids planned Medications/Allergies Home Medications Medication Instructions Recorded Confirmed Last Taken Type albuterol sulfate 90 mcg/actuation 2 puff inhalation Q6H PRN 12/15/21 10/13/22 Unknown Rx aerosol inhaler shortness of breath or wheezing #8.5 grams budesonide-formoterol HFA 160 2 puff inhalation Q12H #10.2 grams 09/10/22 10/13/22 10/06/22 Rx mcg-4.5 mcg/actuation aerosol inhaler (Symbicort) meloxicam 15 mg tablet 15 mg PO DAILY #30 tabs 09/10/22 10/13/22 10/12/22 Rx ferrous gluconate 324 mg (37.5 mg 324 mg PO BID #60 tabs 09/13/22 10/13/22 10/12/22 Rx iron) tablet venlafaxine 150 mg 150 mg PO QAM #30 caps 09/15/22 10/13/22 10/13/22 Rx capsule,extended release 24 hr (Effexor XR) venlafaxine 75 mg capsule,extended 75 mg PO QAM #30 caps 09/15/22 10/13/22 10/13/22 Rx release 24 hr (Effexor XR) estradiol 1 mg tablet 1 mg PO DAILY 09/27/22 10/13/22 10/12/22 History hydroxyzine pamoate 50 mg capsule 50 mg PO BID PRN anxiety #30 caps 09/27/22 10/13/22 10/11/22 Rx pantoprazole 40 mg tablet,delayed 40 mg PO BID 6 weeks #84 tabs 10/12/22 10/13/22 10/13/22 Rx release (Protonix) Allergies Allergy/AdvReac Type Severity Reaction Status Date / Time penicillin G Allergy Severe Unknown Verified 10/12/22 09:03 [facility] Anesthesia Medical History (Updated 10/12/22 @ 09:30 by Marques Lloyd DO) Anxiety Arthritis, midfoot Borderline personality disorder Chronic pain Chronic post-traumatic stress disorder Current every day nicotine vaping Elevated blood pressure reading without diagnosis of hypertension Encounter for pre-bariatric surgery counseling and education Generalized anxiety disorder GERD (gastroesophageal reflux disease) Hot flashes due to menopause Leg edema Major depressive disorder, recurrent, moderate Nicotine dependence, cigarettes, uncomplicated Obesity Plantar fasciitis, bilateral Posterior right knee pain Postmenopausal Psychiatric care Surgical History (Updated 10/12/22 @ 09:30 by Marques Lloyd DO) History of 3 sections 1994,1999,2002 History of dilation and curettage (~2012) History of esophagogastroduodenoscopy (EGD) 2 yrs ago History of foot surgery BILATERAL- PLANTAR FASCITIS RELEASE History of hysterectomy (~2018) History of laparoscopic cholecystectomy (~2014) History of tubal ligation (~2002) Family History Father Hypertension Heart disease Diabetes Mother Thyroid condition Diabetes Obesity Grandmother Obesity Denies family history of Anesthesia complication Bleeding disorder Social History Smoking and tobacco status: current every day smoker cigarettes Packs smoked per day: 0.75 Years cigarettes smoked: 25 and e-cigarettes E-Cigarette Details: vaporizer device Alcohol intake: never Flakita/Pentecostal: None Data Anesthesia Cardiac Studies: No Data to Display
--- NOTE | 2022-10-13 10:44 | W.PM.OPSUD ---
Surgery/Procedure H&P Update DATE OF PROCEDURE: October 13, 2022 DATE H&P PERFORMED: 10/12/22 PREOP DIAGNOSIS: GERD, anemia PLANNED PROCEDURE: Operation Date: 10/13/22 10:15 Proposed Procedures p 74960 egd, 53145 colon D50.9,K21.9,Z12.11(Not Applicable) - DO beatrice Wilson Colonoscopy(Not Applicable) - Marques Lloyd DO
[2022-10-13 11:24] VITALS: BP 103/74; PULSE 104; RESP 18; TEMP 36.1; O2SAT 94
[2022-10-13 11:31] VITALS: BP 108/72; PULSE 105; RESP 20; O2SAT 95
--- NOTE | 2022-10-13 14:09 | ANE.PACU2 ---
Inpatient post-anesthesia follow up: Airway intact: Yes Vital signs: Temperature 97.0 F Pulse Rate 105 Respiratory Rate 20 Blood Pressure 108/72 Pulse Oximetry 95 Oxygen Delivery Me thod Room Air Oxygen Flow Rate Fraction of Inspir ed Oxygen Hydration adequate: Yes Nausea and vomiting: No Pain level: 1 Mental status: Baseline
== END 2022-10-13 12:15 | disposition home or self-care (01) ==
PROVIDERS: PCP Family Medicine; Visit Provider Surgery
PROC: 0DJD8ZZ Inspection of Lower Intestinal Tract, Via Natural or Artificial Opening Endoscopic (ICD-10-PCS; CPT 45378; 2022-10-13 10:15)
PROC: 0DJ08ZZ Inspection of Upper Intestinal Tract, Via Natural or Artificial Opening Endoscopic (ICD-10-PCS; CPT 43235; 2022-10-13 10:15)
DX: Z12.11 Encounter for screening for malignant neoplasm of colon (principal); D50.9 Iron deficiency anemia, unspecified; K21.9 Gastro-esophageal reflux disease without esophagitis; K29.50 Unspecified chronic gastritis without bleeding; B96.81 Helicobacter pylori [H. pylori] as the cause of diseases classified elsewhere; F17.290 Nicotine dependence, other tobacco product, uncomplicated; J44.9 Chronic obstructive pulmonary disease, unspecified; G47.30 Sleep apnea, unspecified; F41.9 Anxiety disorder, unspecified; E66.9 Obesity, unspecified; Z68.43 Body mass index [BMI] 50.0-59.9, adult
CPT/HCPCS: 43239; 45378; 88305; J2704; J7030

== ENCOUNTER → 2022-12-30 10:42 | Outpatient (BNVA) | payer MEDICAID, SELFPAY | PROVIDERS: PCP Family Medicine; Visit Provider Family Medicine Adult Medicine | DX: N39.0 Urinary tract infection, site not specified (principal) | CPT/HCPCS: 81000 ==

== ENCOUNTER → 2023-02-15 10:26 | Outpatient (BNVA) | payer MEDICAID, SELFPAY | PROVIDERS: PCP Family Medicine; Visit Provider Anesthesiology Pain Medicine | DX: M50.30 Other cervical disc degeneration, unspecified cervical region (principal) | CPT/HCPCS: 72050 ==

== ENCOUNTER → 2023-02-25 10:00 | Outpatient (BNVA) | payer OTHER, SELFPAY | PROVIDERS: PCP Family Medicine; Visit Provider Nurse Practitioner Psychiatric/Mental Health | DX: Z79.899 Other long term (current) drug therapy (principal) | CPT/HCPCS: 80053; 80061; 83036; 84443 ==

== ENCOUNTER 2023-04-07 12:54 | Outpatient (CLI) | payer MEDICAID, SELFPAY ==
--- NOTE | 2023-04-07 14:30 | MR_ITS ---
WS: [id number] MRI CERVICAL SPINE NONCONTRAST TECHNIQUE: Sagittal T1, T2 and STIR imaging. Axial T2, gradient, and fiesta imaging. CLINICAL INFORMATION: M54.16 - Radiculopathy, lumbar region COMPARISON: None. FINDINGS: Straightening with reversal normal cervical lordosis. Cord signal is normal. No high-grade central ca nal narrowing. C2-C3: Normal. C3-C4: Mild facet arthropathy. Spinal canal and foramen are patent. C4-C5: Minimal disc bulging. Mild facet arthropathy. Spinal canal and foramen are patent. C5-C6: Minimal disc bulging. Mild facet arthropathy. Spinal canal and foramen are patent. C6-C7: Minimal disc bulging. Mild facet arthropathy. Spinal canal and foramen are patent. C7-T1: Normal. Visualized brain stem structures: Normal. Prevertebral soft tissues: Normal. MR/MR cervical spin wo con* [id number] IMPRESSION: 1. Straightening with slight reversal normal cervical lordosis. Cord signal is normal. 2. No significant spinal canal or foraminal narrowing. 3. Mild facet arthropathy C3-C4 C4-C5 C5-C6. 4. Minimal disc bulging C3-C6. Slight anterolisthesis C5 on C6.
== END 2023-04-07 12:55 | disposition home or self-care (01) ==
LOC: RAD 12:57
PROVIDERS: PCP Family Medicine; Visit Provider Anesthesiology Pain Medicine
DX: M54.16 Radiculopathy, lumbar region (principal); M47.892 Other spondylosis, cervical region; M50.31 Other cervical disc degeneration, high cervical region
CPT/HCPCS: 72141

== ENCOUNTER 2023-04-15 15:13 | Emergency (ER) | payer MEDICAID, SELFPAY ==
[2023-04-15 15:23] VITALS: BP 131/83; PULSE 102; RESP 16; TEMP 36.6; O2SAT 96; BMI 58.1
[2023-04-15 16:27] VITALS: BP 129/78; PULSE 96; RESP 16; TEMP 36.7; O2SAT 96
[2023-04-15 17:30] VITALS: BP 140/69; PULSE 96; RESP 19; TEMP 36.7; O2SAT 96
[2023-04-15] MEDS: ondansetron 2 mg/ML SDV 2 mL 4 MG IVP (18:12)
[2023-04-15] MEDS: lidocaine 2% viscous 15 ML, aluminum-mag hydrox-simethicon 30 ML, sucralfate oral liq 1 GM PO (18:12)
[2023-04-15 18:25] LABS: Basophils % 0.2 %; Eosinophils # 0.1 10^3/uL (0.0-0.8); Eosinophils % 1.3 %; Hemoglobin 12.8 g/dL (11.5-15.3); Lymphocytes # 3.2 10^3/uL (0.8-4.8); Lymphocytes % 32.1 %; Mean Corpuscular Hemoglobin 26.8 pg (28.0-34.0); Mean Corpuscular Volume 83.9 fl (81-99); Mean Platelet Volume 9.3 fL (7.4-10.4); Monocytes # 0.6 10^3/uL (0.2-0.9); Monocytes % 5.6 %; Neutrophils # 6.03 10^3/uL (1.8-7.7); Neutrophils % 60.6 %; Nucleated Red Blood Cells % 0 %; Platelet Count 399 10^3/cmm (130-400); Red Blood Count 4.77 10^6/uL (4.1-5.3); Red Cell Distribution Width 14.6 % (12.1-15.1)
--- NOTE | 2023-04-15 18:26 | W.ED.ABDPA2 ---
HPI - Abdominal Pain General: Chief Complaint: Abdominal Pain Stated Complaint: brie reza Time Seen by Provider: 04/15/23 17:55 Source: patient Mode of arrival: ambulatory Limitations: no limitations History of Present Illness: 48-year-old female states she been having epigastric abdominal pain over the last 4 days. She has a history of H. pylori and reflux she takes Protonix daily states pain is a sharp pain states it felt like when she had H. pylori. She states that much worse with eating and drinking. She denies any vomiting denies any fevers. Denies any dysuria Associated Symptoms: Denies chills, diarrhea, dysuria, fever(s), nausea and vomiting Review of Systems Const: Denies: fever(s) or chills Eyes: Denies: eye discomfort ENMT: Denies: throat pain or dental pain Card: Denies: chest pain Resp: Denies: dyspnea GI: Reports: abdominal pain; Denies: nausea, vomiting or diarrhea : Denies: dysuria Musc: Denies: neck pain or back pain Skin/Breast: Denies: rash Neuro: Denies: headache(s) PFSH ED PFSH: Medical History Arthritis, midfoot Borderline personality disorder Chronic pain Chronic post-traumatic stress disorder Encounter for pre-bariatric surgery counseling and education Generalized anxiety disorder GERD (gastroesophageal reflux disease) Hot flashes due to menopause Major depressive disorder, recurrent, moderate Nicotine dependence, cigarettes, uncomplicated Obesity Plantar fasciitis, bilateral Posterior right knee pain Postmenopausal Psychiatric care Surgical History History of 3 sections 1993,1999,2002 History of dilation and curettage (~2012) History of esophagogastroduodenoscopy (EGD) 2 yrs ago History of foot surgery BILATERAL- PLANTAR FASCITIS RELEASE History of hysterectomy (~2018) History of laparoscopic cholecystectomy (~2014) History of tubal ligation (~2002) Family History Father Hypertension Heart disease Diabetes Mother Thyroid condition Diabetes Obesity Grandmother Obesity Other Helicobacter pylori gastritis Denies family history of Anesthesia complication Bleeding disorder Social History Smoking and tobacco status: current every day smoker cigarettes Packs smoked per day: 0.75 Years cigarettes smoked: 25 and e-cigarettes E-Cigarette Details: vaporizer device Alcohol intake: never Substance/Drug Use: never Do you think of yourself as: Decline to Answer Flakita/Jain: None Physical Exam Const: COMMON NORMALS: no acute distress, patient oriented x3 and healthy appearing HENMT: COMMON NORMALS: normocephalic and atraumatic HEAD & SCALP: normocephalic and atraumatic Eye: COMMON NORMALS: conjunctivae normal CONJUNCTIVA: Yes conjunctivae normal Neck/C-Spine: COMMON NORMALS: full ROM and supple Chest: COMMONS NORMALS: normal inspection of the chest and normal palpation of entire chest wall Resp: COMMON NORMALS: normal respiratory effort, No retractions, No use of accessory muscles and clear to auscultation bilaterally AUSCULTATION: clear to auscultation bilaterally Cardio: COMMON NORMALS: regular rate, regular rhythm and No murmurs present (Cardio) RATE: regular rate RHYTHM: regular rhythm GI: COMMON NORMALS: Normal to inspection, nondistended, normoactive bowel sounds present, Soft to palpation, non-tender and no masses PALPATION: Yes Soft to palpation Extremity: COMMON NORMALS: normal to inspection and full ROM Neuro: COMMON NORMALS: patient oriented x3, moves all extremities and no focal motor deficits Psych: COMMON NORMALS: mental status grossly normal, Normal thought process present and cooperative THOUGHT PROCESS: Normal thought process present Skin: COMMON NORMALS: no rashes or lesions noted and no wounds GENERAL SKIN EXAM: no rashes or lesions noted Course Vital Signs: Vital signs: Vital Signs Temperature 98.1 F 04/15/23 17:30 Pulse Rate 97 04/15/23 19:27 Respiratory Rate 16 04/15/23 19:27 Blood Pressure 110/74 04/15/23 19:27 Pulse Oximetry 97 04/15/23 19:27 Oxygen Delivery Me thod Room Air 04/15/23 15:23 MDM - Abdominal Pain Medical Decision Making Patient presents here with abdominal pain likely gastritis her blood work here is normal she feels improved after GI cocktail is no signs of acute surgical abdomen she had a cholecystectomy we will add Carafate we will get her follow-up with Dr. Lloyd she likely needs another scope. She is return if worsening she understands agrees to plan. Differential Diagnosis Likely abdominal pain; Unlikely acute appendicitis, diverticulitis, pancreatitis or small bowel obstruction Medical Records I reviewed the patient's medical records. Lab Data I reviewed the patient's lab results. 04/15/23 18:06 04/15/23 18:06 Labs/Radiology: Laboratory Results WBC 10.0 10^3/uL (4.0-10.0) 04/15/23 18:06 RBC 4.77 10^6/uL (4.1-5.3) 04/15/23 18:06 Hgb 12.8 g/dL (11.5-15.3) 04/15/23 18:06 Hct 40.0 % (37.0-47.0) 04/15/23 18:06 MCV 83.9 fl (81-99) 04/15/23 18:06 MCH 26.8 pg (28.0-34.0) L 04/15/23 18:06 MCHC 32.0 g/dL (30.0-36.0) 04/15/23 18:06 RDW 14.6 % (12.1-15.1) 04/15/23 18:06 Plt Count 399 10^3/cmm (130-400) 04/15/23 18:06 MPV 9.3 fL (7.4-10.4) 04/15/23 18:06 Neut % (Auto) 60.6 % 04/15/23 18:06 Lymph % (Auto) 32.1 % 04/15/23 18:06 Price % (Auto) 5.6 % 04/15/23 18:06 Eos % (Auto) 1.3 % 04/15/23 18:06 Baso % (Auto) 0.2 % 04/15/23 18:06 Neut # (Auto) 6.03 10^3/uL (1.8-7.7) 04/15/23 18:06 Lymph # (Auto) 3.2 10^3/uL (0.8-4.8) 04/15/23 18:06 Price # (Auto) 0.6 10^3/uL (0.2-0.9) 04/15/23 18:06 Eos # (Auto) 0.1 10^3/uL (0.0-0.8) 04/15/23 18:06 Baso # (Auto) 0.0 10^3/uL (0.0-0.1) 04/15/23 18:06 Nucleated RBC % (auto) 0 % 04/15/23 18:06 Nucleated RBCs # 0.0 /100WBC 04/15/23 18:06 Sodium 136 mmol/L (136-145) 04/15/23 18:06 Potassium 4.4 mmol/L (3.5-5.1) 04/15/23 18:06 Chloride 101 mmol/L (98-107) 04/15/23 18:06 Carbon Dioxide 24 mmol/L (22-29) 04/15/23 18:06 Anion Gap 15.4 (5-19) 04/15/23 18:06 BUN 12 mg/dL (6-20) 04/15/23 18:06 Creatinine 0.6 mg/dL (0.5-0.9) 04/15/23 18:06 GFR Calculation 107.6 mL/min (90-130) 04/15/23 18:06 Glucose 111 mg/dL (65-115) 04/15/23 18:06 Calculated Osmolality 282 mOsm/kg (285-295) L 04/15/23 18:06 Calcium 9.2 mg/dL (8.5-10.5) 04/15/23 18:06 Total Bilirubin 0.2 mg/dL (0.15-1.2) 04/15/23 18:06 AST 21 U/L (0-32) 04/15/23 18:06 ALT 24 U/L (0-33) 04/15/23 18:06 Alkaline Phosphatase 105 U/L (35-105) 04/15/23 18:06 Total Protein 6.9 g/dL (6.6-8.7) 04/15/23 18:06 Albumin 4.0 g/dL (3.5-5.2) 04/15/23 18:06 Globulin 2.9 g/dL (1.3-4.6) 04/15/23 18:06 Lipase 29 U/L (13-60) 04/15/23 18:06 Urine Color Yellow (Yellow) 04/15/23 18:07 Urine Appearance Cloudy (CLEAR) A 04/15/23 18:07 Urine pH 5 (5-7) 04/15/23 18:07 Ur Specific [place] 1.025 (1.005-1.030) 04/15/23 18:07 Urine Protein Neg (Negative) 04/15/23 18:07 Urine Glucose (UA) Norm (Normal) 04/15/23 18:07 Urine Ketones Negative (Negative) 04/15/23 18:07 Urine Blood Neg (Negative) 04/15/23 18:07 Urine Nitrate Negative (Negative) 04/15/23 18:07 Urine Bilirubin 1+ (Negative) H 04/15/23 18:07 Urine Urobilinogen Norm mg/dL (Negative) 04/15/23 18:07 Ur Leukocyte Esterase Negative (Negative) 04/15/23 18:07 Discharge Plan Discharge Patient Disposition: Home Clinical Impression: Abdominal pain Condition: Stable Prescriptions: New hydrocodone-acetaminophen 5-325 mg tablet 1 tab PO Q6H PRN (Reason: pain) Qty: 14 0RF ondansetron 4 mg tablet,disintegrating 4 mg PO Q6H PRN (Reason: nausea and vomiting) Qty: 14 0RF Carafate 1 gram tablet 1 g PO BID 28 Days Qty: 56 0RF No Action albuterol sulfate 90 mcg/actuation HFA aerosol inhaler 2 puff inhalation Q6H PRN (Reason: shortness of breath or wheezing) Qty: 8.5 2RF (DME) CPAP mask, tubing, and supplies See Rx Instructions .Route .MEDSUPPLY Qty: 1 0RF Rx Instructions: As directed tizanidine 4 mg tablet 4 mg PO .q hs PRN (Reason: muscle spasticity) Qty: 30 1RF naproxen [Naprosyn] 500 mg tablet 500 mg PO BID Qty: 60 1RF fluticasone propionate [Flonase Allergy Relief] 50 mcg/actuation spray,suspension 2 spray intranasal DAILY Qty: 16 2RF Rx Instructions: administer into each nostril Spiriva with HandiHaler 18 mcg capsule, w/inhalation device 1 cap inhalation DAILY Qty: 60 3RF Rx Instructions: puncture 1 cap using device; one dose = 2 inhalations budesonide-formoterol [Symbicort] 160-4.5 mcg/actuation HFA aerosol inhaler 2 puff inhalation Q12H Qty: 10.2 3RF ferrous gluconate 324 mg (37.5 mg iron) tablet 324 mg PO BID Qty: 60 3RF estradiol 1 mg tablet 1 mg PO DAILY Qty: 30 2RF venlafaxine [Effexor XR] 75 mg capsule,extended release 24hr 75 mg PO QAM Qty: 30 6RF venlafaxine [Effexor XR] 150 mg capsule,extended release 24hr 150 mg PO QAM Qty: 30 6RF hydroxyzine pamoate 50 mg capsule 50 mg PO BID PRN (Reason: anxiety) Qty: 30 3RF pantoprazole [Protonix] 40 mg tablet,delayed release (DR/EC) 40 mg PO BID Qty: 60 0RF Discharge Orders: Discharge ED (Routine); Ordered 04/15/23 Ordered By: [employer] Nation Referrals: Marques Lloyd DO [Physician] - 1-3 days Tatyana Bhatia DO [Primary Care Provider] - Discharge Diet: Advance as tolerated Discharge Activity: Resume usual activity Patient Instructions: Abdominal Pain (ED) Coding Level of Care Code ED 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
[2023-04-15 18:41] LABS: Add Urine Microscopic? NO; Blood Urine Neg (Negative); Glucose Urine UA Norm (Normal); Ketones Urine Negative (Negative); Nitrate Urine Negative (Negative); Protein Urine Neg (Negative); Specific Gravity, Urine 1.025 (1.005-1.030); Urine Appearance Cloudy (CLEAR); Urine Color Yellow (Yellow); pH Urine 5 (5-7)
[2023-04-15 18:42] LABS: Bilirubin Urine 1+ (Negative); Leukocyte Esterase Urine Negative (Negative); Urobilinogen Urine Norm (Negative)
[2023-04-15 18:44] LABS: Charge for UA Resulting for Rev
[2023-04-15 18:46] LABS: Alanine Aminotransferase 24 U/L (0-33); Alkaline Phosphatase 105 U/L (35-105); Anion Gap 15.4 (5-19); Aspartate Amino Transferase 21 U/L (0-32); Blood Urea Nitrogen 12 mg/dL (6-20); Calcium 9.2 mg/dL (8.5-10.5); Carbon Dioxide 24 mmol/L (22-29); Chloride 101 mmol/L (98-107); Globulin 2.9 g/dL (1.3-4.6); Glomerular Filtration Rate 107.6 mL/min (90-130); Glucose 111 mg/dL (65-115); Lipase 29 U/L (13-60); Osmolality Calculated 282 mOsm/kg (285-295); Potassium 4.4 mmol/L (3.5-5.1); Sodium 136 mmol/L (136-145); Total Bilirubin 0.2 mg/dL (0.15-1.2); Total Protein 6.9 g/dL (6.6-8.7)
[2023-04-15] MEDS: HYDROcodone-acetaminophen 7.5-325 mg Tablet 1 TAB PO (19:20)
[2023-04-15 19:27] VITALS: BP 110/74; PULSE 97; RESP 16; O2SAT 97
[2023-04-15 21:06] LABS: HCG, Serum Qual Negative (Negative)
--- NOTE | 2023-04-18 09:10 | DCPLANNER ---
Addendum entered by Trupti Camp 05/27/23 10:53: This appointment was rescheduled Addendum entered by Trupti Camp 04/26/23 10:36: Patient has an appointment scheduled for Thursday, May 11, 2023 at 2:[address] Lloyd. Original Note: call manager had message to schedule a follow up appointment for patient with general surgery. call manager sent patients information to the front office staff at general surgery. Patients information will be printed and reviewed. Clinic will call patient with appointment information.
== END 2023-04-15 19:29 | disposition home or self-care (01) ==
PROVIDERS: Emergency Provider Emergency Medicine; PCP Family Medicine
DX: R10.13 Epigastric pain (principal); F17.210 Nicotine dependence, cigarettes, uncomplicated
CPT/HCPCS: 80053; 81003; 83690; 84703; 85025; 96374; 99284; J2405

== ENCOUNTER → 2023-06-01 15:00 | Outpatient (BNVA) | payer MEDICAID, SELFPAY | PROVIDERS: PCP Family Medicine; Visit Provider Surgery | DX: R19.7 Diarrhea, unspecified (principal) | CPT/HCPCS: 83630; 87338; 87493; 87506 ==

== ENCOUNTER 2023-06-21 11:46 | Outpatient (CLI) | payer MEDICAID, SELFPAY ==
--- NOTE | 2023-06-21 | ECG_ITS ---
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 Interpretive Statements NAME OF STUDY: TREADMILL STRESS TEST INDICATION: Dyspnea on exertion Baseline blood pressure and heart rate were not recorded. EKG showed sinus tachycardia, normal axis normal ST-Ts. The patient exercised for 3 minutes on a standard Nam protocol. Patient attained a maximum heart rate of 159 beats per minute(91% of the maximum predicted heart rate) with a blood pressure at the peak exercise of 113/81 mm Hg. The EKG at the peak exercise revealed sinus tachycardia with no significant ST-T wave changes. Patient did not have any chest pain or any significant arrhythmis with the exercise During the recovery phase, there were no new changes. Blood pressure at the end of the recovery phase was 121/61 mm Hg with a heart rate of 100 beats per minute. CONCLUSION: 1. Normal EKG response to treadmill exercise. This is of limited sensitivity due to poor functional capacity and baseline tachycardia. 2. No exercise-induced chest pain or cardiac arrhythmia. 3. Decreased exercise tolerance, attained a maximum of 4.6 METs. 4. Exaggerated heart rate response to exercise. Electronically Signed On 06-22-2023 18:03:33 CDT by Tran Connelly M.D. [id number]
[2023-06-21 12:22] VITALS: BMI 58.6
[2023-06-21 12:48] VITALS: BP 121/61; PULSE 97
== END 2023-06-21 11:47 | disposition home or self-care (01) ==
LOC: CDL 11:47
PROVIDERS: PCP Family Medicine; Visit Provider Family Medicine
DX: R06.00 Dyspnea, unspecified (principal)
CPT/HCPCS: 93017

== ENCOUNTER → 2023-07-05 15:15 | Outpatient (BNVA) | payer MEDICAID, SELFPAY | PROVIDERS: PCP Family Medicine; Visit Provider Family Medicine | DX: R19.7 Diarrhea, unspecified (principal) | CPT/HCPCS: 86003 ==

== ENCOUNTER → 2023-08-02 11:12 | Outpatient (BNVA) | payer MEDICAID, SELFPAY | PROVIDERS: PCP Family Medicine; Visit Provider Family Medicine | DX: R19.7 Diarrhea, unspecified (principal); G47.00 Insomnia, unspecified | CPT/HCPCS: 86003; 86008 ==

== ENCOUNTER 2023-08-07 02:02 | Emergency (ER) | payer MEDICAID, SELFPAY ==
[2023-08-07 02:09] VITALS: BP 110/80; PULSE 100; RESP 16; TEMP 37.1; O2SAT 98; BMI 54.8
[2023-08-07 02:22] VITALS: BP 110/85; PULSE 84; RESP 18; O2SAT 97
[2023-08-07] MEDS: dexamethasone 4 mg/mL INJ 8 MG IVP (02:25)
[2023-08-07] MEDS: diphenhydrAMINE 50 mg/mL SDV 1mL IVP (02:26)
[2023-08-07] MEDS: famotidine 20 mg/2 mL INJ IVP (02:26)
--- NOTE | 2023-08-07 02:34 | PC.NURSE ---
pts family at bedside, pt resting in bed in no acute distress at this time
--- NOTE | 2023-08-07 02:45 | ED_ITS ---
HPI - Allergic Reaction General: Chief complaint: Allergic Reaction Stated complaint: allergic reaction Time Seen by Provider: 08/07/23 02:08 History of Present Illness: HPI narrative: 48-year-old female who 2 nights ago now began to get an urticarial rash that was widespread across her body. Arms, legs, chest and back are involved. Seems to be worse in the creases of her skin. Her palms are now involved. She notes that her palms are the most itchy. She used some Benadryl cream this evening without any improvement. No respiratory problems. No facial or tongue swelling. She has not used any new lotions or detergents or soaps etc. No new foods. No new medications. She notes that she was at a friend's house who has lots of animals prior to this starting. Associated symptoms: Deny abdominal pain, hoarseness, nausea or vomiting Review of Systems Const: Denies: fever(s) Eyes: Denies: change in vision ENMT: Denies: throat pain, odynophagia, hoarseness or swelling of lips/tongue Card: Denies: chest pain or palpitations Resp: Denies: dyspnea, productive cough or non-productive cough GI: Denies: abdominal pain, nausea or vomiting Skin/Breast: Reports: rash, pruritus and erythema PFSH ED PFSH: Medical History Arthritis, midfoot Borderline personality disorder Chronic pain Chronic post-traumatic stress disorder Diarrhea Encounter for pre-bariatric surgery counseling and education Generalized anxiety disorder GERD (gastroesophageal reflux disease) Hot flashes due to menopause Major depressive disorder, recurrent, moderate Nicotine dependence, cigarettes, uncomplicated Obesity Plantar fasciitis, bilateral Posterior right knee pain Postmenopausal Psychiatric care Surgical History History of 3 sections 1994,2000,2002 History of dilation and curettage (~2012) History of esophagogastroduodenoscopy (EGD) 2 yrs ago History of foot surgery BILATERAL- PLANTAR FASCITIS RELEASE History of hysterectomy (~2018) History of laparoscopic cholecystectomy (~2014) History of tubal ligation (~2002) Hx of colonoscopy Family History Father Hypertension Heart disease Diabetes Mother Thyroid condition Diabetes Obesity Grandmother Obesity Other Helicobacter pylori gastritis Denies family history of Anesthesia complication Bleeding disorder Social History Smoking and tobacco status: current every day smoker cigarettes Packs smoked per day: 0.75 Years cigarettes smoked: 25 and e-cigarettes E-Cigarette Details: vaporizer device Alcohol intake: never Substance/Drug Use: never Do you think of yourself as: Decline to Answer Flakita/Moravian: None Physical Exam Const: COMMON NORMALS: no acute distress GENERAL APPEARANCE: cooperative; not ill appearing and not frail appearing HENMT: COMMON NORMALS: normocephalic, atraumatic and Normal external nose present HEAD & SCALP: normocephalic and atraumatic FACE & SINUS: normal facial exam and face symmetric NOSE: Normal external nose present Eye: COMMON NORMALS: Equal, round and reactive pupils present and EOMs intact bilaterally PUPIL: Yes Equal, round and reactive pupils present Neck/C-Spine: GENERAL: Yes trachea midline Chest: CHEST: Yes Symmetrical chest wall rise Resp: COMMON NORMALS: normal respiratory effort, No retractions, No use of accessory muscles and clear to auscultation bilaterally AUSCULTATION: clear to auscultation bilaterally Cardio: COMMON NORMALS: regular rate and regular rhythm RATE: regular rate RHYTHM: regular rhythm GI: COMMON NORMALS: Normal to inspection, nondistended, normoactive bowel sounds present Extremity: COMMON NORMALS: no pedal edema Neuro: ARIA COMA SCALE: document GCS findings Crapo coma scale eye opening: Spontaneous Aria coma scale verbal response: Orientated Crapo coma scale motor response: Obey commands Crapo coma scale total score: 15 SENSORY EXAM: Yes extremities (intact) Psych: COMMON NORMALS: speech normal SPEECH: Yes normal speech Skin: NARRATIVE SKIN EXAM: Widespread urticarial rash. Present on palms. Present on all extremities, patient reports on chest and back as well. Course Vital Signs: Vital signs: Vital Signs Temperature 98.7 F 08/07/23 02:09 Pulse Rate 84 08/07/23 02:22 Respiratory Rate 18 08/07/23 02:22 Blood Pressure 114/83 08/07/23 03:28 Pulse Oximetry 97 08/07/23 03:28 Oxygen Delivery Me thod Room Air 08/07/23 03:28 MDM - Allergic Reaction Medical Decision Making Urticarial areas look improved. She still has itchy palms, but these are improved as well. Benadryl caused some restlessness, which is improved with Ativan. She will be allowed home. Medrol Dosepak. Scheduled Benadryl for the next 48 hours, return for any worsening symptoms. No radiology studies performed this visit Discharge Plan Discharge Patient Disposition: Home Clinical Impression: Allergic reaction Condition: Stable Prescriptions: New Medrol (Arthur) 4 mg tablets,dose pack See Rx Instructions .ROUTE .COMPLEX Qty: 21 0RF Rx Instructions: orally per package directions No Action albuterol sulfate 90 mcg/actuation HFA aerosol inhaler 2 puff inhalation Q6H PRN (Reason: shortness of breath or wheezing) Qty: 8.5 2RF (DME) CPAP mask, tubing, and supplies See Rx Instructions .Route .MEDSUPPLY Qty: 1 0RF Rx Instructions: As directed tizanidine 4 mg tablet 4 mg PO .q hs PRN (Reason: muscle spasticity) Qty: 30 1RF naproxen [Naprosyn] 500 mg tablet 500 mg PO BID Qty: 60 1RF fluticasone propionate [Flonase Allergy Relief] 50 mcg/actuation spray,suspension 2 spray intranasal DAILY Qty: 16 2RF Rx Instructions: administer into each nostril Spiriva with HandiHaler 18 mcg capsule, w/inhalation device 1 cap inhalation DAILY Qty: 60 3RF Rx Instructions: puncture 1 cap using device; one dose = 2 inhalations budesonide-formoterol [Symbicort] 160-4.5 mcg/actuation HFA aerosol inhaler 2 puff inhalation Q12H Qty: 10.2 3RF pantoprazole [Protonix] 40 mg tablet,delayed release (DR/EC) 40 mg PO BID 42 Days Qty: 84 1RF pantoprazole 40 mg tablet,delayed release (DR/EC) See Rx Instructions .ROUTE .COMPLEX Qty: 30 3RF Dose Instruction: TAKE 1 TABLET BY MOUTH ONCE DAILY IN THE MORNING . APPOINTMENT REQUIRED FOR FUTURE REFILLS Rx Instructions: TAKE 1 TABLET BY MOUTH ONCE DAILY IN THE MORNING . APPOINTMENT REQUIRED FOR FUTURE REFILLS Victoza 2-Arthur 0.6 mg/0.1 mL (18 mg/3 mL) pen injector 0.6 mg SUBCUT DAILY Qty: 6 0RF trazodone 50 mg tablet 50 mg PO .q hs Qty: 30 0RF tizanidine 4 mg tablet 4 mg PO BID PRN (Reason: muscle spasticity) Qty: 60 0RF ferrous gluconate 324 mg (37.5 mg iron) tablet 324 mg PO BID Qty: 60 3RF venlafaxine [Effexor XR] 75 mg capsule,extended release 24hr 75 mg PO QAM Qty: 30 6RF venlafaxine [Effexor XR] 150 mg capsule,extended release 24hr 150 mg PO QAM Qty: 30 6RF hydroxyzine pamoate 50 mg capsule 50 mg PO BID PRN (Reason: anxiety) Qty: 30 3RF estradiol 1 mg tablet See Rx Instructions .ROUTE .COMPLEX Qty: 30 2RF Dose Instruction: Take 1 tablet by mouth once daily Rx Instructions: Take 1 tablet by mouth once daily hydrocodone-acetaminophen 5-325 mg tablet 1 tab PO Q6H PRN (Reason: pain) Qty: 14 0RF ondansetron 4 mg tablet,disintegrating 4 mg PO Q6H PRN (Reason: nausea and vomiting) Qty: 14 0RF Discharge Orders: Discharge ED (Routine); Ordered 08/07/23 Ordered By: aDrell Jones Referrals: Tatyana Bhatia DO [Primary Care Provider] - 1-3 days Patient Instructions: Urticaria (ED), General Allergic Reaction (ED) Activity Restrictions/Additional Instructions: Medication as directed. Take Benadryl 4 times daily, 25 mg, for the next 48 hours scheduled, then as needed following. Return for worsening itch, tongue swelling, throat swelling, shortness of breath, other concerning symptoms. Use a nonfragrance lotion on itchy dry parts of your skin. Follow-up with your doctor this week. 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
[2023-08-07 03:28] VITALS: BP 114/83; O2SAT 97
[2023-08-07] MEDS: LORazepam 2 mg/mL INJ 1 mL 1 MG IVP (03:32)
[2023-08-07 04:09] VITALS: BP 138/99; PULSE 89; RESP 17; O2SAT 96
== END 2023-08-07 04:14 | disposition home or self-care (01) ==
PROVIDERS: Emergency Provider Emergency Medicine; PCP Family Medicine
DX: T78.40XA Allergy, unspecified, initial encounter (principal); F17.210 Nicotine dependence, cigarettes, uncomplicated; X58.XXXA Exposure to other specified factors, initial encounter
CPT/HCPCS: 96374; 96375; 99284; J1100; J1200; J2060; J3490

== ENCOUNTER 2023-08-08 10:10 | Emergency (ER) | payer MEDICAID, SELFPAY ==
[2023-08-08] VITALS (7 sets, daily range): BP systolic 126–180; BP diastolic 88–123; PULSE 92–104; RESP 16–18; TEMP 36.6; O2SAT 98–100; BMI 54.8
--- NOTE | 2023-08-08 10:14 | XR_ITS ---
WS: [id number] XR chest 1V portable [id number] REASON FOR EXAM: cp FINDINGS: The chest is unchanged compared to the 09/27/2022. The heart and the mediastinum are within normal limits. Normal thoracic aorta. Calcified granulomatous disease in both hemithoraces. No active pulmonary parenchymal or pleural disease. Bony thorax is intact without significant focal abnormality. IMPRESSION: Stable chest without acute abnormality.
--- NOTE | 2023-08-08 10:16 | ECG_ITS ---
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 Measurements Intervals [place] Rate: 109 P: 33 WV: 134 QRS: 59 QRSD: 85 T: 42 QT: 319 QTc: 431 Interpretive Statements SINUS TACHYCARDIA LOW QRS VOLTAGE IN PRECORDIAL LEADS [QRS DEFLECTION < 1.0 mV IN CHEST LEADS] NONSPECIFIC T-WAVE ABNORMALITY ABNORMAL RHYTHM ECG Compared to ECG 09/27/2022 16:31:47 T-wave abnormality now present Sinus rhythm no longer present Electronically Signed On 08-08-2023 21:30:40 CDT by Tran Connelly M.D. [id number]
[2023-08-08 10:37] LABS: Basophils % 0.2 %; Eosinophils % 0.2 %; Lymphocytes # 2.1 10^3/uL (0.8-4.8); Mean Corpuscular HGB Conc 32.1 g/dL (30-55); Mean Corpuscular Hemoglobin 27.2 pg (27-33); Mean Corpuscular Volume 84.5 fl (85-98); Monocytes # 0.6 10^3/uL (0.2-0.9); Monocytes % 7.2 %; Neutrophils # 5.88 10^3/uL (1.8-7.7); Neutrophils % 68.1 %; Nucleated Red Blood Cells % 0 %; Platelet Count 338 10^3/cmm (157-399); Red Blood Count 4.97 10^6/uL (3.85-5.65); Red Cell Distribution Width 15.6 % (12.1-15.1); White Blood Count 8.65 10^3/uL (3.29-11.43)
--- NOTE | 2023-08-08 10:49 | ED_ITS ---
HPI - Chest Pain General: Chief Complaint: Chest Pain Stated Complaint: chest pain Time Seen by Provider: 08/08/23 10:42 Source: patient Mode of arrival: ambulatory Limitations: no limitations History of Present Illness: 48-year-old female states she woke up this morning with burning pain in her chest. She states she has had reflux multiple times in the past and feels similar to that. She denies any severe pain she denies any shortness of breath she denies any vomiting or diarrhea. Associated symptoms: Deny abdominal pain, dyspnea, fever(s), nausea or vomiting Review of Systems Const: Denies: fever(s) or chills ENMT: Denies: throat pain or dental pain Card: Denies: chest pain Resp: Denies: dyspnea GI: Denies: abdominal pain, nausea, vomiting or diarrhea Musc: Denies: neck pain or back pain Skin/Breast: Denies: rash Neuro: Denies: headache(s) PFSH ED PFSH: Medical History Arthritis, midfoot Borderline personality disorder Chronic pain Chronic post-traumatic stress disorder Diarrhea Encounter for pre-bariatric surgery counseling and education Generalized anxiety disorder GERD (gastroesophageal reflux disease) Hot flashes due to menopause Major depressive disorder, recurrent, moderate Nicotine dependence, cigarettes, uncomplicated Obesity Plantar fasciitis, bilateral Posterior right knee pain Postmenopausal Psychiatric care Surgical History History of 3 sections 1994,1999,2002 History of dilation and curettage (~2012) History of esophagogastroduodenoscopy (EGD) 2 yrs ago History of foot surgery BILATERAL- PLANTAR FASCITIS RELEASE History of hysterectomy (~2018) History of laparoscopic cholecystectomy (~2014) History of tubal ligation (~2002) Hx of colonoscopy Family History Father Hypertension Heart disease Diabetes Mother Thyroid condition Diabetes Obesity Grandmother Obesity Other Helicobacter pylori gastritis Denies family history of Anesthesia complication Bleeding disorder Social History Smoking and tobacco status: current every day smoker cigarettes Packs smoked per day: 0.75 Years cigarettes smoked: 25 and e-cigarettes E-Cigarette Details: vaporizer device Alcohol intake: never Substance/Drug Use: never Do you think of yourself as: Decline to Answer Flakita/Caodaism: None Physical Exam Const: COMMON NORMALS: no acute distress, patient oriented x3 and healthy appearing HENMT: COMMON NORMALS: normocephalic and atraumatic HEAD & SCALP: normocephalic and atraumatic Neck/C-Spine: COMMON NORMALS: full ROM and supple Chest: COMMONS NORMALS: normal inspection of the chest and normal palpation of entire chest wall Resp: COMMON NORMALS: normal respiratory effort, No retractions, No use of accessory muscles and clear to auscultation bilaterally AUSCULTATION: clear to auscultation bilaterally Cardio: COMMON NORMALS: regular rate, regular rhythm and No murmurs present (Cardio) RATE: regular rate RHYTHM: regular rhythm GI: COMMON NORMALS: Normal to inspection, nondistended, normoactive bowel sounds present, Soft to palpation, non-tender and no masses PALPATION: Yes Soft to palpation Extremity: COMMON NORMALS: normal to inspection and full ROM Neuro: COMMON NORMALS: patient oriented x3, moves all extremities and no focal motor deficits Psych: COMMON NORMALS: mental status grossly normal, Normal thought process present and cooperative THOUGHT PROCESS: Normal thought process present Skin: COMMON NORMALS: no rashes or lesions noted and no wounds GENERAL SKIN EXAM: no rashes or lesions noted Course Vital Signs: Vital signs: Vital Signs Temperature 97.8 F 08/08/23 11:03 Pulse Rate 92 08/08/23 13:35 Respiratory Rate 16 08/08/23 13:35 Blood Pressure 126/88 08/08/23 13:35 Pulse Oximetry 98 08/08/23 13:35 Oxygen Delivery Me thod Room Air 08/08/23 11:35 MDM - Chest Pain Medical Decision Making Patient presents for chest pains atypical in nature troponins EKG and x-ray are normal she has no signs of acute coronary syndrome abdominal exam here is benign she has no signs of acute surgical abdomen. No signs of dissection or pulmonary embolism she is to follow-up with PCP and return if worsening she understands agrees to plan. Medical Records I reviewed the patient's medical records. Lab Data I reviewed the patient's lab results. 08/08/23 10:30 08/08/23 10:30 Laboratory Results WBC 8.65 10^3/uL (3.29-11.43) 08/08/23 10:30 RBC 4.97 10^6/uL (3.85-5.65) 08/08/23 10:30 Hgb 13.50 g/dL (11.27-16.99) 08/08/23 10:30 Hct 42.0 % (36-47) 08/08/23 10:30 MCV 84.5 fl (85-98) L 08/08/23 10:30 MCH 27.2 pg (27-33) 08/08/23 10:30 MCHC 32.1 g/dL (30-55) 08/08/23 10:30 RDW 15.6 % (12.1-15.1) H 08/08/23 10:30 Plt Count 338 10^3/cmm (157-399) 08/08/23 10:30 MPV 10.0 fL (7.4-10.4) 08/08/23 10:30 Neut % (Auto) 68.1 % 08/08/23 10:30 Lymph % (Auto) 24.0 % 08/08/23 10:30 Navarro % (Auto) 7.2 % 08/08/23 10:30 Eos % (Auto) 0.2 % 08/08/23 10:30 Baso % (Auto) 0.2 % 08/08/23 10:30 Neut # (Auto) 5.88 10^3/uL (1.8-7.7) 08/08/23 10:30 Lymph # (Auto) 2.1 10^3/uL (0.8-4.8) 08/08/23 10:30 Navarro # (Auto) 0.6 10^3/uL (0.2-0.9) 08/08/23 10:30 Eos # (Auto) 0.0 10^3/uL (0.0-0.8) 08/08/23 10:30 Baso # (Auto) 0.0 10^3/uL (0.0-0.1) 08/08/23 10:30 Nucleated RBC % (auto) 0 % 08/08/23 10:30 Nucleated RBCs # 0.0 /100WBC 08/08/23 10:30 Sodium 138 mmol/L (136-145) 08/08/23 10:30 Potassium 3.4 mmol/L (3.5-5.1) L 08/08/23 10:30 Chloride 102 mmol/L (98-107) 08/08/23 10:30 Carbon Dioxide 24 mmol/L (22-29) 08/08/23 10:30 Anion Gap 15.4 (5-19) 08/08/23 10:30 BUN 10 mg/dL (6-20) 08/08/23 10:30 Creatinine 0.8 mg/dL (0.5-0.9) 08/08/23 10:30 GFR Calculation 77.2 mL/min (90-130) L 08/08/23 10:30 Glucose 111 mg/dL (65-115) 08/08/23 10:30 Calculated Osmolality 286 mOsm/kg (285-295) 08/08/23 10:30 Calcium 9.3 mg/dL (8.5-10.5) 08/08/23 10:30 Total Bilirubin 0.2 mg/dL (0.15-1.2) 08/08/23 10:30 AST 20 U/L (0-32) 08/08/23 10:30 ALT 35 U/L (0-33) H 08/08/23 10:30 Alkaline Phosphatase 90 U/L (35-105) 08/08/23 10:30 Troponin T Baseline 6 ng/L (0-10) 08/08/23 10:30 Troponin T 120 Minute 6.00 ng/L (0-10) 08/08/23 12:19 Delta Troponin T 0 ABS# (0-10) 08/08/23 12:19 Total Protein 6.6 g/dL (6.6-8.7) 08/08/23 10:30 Albumin 4.1 g/dL (3.5-5.2) 08/08/23 10:30 Globulin 2.5 g/dL (1.3-4.6) 08/08/23 10:30 Lipase 50 U/L (13-60) 08/08/23 10:30 All radiology interpretation(s) finalized by discharge EKG Data EKG 1: I personally reviewed and interpreted this EKG as follows: EKG interpretation date: 08/08/23 EKG interpretation time: 10:16 Interpretation: sinus tach hr [address] or t wave abnormalities qrs 85 qtc 383 EKG 2: I personally reviewed and interpreted this EKG as follows: EKG interpretation date: 08/08/23 EKG interpretation time: 12:14 Interpretation: nsr hr [address] or t wave abnormalities qrs 97 qtc 392 Discharge Plan Discharge Patient Disposition: Home Clinical Impression: Chest pain Condition: Stable Prescriptions: No Action albuterol sulfate 90 mcg/actuation HFA aerosol inhaler 2 puff inhalation Q6H PRN (Reason: shortness of breath or wheezing) Qty: 8.5 2RF (DME) CPAP mask, tubing, and supplies See Rx Instructions .Route .MEDSUPPLY Qty: 1 0RF Rx Instructions: As directed tizanidine 4 mg tablet 4 mg PO .q hs PRN (Reason: muscle spasticity) Qty: 30 1RF fluticasone propionate [Flonase Allergy Relief] 50 mcg/actuation spray,suspension 2 spray intranasal DAILY Qty: 16 2RF Rx Instructions: administer into each nostril Spiriva with HandiHaler 18 mcg capsule, w/inhalation device 1 cap inhalation DAILY Qty: 60 3RF Rx Instructions: puncture 1 cap using device; one dose = 2 inhalations budesonide-formoterol [Symbicort] 160-4.5 mcg/actuation HFA aerosol inhaler 2 puff inhalation Q12H Qty: 10.2 3RF Victoza 2-Arthur 0.6 mg/0.1 mL (18 mg/3 mL) pen injector 0.6 mg SUBCUT DAILY Qty: 6 0RF trazodone 50 mg tablet 50 mg PO .q hs Qty: 30 0RF venlafaxine [Effexor XR] 75 mg capsule,extended release 24hr 75 mg PO QAM Qty: 30 6RF venlafaxine [Effexor XR] 150 mg capsule,extended release 24hr 150 mg PO QAM Qty: 30 6RF hydroxyzine pamoate 50 mg capsule 50 mg PO BID PRN (Reason: anxiety) Qty: 30 3RF hydrocodone-acetaminophen 5-325 mg tablet 1 tab PO Q6H PRN (Reason: pain) Qty: 14 0RF methylprednisolone [Medrol (Arthur)] 4 mg tablets,dose pack See Rx Instructions .ROUTE .COMPLEX Qty: 21 0RF Rx Instructions: orally per package directions estradiol 1 mg tablet 1 mg PO DAILY pantoprazole 40 mg tablet,delayed release (DR/EC) 40 mg PO BID Naprosyn 500 mg tablet 500 mg PO BID PRN (Reason: INFLAMATION) Discharge Orders: Discharge ED (Routine); Ordered 08/08/23 Ordered By: Indy Nation Referrals: Tatyana Bhatia DO [Primary Care Provider] - 1-3 days Discharge Diet: Advance as tolerated Discharge Activity: Resume usual activity Patient Instructions: Chest Pain (ED) Coding Level of Care Code 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
[2023-08-08 10:53] LABS: Troponin(5th) Baseline 6 ng/L (0-10)
[2023-08-08] MEDS: lidocaine 2% viscous 15 ML, aluminum-mag hydrox-simethicon 30 ML, sucralfate oral liq 1 GM PO (10:56)
[2023-08-08 10:57] LABS: Alanine Aminotransferase 35 U/L (0-33); Albumin Level 4.1 g/dL (3.5-5.2); Alkaline Phosphatase 90 U/L (35-105); Anion Gap 15.4 (5-19); Aspartate Amino Transferase 20 U/L (0-32); Blood Urea Nitrogen 10 mg/dL (6-20); Calcium 9.3 mg/dL (8.5-10.5); Carbon Dioxide 24 mmol/L (22-29); Chloride 102 mmol/L (98-107); Globulin 2.5 g/dL (1.3-4.6); Glomerular Filtration Rate 77.2 mL/min (90-130); Glucose 111 mg/dL (65-115); Lipase 50 U/L (13-60); Osmolality Calculated 286 mOsm/kg (285-295); Potassium 3.4 mmol/L (3.5-5.1); Sodium 138 mmol/L (136-145); Total Bilirubin 0.2 mg/dL (0.15-1.2); Total Protein 6.6 g/dL (6.6-8.7)
[2023-08-08] MEDS: ondansetron 2 mg/ML SDV 2 mL 4 MG IM (10:58)
[2023-08-08] MEDS: morphine 4 mg/mL SDV 1 mL IM (11:44)
--- NOTE | 2023-08-08 12:14 | ECG_ITS ---
[facility] Test Date: 2023-08-08 Pat Name: Judy Dietrich Department: Room: Gender: Female Galley Cook: : 1975 Requested By: Indy Nation Order Number: [id number] Coni MD: Tran Connelly M.D. Measurements Intervals [place] Rate: 94 P: 58 OK: 137 QRS: 64 QRSD: 97 T: 55 QT: 341 QTc: 426 Interpretive Statements SINUS RHYTHM WARNING: DATA QUALITY MAY AFFECT INTERPRETATION Compared to ECG 09/27/2022 16:31:47 No significant changes Electronically Signed On 08-08-2023 21:37:02 CDT by Tran Connelly M.D. [id number]
[2023-08-08] MEDS: metoclopramide 5 mg/mL SDV 2 mL 10 MG IM (12:55)
[2023-08-08] MEDS: diphenhydrAMINE 50 mg/mL SDV 1mL IM (12:55)
[2023-08-08 13:22] LABS: Troponin 5 2HR Delta 0 ABS# (0-10)
== END 2023-08-08 13:36 | disposition home or self-care (01) ==
PROVIDERS: Emergency Provider Emergency Medicine; PCP Family Medicine
DX: R07.9 Chest pain, unspecified (principal); F17.210 Nicotine dependence, cigarettes, uncomplicated; F17.290 Nicotine dependence, other tobacco product, uncomplicated
CPT/HCPCS: 36415; 71045; 80053; 83690; 84484; 85025; 93005; 96372; 99285; J1200; J2270; J2405; J2765

== ENCOUNTER 2023-09-27 13:12 | Emergency (ER) | payer MEDICAID, SELFPAY ==
--- NOTE | 2023-09-27 13:15 | XR_ITS ---
WS: [id number] Portable AP upright chest, 09/27/2023 Clinical Data: cough Comparison: Portable chest, 08/08/2023 Findings: No nodules, masses or effusions are seen. The heart is normal. The pulmonary vascularity is not increased. No pneumonia or pneumothorax is seen. Impression: Negative chest.
[2023-09-27 13:27] VITALS: BP 126/85; PULSE 107; RESP 16; TEMP 36.7; O2SAT 97; BMI 54.0
--- NOTE | 2023-09-27 13:53 | ED_ITS ---
HPI - SOB/Dyspnea General: Chief Complaint: Shortness of Breath/Dyspnea Stated Complaint: cough Time Seen by Provider: 09/27/23 13:40 Source: patient Mode of arrival: ambulatory Limitations: no limitations History of Present Illness: HPI Narrative: 48-year-old female states over the last 3 days she has been having some increasing cough along with wheezing. She does have a history of COPD she states she has been doing her breathing treatments which does help. Her cough has been nonproductive she denies any fevers. She denies any pain anywhere she has had sick contact states that she has been around her grandkids who have been sick. Associated symptoms: Deny abdominal pain, chest pain, fever(s), nausea or vomiting Review of Systems Const: Denies: fever(s), chills, body aches or change in appetite ENMT: Denies: throat pain or dental pain Card: Denies: chest pain Resp: Reports: dyspnea, non-productive cough and wheezing GI: Denies: abdominal pain, nausea, vomiting or diarrhea : Denies: dysuria Musc: Denies: neck pain or back pain Skin/Breast: Denies: rash Neuro: Denies: headache(s) PFSH ED PFSH: Medical History Arthritis, midfoot Borderline personality disorder Chronic pain Chronic post-traumatic stress disorder Diarrhea Encounter for pre-bariatric surgery counseling and education Generalized anxiety disorder GERD (gastroesophageal reflux disease) Hot flashes due to menopause Major depressive disorder, recurrent, moderate Nicotine dependence, cigarettes, uncomplicated Obesity Plantar fasciitis, bilateral Posterior right knee pain Postmenopausal Psychiatric care Surgical History History of 3 sections 1993,1999,2002 History of dilation and curettage (~2012) History of esophagogastroduodenoscopy (EGD) 2 yrs ago History of foot surgery BILATERAL- PLANTAR FASCITIS RELEASE History of hysterectomy (~2018) History of laparoscopic cholecystectomy (~2014) History of tubal ligation (~2002) Hx of colonoscopy Family History Father Hypertension Heart disease Diabetes Mother Thyroid disease Diabetes Obesity Grandmother Obesity Other Helicobacter pylori gastritis Denies family history of Anesthesia complication Bleeding disorder Social History Smoking and tobacco/nicotine status: current every day tobacco/nicotine user cigarettes Packs smoked per day: 0.75 Years cigarettes smoked: 25 and e- cigarettes E-Cigarette Details: vaporizer device Alcohol intake: never Substance/Drug Use: never Do you think of yourself as: Decline to Answer Flakita/Evangelical: None Physical Exam Const: COMMON NORMALS: no acute distress, patient oriented x3 and healthy appearing HENMT: COMMON NORMALS: normocephalic and atraumatic HEAD & SCALP: normocephalic and atraumatic Eye: COMMON NORMALS: conjunctivae normal CONJUNCTIVA: Yes conjunctivae normal Neck/C-Spine: COMMON NORMALS: full ROM and supple Chest: COMMONS NORMALS: normal inspection of the chest and normal palpation of entire chest wall Resp: COMMON NORMALS: normal respiratory effort, No retractions and No use of accessory muscles AUSCULTATION: wheezes Cardio: COMMON NORMALS: regular rate, regular rhythm and No murmurs present (Cardio) RATE: regular rate RHYTHM: regular rhythm GI: INSPECTION: Yes normal to inspection Extremity: COMMON NORMALS: normal to inspection and full ROM Neuro: COMMON NORMALS: patient oriented x3, moves all extremities and no focal motor deficits Psych: COMMON NORMALS: mental status grossly normal, Normal thought process present and cooperative THOUGHT PROCESS: Normal thought process present Skin: COMMON NORMALS: no rashes or lesions noted and no wounds GENERAL SKIN EXAM: no rashes or lesions noted Course Vital Signs: Vital signs: Vital Signs Temperature 98.1 F 09/27/23 13:27 Pulse Rate 97 09/27/23 14:35 Respiratory Rate 18 09/27/23 14:35 Blood Pressure 141/83 09/27/23 14:35 Pulse Oximetry 94 09/27/23 14:35 Oxygen Delivery Me thod Room Air 09/27/23 14:20 MDM - SOB/Dyspnea Medical Decision Making Patient presents here with cough wheezing likely upper respiratory infection with COPD exacerbation that he ever breathing treatment along with steroids flu COVID-negative chest x-ray shows no pneumonia she has been in no distress here she is stable for discharge she is follow-up with PCP and return if worsening. Medical Records I reviewed the patient's medical records. Lab Data I reviewed the patient's lab results. Labs/Radiology: Laboratory Results Influenza Type A Ag negative (Negative) 09/27/23 13:46 Influenza Type B Ag negative (Negative) 09/27/23 13:46 SARS-CoV-2 Ag (Rapid) negative (Negative) 09/27/23 13:46 All radiology interpretation(s) finalized by discharge EKG Data EKG 1: I personally reviewed and interpreted this EKG as follows: EKG Interpretation Date: 09/27/23 EKG interpretation time: 13:31 Interpretation: sinus tach hr [address] or t wave abnormalities qrs 89 qtc 421 Discharge Plan Discharge Patient Disposition: Home Clinical Impression: Upper respiratory infection, COPD (chronic obstructive pulmonary disease) Condition: Stable Prescriptions: No Action (DME) CPAP mask, tubing, and supplies See Rx Instructions .Route .MEDSUPPLY Qty: 1 0RF Rx Instructions: As directed tizanidine 4 mg tablet 4 mg PO .q hs PRN (Reason: muscle spasticity) Qty: 30 1RF fluticasone propionate [Flonase Allergy Relief] 50 mcg/actuation spray,suspension 2 spray intranasal DAILY Qty: 16 2RF Rx Instructions: administer into each nostril Spiriva with HandiHaler 18 mcg capsule, w/inhalation device 1 cap inhalation DAILY Qty: 60 3RF Rx Instructions: puncture 1 cap using device; one dose = 2 inhalations budesonide-formoterol [Symbicort] 160-4.5 mcg/actuation HFA aerosol inhaler 2 puff inhalation Q12H Qty: 10.2 3RF Victoza 3-Arthur 0.6 mg/0.1 mL (18 mg/3 mL) pen injector 1.2 mg SUBCUT DAILY Qty: 9 0RF estradiol 1 mg tablet See Rx Instructions .ROUTE .COMPLEX Qty: 30 0RF Dose Instruction: Take 1 tablet by mouth once daily Rx Instructions: Take 1 tablet by mouth once daily venlafaxine [Effexor XR] 75 mg capsule,extended release 24hr 75 mg PO QAM Qty: 30 6RF venlafaxine [Effexor XR] 150 mg capsule,extended release 24hr 150 mg PO QAM Qty: 30 6RF hydroxyzine pamoate 50 mg capsule 50 mg PO BID PRN (Reason: anxiety) Qty: 30 3RF trazodone 50 mg tablet See Rx Instructions .ROUTE .COMPLEX Qty: 30 0RF Dose Instruction: TAKE 1 TABLET BY MOUTH EVERY DAY AT BEDTIME Rx Instructions: TAKE 1 TABLET BY MOUTH EVERY DAY AT BEDTIME pantoprazole 40 mg tablet,delayed release (DR/EC) 40 mg PO BID Qty: 180 0RF albuterol sulfate [Ventolin HFA] 90 mcg/actuation HFA aerosol inhaler See Rx Instructions .ROUTE .COMPLEX Qty: 18 0RF Dose Instruction: INHALE 2 PUFFS BY MOUTH EVERY 6 HOURS NEEDED FOR SHORTNESS OF BREATH FOR WHEEZING Rx Instructions: INHALE 2 PUFFS BY MOUTH EVERY 6 HOURS NEEDED FOR SHORTNESS OF BREATH FOR WHEEZING hydrocodone-acetaminophen 5-325 mg tablet 1 tab PO Q6H PRN (Reason: pain) Qty: 14 0RF methylprednisolone [Medrol (Arthur)] 4 mg tablets,dose pack See Rx Instructions .ROUTE .COMPLEX Qty: 21 0RF Rx Instructions: orally per package directions Naprosyn 500 mg tablet 500 mg PO BID PRN (Reason: INFLAMATION) Discharge Orders: Discharge ED (Routine); Ordered 09/27/23 Ordered By: Indy Nation Referrals: Tatyana Bhatia DO [Primary Care Provider] - 1-3 days Discharge Diet: Advance as tolerated Discharge Activity: Resume usual activity Patient Instructions: Upper Respiratory Infection (ED), COPD (Chronic Obstructive Pulmonary Disease) (ED) Coding Level of Care Code 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
[2023-09-27 14:04] VITALS: PULSE 101; RESP 16; O2SAT 98
[2023-09-27] MEDS: ipratropium-albuterol 3 mL Neb INHALATION (14:04)
[2023-09-27 14:07] VITALS: PULSE 100
[2023-09-27 14:17] LABS: Influenza A by IFA negative (Negative); Influenza B by IFA negative (Negative)
[2023-09-27 14:18] LABS: SARS Covid-2 Antigen negative (Negative)
[2023-09-27 14:20] VITALS: BP 141/83; PULSE 100; RESP 20; O2SAT 96
[2023-09-27] MEDS: dexamethasone 10 mg/mL INJ IM (14:23)
[2023-09-27 14:35] VITALS: BP 141/83; PULSE 97; RESP 18; O2SAT 94
== END 2023-09-27 14:38 | disposition home or self-care (01) ==
PROVIDERS: Emergency Provider Emergency Medicine; PCP Family Medicine
DX: J06.9 Acute upper respiratory infection, unspecified (principal); J44.9 Chronic obstructive pulmonary disease, unspecified; Z11.52 Encounter for screening for COVID-19; F17.210 Nicotine dependence, cigarettes, uncomplicated; F17.290 Nicotine dependence, other tobacco product, uncomplicated
CPT/HCPCS: 71045; 87426; 87804; 94640; 96372; 99284; J1100

== ENCOUNTER → 2023-10-26 10:24 | Outpatient (BNVA) | payer MEDICAID, SELFPAY | PROVIDERS: PCP Family Medicine; Visit Provider Anesthesiology Pain Medicine | DX: G89.29 Other chronic pain; M54.50 Low back pain, unspecified; M50.30 Other cervical disc degeneration, unspecified cervical region | CPT/HCPCS: 99214 ==

== ENCOUNTER 2023-10-28 11:48 | Outpatient (CLI) | payer MEDICAID, SELFPAY ==
--- NOTE | 2023-10-28 11:52 | MM_ITS ---
WS: [id number] Bilateral screening 3D tomosynthesis digital mammogram, 10/28/2023 Clinical Data: SCREENING Comparison: 10/05/2022, 08/13/2020. Findings: The breast parenchymal pattern shows fat replacement. No spiculated masses or clustered calcification s are seen. There are no secondary signs of carcinoma. Impression: 1. Negative bilateral mammogram unchanged. 2. Recommend annual screening mammograms. MM/[id number] BIRADS: 1-Negative FOLLOW UP: 1 Year Follow-up The CAD bill checker was used.
== END 2023-10-28 11:49 | disposition home or self-care (01) ==
LOC: RAD 11:49
PROVIDERS: PCP Family Medicine; Visit Provider Family Medicine
DX: Z12.31 Encounter for screening mammogram for malignant neoplasm of breast (principal)
CPT/HCPCS: 77063; 77067

== ENCOUNTER 2023-12-27 08:16 | Outpatient (RCR) | payer MEDICAID, SELFPAY | END 2024-01-19 23:59 | disposition home or self-care (01) | LOC: SPT 08:16 | PROVIDERS: PCP Family Medicine; Visit Provider Anesthesiology Pain Medicine | DX: M54.2 Cervicalgia (principal); G89.29 Other chronic pain | CPT/HCPCS: 97161 ==

== ENCOUNTER → 2024-01-05 14:09 | Outpatient (BNVA) | payer OTHER, SELFPAY | PROVIDERS: PCP Family Medicine; Visit Provider Nurse Practitioner Psychiatric/Mental Health | DX: F41.1 Generalized anxiety disorder (principal) | CPT/HCPCS: 80061; 83036 ==

== ENCOUNTER → 2024-02-14 15:31 | Outpatient (BNVA) | payer MEDICAID, SELFPAY ==
[2024-01-09 15:09] VITALS: BP 127/91; BMI 54.8
== END ==
PROVIDERS: PCP Family Medicine; Referring Provider Family Medicine; Visit Provider Student in an Organized Health Care Education/Training Program
DX: G56.03 Carpal tunnel syndrome, bilateral upper limbs (principal); M65.4 Radial styloid tenosynovitis [de Quervain]
CPT/HCPCS: 73110

== ENCOUNTER 2024-03-21 07:12 | Day surgery (SDC) | payer MEDICAID, SELFPAY ==
[2024-01-09 15:09] VITALS: BP 127/91; BMI 54.8
[2024-03-21] VITALS (10 sets, daily range): BP systolic 127–158; BP diastolic 76–101; PULSE 77–98; RESP 12–18; TEMP 36.2–36.6; O2SAT 92–100; BMI 54.8
[2024-03-21] MEDS: ketorolac 30 mg/mL INJ IVP (07:54)
[2024-03-21] MEDS: sodium chloride 0.9% 1,000 ML 30 ML IV (07:56)
[2024-03-21] MEDS: acetaminophen 1,000 MG/100 ML PIGGYBACK 400 MG IV (07:57)
--- NOTE | 2024-03-21 07:59 | ANES.PREANE2 ---
Pre-Anesthetic Assessment Height/Weight: Height 1.55 m Weight 131.542 kg Temp Pulse Resp BP Pulse Ox O2 Del Method 97.2 F L 98 18 130/100 99 Room Air 03/21/24 07:32 03/21/24 07:32 03/21/24 07:32 03/21/24 07:32 03/21/24 07:32 03/21/24 07:33 Operation Date: 03/21/24 08:45 Proposed Procedures p Carpal Tunnel Release(Left) - Orlando Bruce DO s Dequervain Release(Left) - Orlando Bruce DO Last intake: Intake Last Liquid Date 03/20/24 Last Liquid Time 23:30 Last Solid Date 03/20/24 Last Solid Time 20:30 Social Tobacco and No alcohol Exam alert, oriented x 3, clear to auscultation bilaterally and regular rate & rhythm Airway Submandibular: within normal limits Cervical ROM: within normal limits Mallampati: Class II Pulmonary Chronic Obstructive Pulmonary Disease GI Gastroesophageal Reflux Disease (well controlled ) Metabolic Morbid Obesity Anesthetic Plan ASA status: 3 Anesthesia: General Medications/Allergies Home Medications Medication Instructions Recorded Confirmed Last Taken Type CPAP mask, tubing, and supplies #1 ea 11/08/22 03/05/24 Unknown Rx hydroxyzine pamoate 50 mg capsule 50 mg PO BID PRN anxiety #60 caps 02/20/24 03/21/24 03/20/24 Rx venlafaxine 150 mg 150 mg PO QAM #30 caps 02/20/24 03/21/24 03/20/24 Rx capsule,extended release 24 hr (Effexor XR) venlafaxine 75 mg capsule,extended 75 mg PO QAM #30 caps 02/20/24 03/21/24 03/20/24 Rx release 24 hr (Effexor XR) albuterol sulfate 90 mcg/actuation 2 puff inhalation Q4H PRN 03/05/24 03/19/24 Unknown Rx aerosol inhaler (Ventolin HFA) shortness of breath or wheezing #8.5 grams budesonide-formoterol HFA 160 2 puff inhalation Q12H #10.2 grams 03/05/24 03/21/24 Unknown Rx mcg-4.5 mcg/actuation aerosol inhaler (Symbicort) pantoprazole 40 mg tablet,delayed 40 mg PO BID #180 tabs 03/05/24 03/21/24 03/20/24 Rx release tiotropium bromide 18 mcg capsule 1 cap inhalation DAILY #60 03/05/24 03/21/24 Unknown Rx with inhalation device (Spiriva inhalations with HandiHaler) estradiol 1 mg tablet 1 mg PO DAILY 03/19/24 03/21/24 03/20/24 History Allergies Allergy/AdvReac Type Severity Reaction Status Date / Time penicillin G Allergy Severe ALGY-Rash Verified 03/21/24 07:26 [facility] Anesthesia Medical History Diarrhea Borderline personality disorder Psychiatric care Encounter for pre-bariatric surgery counseling and education Posterior right knee pain Plantar fasciitis, bilateral Postmenopausal Arthritis, midfoot Hot flashes due to menopause Nicotine dependence, cigarettes, uncomplicated Chronic post-traumatic stress disorder Generalized anxiety disorder Major depressive disorder, recurrent, moderate Obesity GERD (gastroesophageal reflux disease) Chronic pain Surgical History Hx of colonoscopy History of esophagogastroduodenoscopy (EGD) 2 yrs ago History of laparoscopic cholecystectomy (~2014) History of hysterectomy (~2018) History of dilation and curettage (~2012) History of tubal ligation (~2002) History of 3 sections 1993,1999,2002 History of foot surgery BILATERAL- PLANTAR FASCITIS RELEASE Family History Father Hypertension Heart disease Diabetes Mother Thyroid disease Diabetes Obesity Grandmother Obesity Other Helicobacter pylori gastritis Denies family history of Anesthesia complication Bleeding disorder Social History Smoking and tobacco/nicotine status: current every day tobacco/nicotine user cigarettes Packs smoked per day: 1 Years cigarettes smoked: 32 Quit status (tobacco/nicotine): considering quitting Second hand smoke exposure: Yes Alcohol intake: never Substance/Drug Use: never Adopted: No Caregiver/support person: No Lives independently: Yes Household members: significant other Housing: Manufactured/Mobile home Marital status: Single Number of children: 3 Number of grandchildren: 3 Highest education level completed: GED or Equivalent service: No Current occupational status: employed 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
--- NOTE | 2024-03-21 08:22 | P.HP_ITS ---
Same Day Surgery H&P Indication for Procedure/HPI DATE OF PROCEDURE: March 21, 2024 CHIEF COMPLAINT/INDICATIONFOR SURGICAL PROCEDURE: Left carpal tunnel syndrome, left wrist de Quervain's disease PREOP DIAGNOSIS: Left carpal tunnel syndrome, left wrist de Quervain's disease PLANNED PROCEDURE: Operation Date: 03/21/24 08:45 Proposed Procedures p Carpal Tunnel Release(Left) - Orlando Bruce DO s Dequervain Release(Left) - Orlando Bruce DO Medications/Allergies* Home Medications Medication Instructions Recorded Confirmed Type estradiol 1 mg tablet 1 mg PO DAILY 03/19/24 03/21/24 History Allergies/Adverse Reactions Allergy/AdvReac Type Severity Reaction Status Date / Time penicillin G Allergy Severe ALGY-Rash Verified 03/21/24 07:26 Current Medications: Generic Name Dose Route Start Last Admin Trade Name Freq PRN Reason Stop Dose Admin Sodium Chloride 1,000 mls @ 30 mls/hr 03/21/24 07:30 03/21/24 07:56 Sodium Chloride 0.9% IV 03/22/24 07:29 30 mls/hr .Q24H BRIDGETTE Administration Pertinent History/Comorbid Conditions* Medical History (Updated 03/06/24 @ 07:31 by Tatyana Bhatia DO) Diarrhea Borderline personality disorder Psychiatric care Encounter for pre-bariatric surgery counseling and education Posterior right knee pain Plantar fasciitis, bilateral Postmenopausal Arthritis, midfoot Hot flashes due to menopause Nicotine dependence, cigarettes, uncomplicated Chronic post-traumatic stress disorder Generalized anxiety disorder Major depressive disorder, recurrent, moderate Obesity GERD (gastroesophageal reflux disease) Chronic pain Surgical History (Updated 06/08/23 @ 17:21 by Marques Lloyd DO) Hx of colonoscopy History of esophagogastroduodenoscopy (EGD) 2 yrs ago History of laparoscopic cholecystectomy (~2014) History of hysterectomy (~2018) History of dilation and curettage (~2012) History of tubal ligation (~2002) History of 3 sections 1993,1999,2002 History of foot surgery BILATERAL- PLANTAR FASCITIS RELEASE Family History (Updated 02/21/23 @ 15:36 by Leora Tate BROOKP) Helicobacter pylori gastritis Diabetes Father Mother Heart disease Father Hypertension Father Thyroid disease Mother Obesity Mother Grandmother Denies family history of Anesthesia complication Bleeding disorder Social History Smoking and tobacco/nicotine status: current every day tobacco/nicotine user cigarettes Packs smoked per day: 1 Years cigarettes smoked: 32 Quit status (tobacco/nicotine): considering quitting Second hand smoke exposure: Yes Alcohol intake: never Substance/Drug Use: never Adopted: No Caregiver/support person: No Lives independently: Yes Household members: significant other Housing: Manufactured/Mobile home Marital status: Single Number of children: 3 Number of grandchildren: 3 Highest education level completed: GED or Equivalent service: No Current occupational status: employed 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 Please refer to detailed orthopedic examination on 02/14/2024 for last office visit: Patient has a normal c-spine range of motion, negative spurling's sign and negative tinel's at the bilateral shoulders. She has negative tinel's at the elbows bilaterally, but does have positive tinel's at the median nerve and thenar weakness with no atrophy bilaterally. positive phalens and positive median nerve compression test bilaterally. She has positive tinel's over first dorsal with compression and tenderness to palpation and positive irma test bilaterally. Recommendations Surgery/Procedure today Other Plans: Plan to proceed to the OR today for left carpal tunnel release and left wrist de Quervain's release. Patient understands the ins and outs procedure the risk benefits complication alternatives of surgery and through shared decision-making was proceed with surgical intervention. All questions answered at this time. Coding Level of Care Code Acute Code for Camille Ibarra
[2024-03-21] MEDS: clindamycin 900 MG/50 ML PREMIX 100 MG IV (08:34)
[2024-03-21] MEDS: lidocaine-epi 1% 20 mL INJ INJECTION (09:03)
[2024-03-21] MEDS: ROPivacaine 0.5% SDV 30 mL 150 MG INJECTION (09:04)
--- NOTE | 2024-03-21 09:36 | P.BOP_ITS ---
Date of Procedure: [March 21, 2024] Surgeon: [Dr. Bruce DO] Precision Mechanical Instrument Maker(s): [Cricket Bruce PA-C] Procedure(s) performed: [left carpal tunnel release left wrist de Quervain's release] Findings of the procedure(s): [Left carpal tunnel syndrome, left wrist de Quervain's disease] Estimated blood loss: [5 ml] Specimen(s) removed: [n/a] Post-operative diagnosis: [Left carpal tunnel syndrome, left wrist de Quervain's disease]
--- NOTE | 2024-03-21 09:36 | PM.OP ---
Operative Report Date of procedure: March 21, 2024 Surgeon: Orlando Bruce DO Qa Specialist: Cricket Bruce PA-C: PA was necessary for assistance in this case with hand positioning to execute the procedure, retraction and protection of neurovascular structures as well as to assist with wound closure and dressing application. Procedure: Preoperative diagnosis: Left carpal tunnel syndrome Left wrist de Quervain's disease post-op diagnosis: Same Procedure done: 1.?Left carpal tunnel release 2. Left wrist de Quervain's release Surgeon: Orlando Bruce DO Anesthesia: General LMA Estimated blood?loss: 5 mL mL Tourniquet time 19 minutes minutes IV fluids: See anesthesia record Complications: None Findings: See operative report narrative Condition: stable Disposition: same day Brief History: Patient is a pleasant 49 year-old female?with?left carpal tunnel syndrome and left wrist de Quervain's disease. patient has been worked up in the outpatient setting findings and physical examination consistent with this.? Patient nerve?conduction studies consistent with carpal tunnel syndrome.? We detailed?out?patient's risk benefits complication alternatives with surgical and?nonsurgical treatment options. Through shared decision making, patient?agrees to proceed with surgical intervention of the?left carpal tunnel release .? Patient understands and agrees with current plan.? All questions answered.? Patient elects to proceed with surgical intervention with carpal tunnel release. Procedure: Patient seen and evaluated in the preoperative holding area.? Consent was reviewed and signed with patient.? Correct extremity was marked.? Patient was seen evaluated by the anesthesia department once cleared for surgery was brought back to the operative suite.? Patient was kept on [facility] in supine position all bony prominences were well-padded patient properly secured to the bed.??Left upper extremity was then placed onto an armboard.? A nonsterile tourniquet was applied to the?left upper arm.? Patient underwent anesthesia per the anesthesia department.? Patient's?left upper extremity was then prepped and draped in standard orthopedic fashion.? Final timeout performed.? Patient received appropriate preoperative antibiotics. Under sterile aseptic technique patient received?local anesthesia over the preplanned carpal tunnel incision site. Esmarch was used to exsanguinate the?left upper extremity and tourniquet was insufflated to 250 mmHg. A standard mini open?left carpal tunnel incision was made.? Starting distally at Winters's cardinal?line in?line with the fourth ray extending proximally distal to the wrist crease centered over the carpal tunnel.? Sharp scalpel incision was made through skin and subcutaneous tissue.? Self-retaining retractor was placed and the palmar fascia was identified.? This was then split?longitudinally and direct visualization of the transverse carpal?ligament was then made.? I then utilizing scalpel feathered through the transverse carpal?ligament until I entered the floor of the transverse carpal tunnel?ligament into the carpal tunnel.? Next I switched to dissection scissors and completed my release of the transverse carpal?ligament distally with care to protect the recurrent motor branch.? I completely released into the palmar fat and until no entrapment was noted distally.? Care was made to protect the superficial palmar arch during my distal dissection.? We utilized nasal speculum proximally to retract all soft tissue on top of the transverse tunnel ligament to have direct visualization. Next I then placed a Dardanelle underneath the transverse carpal tunnel?ligament to protect the contents of the carpal tunnel and subsequently utilizing dissection scissors under?loupe magnification completely released the transverse carpal?ligament proximally into the median antebrachial fascia.? Care was made to protect the palmar cutaneous branch by keeping my scissors curved ulnarly.? Once completely released, I then placed my Dardanelle and had appropriate decompression of the carpal tunnel proximally as well as distally.? I then inspected the contents of the carpal tunnel which showed an hourglass shape of the median nerve showing its compression.? No masses were noted.? Tendons appeared healthy.? Wound was then thoroughly irrigated.? Next I then proceeded with the right wrist de Quervain's release.? I marked out the first dorsal compartment a small longitudinal incision was made directly over this.? Sharp scalpel incision was made through skin only switch to Littler dissection scissors and protected the superficial branch of the radial nerve as well as neurovascular structures.? I then had direct visualization of the first dorsal compartment sharp scalpel incision I used to then simply incise the first dorsal compartment I switched dissection scissors to release this both proximally and distally to its entirety the EPB tendon did have a subsheath which was subsequently released as well.? I then subsequently used a rag nail and mobilized each tendon that verify no areas of entrapment and this completed the right wrist de Quervain's release. Tourniquet deflated.? Hemostasis satisfactory with bipolar electrocautery.? I then closed the incision with interrupted nylon stitches.? Xeroform 4 x 4's and a bulky soft dressing was applied to the?left upper extremity.? Patient was then awakened from anesthesia and taken to PACU in stable condition.? Patient tolerated procedure without complications. Disposition: Patient taken to PACU in stable condition recovering well.? Dressing clean dry and intact.? Patient will receive appropriate discharge instructions as well as pain medication postoperatively.? Patient to follow-up with me in the office in 2 weeks.? They understand they may be weightbearing as tolerated to the?left hand.? Patient should keep incision clean dry and intact.? Patient understands if any questions or concerns may contact the office.
--- NOTE | 2024-03-21 09:39 | PM.PACU ---
PACU note Narrative: Patient is a 49-year-old female just underwent a left carpal tunnel release and left de Quervain's release. Patient transferred to PACU in stable condition. Pain is well controlled. Dressing on hand is dry and in place. Patient's fingers are warm and well-perfused. Patient can wiggle fingers. normal cap refill under 2 seconds. Patient has normal elbow range of motion. Unable to assess sensation to hand due to residual localized anesthetic. Exam: awake Disposition: discharged
--- NOTE | 2024-03-21 09:56 | ANE.PACU2 ---
Inpatient post-anesthesia follow up: Vital signs: Temperature 97.8 F Pulse Rate 93 Respiratory Rate 18 Blood Pressure 127/79 Pulse Oximetry 96 Oxygen Delivery Me thod Room Air Oxygen Flow Rate 6 Fraction of Inspir ed Oxygen Hydration adequate: Yes Nausea and vomiting: No Pain level: 6 Mental status: Baseline
[2024-03-21] MEDS: fentaNYL 50 mcg/mL INJ 2mL IVP (10:00)
[2024-03-21] MEDS: HYDROcodone-acetaminophen 5-325 mg Tablet 1 TAB PO (10:43)
== END 2024-03-21 11:02 | disposition home or self-care (01) ==
PROVIDERS: PCP Family Medicine; Visit Provider Student in an Organized Health Care Education/Training Program
PROC: (CPT 64721; principal; 2024-03-21 08:35)
PROC: (CPT 25000; 2024-03-21 08:35)
DX: G56.02 Carpal tunnel syndrome, left upper limb (principal); M65.4 Radial styloid tenosynovitis [de Quervain]; J44.9 Chronic obstructive pulmonary disease, unspecified; K21.9 Gastro-esophageal reflux disease without esophagitis; E66.01 Morbid (severe) obesity due to excess calories; Z68.43 Body mass index [BMI] 50.0-59.9, adult; E66.9 Obesity, unspecified; F17.210 Nicotine dependence, cigarettes, uncomplicated
CPT/HCPCS: 25000; 64721; J0131; J1885; J2405; J2704; J2795; J3010; J3490; J7030

== ENCOUNTER 2024-03-27 08:23 | Outpatient (RCR) | payer MEDICAID, SELFPAY ==
[2024-01-09 15:09] VITALS: BP 127/91; BMI 54.8
== END 2024-04-20 23:59 | disposition home or self-care (01) ==
LOC: SPT 08:23
PROVIDERS: PCP Family Medicine; Visit Provider Anesthesiology Pain Medicine
DX: M54.50 Low back pain, unspecified (principal); G89.29 Other chronic pain
CPT/HCPCS: 97110; 97161

== ENCOUNTER → 2024-06-28 13:34 | Outpatient (BNVA) | payer SELFPAY ==
[2024-01-09 15:09] VITALS: BP 127/91; BMI 54.8
== END ==
PROVIDERS: PCP Family Medicine; Visit Provider Physician Assistant
DX: Z98.890 Other specified postprocedural states (principal); M65.312 Trigger thumb, left thumb
CPT/HCPCS: 73130

== ENCOUNTER → 2024-07-12 11:04 | Outpatient (BNVA) | payer MEDICAID, SELFPAY ==
[2024-01-09 15:09] VITALS: BP 127/91; BMI 54.8
== END ==
DX: D50.8 Other iron deficiency anemias (principal); E66.01 Morbid (severe) obesity due to excess calories; Z68.43 Body mass index [BMI] 50.0-59.9, adult; J43.1 Panlobular emphysema; R73.9 Hyperglycemia, unspecified
CPT/HCPCS: 80053; 80061; 82306; 82728; 83036; 83550; 84443; 85025

== ENCOUNTER 2024-10-02 13:33 | Outpatient (CLI) | payer MEDICAID, SELFPAY ==
[2024-08-31 10:23] VITALS: BP 127/91; BMI 54.8
--- NOTE | 2024-10-02 13:39 | CTR_ITS ---
PROCEDURE INFORMATION: Exam: CT Lumbar Spine Without Contrast Exam date and time: 10/02/2024 1:46 PM Age: 49 years old Clinical indication: Prior surgery; Surgery date: 6+ months; Surgery type: Hyst, gb; Patient HX: Vertebrogenic low back pain radiates down bilat legs TECHNIQUE: Imaging protocol: Computed tomography of the lumbar spine without contrast. Radiation optimization: All CT scans at this facility use at least one of these dose optimization techniques: automated exposure control; mA and/or kV adjustment per patient size (includes targeted exams where dose is matched to clinical indication); or iterative reconstruction. COMPARISON: CR XR lumbar spine 2-3V* [id number] 02/01/2022 8:18 PM RADIATION DOSE METRICS: Total DLP (mGy-cm): 1651.12 FINDINGS: Bones/joints: There is a 6 degree dextroconvex curvature of the lumbar spine centered at L3. There is no evidence for acute lumbar fracture. There is no significant lumbar canal or foraminal narrowing. Soft tissues: Unremarkable. CT/CT lumbar spine wo con* [id number] IMPRESSION: No acute process in the lumbar spine. Mild dextroconvex curvature.
== END 2024-10-02 13:34 | disposition home or self-care (01) ==
LOC: RAD 13:34
PROVIDERS: Visit Provider Anesthesiology Pain Medicine
DX: M54.51 Vertebrogenic low back pain (principal); Z90.49 Acquired absence of other specified parts of digestive tract; Z90.710 Acquired absence of both cervix and uterus
CPT/HCPCS: 72131

== ENCOUNTER 2024-10-29 13:49 | Emergency (ER) | payer MEDICAID, SELFPAY ==
[2024-08-31 10:23] VITALS: BP 127/91; BMI 54.8
[2024-10-29 13:51] VITALS: BP 139/81; PULSE 105; RESP 18; TEMP 36.7; O2SAT 96; BMI 60.0
--- NOTE | 2024-10-29 13:57 | XR_ITS ---
WS: [id number] Exam: XR chest 1V portable [id number] Date/Time of Exam: 10/29/2024 2:01 PM Reason For Exam: dyspnea/cough Comparison 09/27/2023. The lungs are fully inflated and clear. Normal cardiomediastinal silhouette and regional bony element s. XR/XR chest 1V portable [id number] IMPRESSION: 1. Negative chest.
--- NOTE | 2024-10-29 13:58 | ECG_ITS ---
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
[2024-10-29 14:04] VITALS: BP 148/73; PULSE 105; O2SAT 96
[2024-10-29 14:10] LABS: Basophils % 0.3 %; Eosinophils # 0.1 10^3/uL (0.0-0.8); Eosinophils % 0.9 %; Hematocrit 39.3 % (36-47); Lymphocytes # 3.5 10^3/uL (0.8-4.8); Lymphocytes % 34.3 %; Mean Corpuscular HGB Conc 31.8 g/dL (30-55); Mean Corpuscular Hemoglobin 25.5 pg (27-33); Monocytes # 0.5 10^3/uL (0.2-0.9); Monocytes % 5.3 %; Neutrophils # 6.05 10^3/uL (1.8-7.7); Nucleated Red Blood Cells % 0 %; Platelet Count 497 10^3/cmm (157-399); Red Blood Count 4.91 10^6/uL (3.85-5.65); Red Cell Distribution Width 14.6 % (12.1-15.1); White Blood Count 10.25 10^3/uL (3.29-11.43)
--- NOTE | 2024-10-29 14:13 | W.ED.SOB ---
HPI - SOB/Dyspnea General: Chief Complaint: Shortness of Breath/Dyspnea Stated Complaint: sob Time Seen by Provider: 10/29/24 13:51 History of Present Illness: HPI Narrative: 49-year-old female presents emergency room complaining of shortness of breath. She has a history of COPD no significant chest pain. Shortness of breath was worse with exertion and with coughing fits. It is relieved by albuterol. No fever sweats or chills cough is nonproductive. Denies chest pain. Associated symptoms: Deny abdominal pain, chest pain or fever(s) Related Data Previous Rx's Medication Instructions Recorded budesonide-formoterol HFA 160 2 puff inhalation Q12H #10.2 grams 03/05/24 mcg-4.5 mcg/actuation aerosol inhaler (Symbicort) CPAP mask, tubing, and supplies #1 ea 05/03/24 albuterol sulfate 1.25 mg/3 mL 1.25 mg (3 mL) inhalation QID PRN 08/06/24 solution for nebulization shortness of breath or wheezing #75 mL hydroxyzine pamoate 50 mg capsule 50 mg PO BID PRN anxiety #60 caps 08/06/24 venlafaxine 150 mg 150 mg PO QAM #30 caps 08/06/24 capsule,extended release 24 hr (Effexor XR) venlafaxine 75 mg capsule,extended 75 mg PO QAM #30 caps 08/06/24 release 24 hr (Effexor XR) albuterol sulfate 90 mcg/actuation 2 puff inhalation Q4H PRN 10/16/24 aerosol inhaler (Ventolin HFA) shortness of breath or wheezing #8.5 grams cetirizine 10 mg tablet (Zyrtec) 10 mg PO DAILY #30 tabs 10/16/24 estradiol 2 mg tablet 2 mg PO DAILY #30 tabs 10/16/24 pantoprazole 40 mg tablet,delayed 40 mg PO BID #60 tabs 10/16/24 release tiotropium bromide 18 mcg capsule 1 cap inhalation DAILY #60 10/16/24 with inhalation device (Spiriva inhalations with HandiHaler) topiramate 50 mg tablet 50 mg PO ONCE #30 tabs 10/16/24 albuterol sulfate 90 mcg/actuation 2 inh inhalation Q4H PRN shortness 10/29/24 aerosol inhaler of breath or wheezing #18 grams prednisone 20 mg tablet 20 mg PO TID #15 tabs 10/29/24 Allergies Allergy/AdvReac Type Severity Reaction Status Date / Time penicillin G Allergy Severe ALGY-Rash Verified 10/29/24 12:53 Beef Containing Products Allergy Intermediate ADR-Gastrointestinal Verified 10/29/24 12:53 Upset Review of Systems Const: Denies: fever(s) or chills Card: Reports: dyspnea on exertion; Denies: chest pain Resp: Reports: dyspnea GI: Denies: abdominal pain : Denies: dysuria, urinary frequency or urinary urgency Musc: Denies: neck pain or back pain Skin/Breast: Denies: rash PFSH ED PFSH: Medical History New onset of headaches Diarrhea Borderline personality disorder Psychiatric care Encounter for pre-bariatric surgery counseling and education Posterior right knee pain Plantar fasciitis, bilateral Postmenopausal Arthritis, midfoot Hot flashes due to menopause Nicotine dependence, cigarettes, uncomplicated Chronic post-traumatic stress disorder Generalized anxiety disorder Major depressive disorder, recurrent, moderate Obesity GERD (gastroesophageal reflux disease) Chronic pain Surgical History Hx of colonoscopy History of esophagogastroduodenoscopy (EGD) 2 yrs ago History of laparoscopic cholecystectomy (~2014) History of hysterectomy (~2018) History of dilation and curettage (~2012) History of tubal ligation (~2002) History of 3 sections 1993,1999,2002 History of foot surgery BILATERAL- PLANTAR FASCITIS RELEASE Family History Father Hypertension Heart disease Diabetes Mother Thyroid disease Diabetes Obesity Grandmother Obesity Other Helicobacter pylori gastritis Denies family history of Anesthesia complication Bleeding disorder Social History Smoking and tobacco/nicotine status: current every day tobacco/nicotine user cigarettes Packs smoked per day: 1 Years cigarettes smoked: 32 Quit status (tobacco/nicotine): considering quitting Second hand smoke exposure: Yes Alcohol intake: never Substance/Drug Use: never Adopted: No Caregiver/support person: No Lives independently: Yes Household members: significant other Housing: Manufactured/Mobile home Marital status: Single Number of children: 3 Number of grandchildren: 3 Highest education level completed: GED or Equivalent service: No Current occupational status: employed 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 Current occupational exposures/hazards: No Pets and animals: Yes Pets & animals: dog(s) Leisure activites: other Leisure activities details: watch TV Sexually active: Yes Do you think of yourself as: Lesbian/Harmon/Homosexual Current gender identity: Female Flakita/Protestant: None Special flakita needs: No Agree to transfusion: Yes Female Reproductive History: Para: 3 Physical Exam Const: GENERAL APPEARANCE: cooperative ORIENTATION/CONSCIOUSNESS: Yes awake, Yes oriented to person, Yes oriented to place and Yes oriented to time HENMT: COMMON NORMALS: normocephalic, atraumatic and hearing grossly normal bilaterally HEAD & SCALP: normocephalic and atraumatic Resp: COMMON NORMALS: normal respiratory effort, No retractions, No use of accessory muscles and clear to auscultation bilaterally AUSCULTATION: clear to auscultation bilaterally Cardio: COMMON NORMALS: regular rate, regular rhythm and No murmurs present (Cardio) RATE: regular rate RHYTHM: regular rhythm GI: COMMON NORMALS: Soft to palpation and No hepatosplenomegaly present AUSCULTATION: Yes normoactive bowel sounds PALPATION: Yes Soft to palpation, No Tenderness to palpation present (GI), No Guarding due to palpation present (GI) and Yes No hepatosplenomegaly present Extremity: COMMON NORMALS: normal to inspection, capillary refill normal, no clubbing, cyanosis or edema, no calf tenderness and no pedal edema Neuro: SENSORIUM/ORIENTATION: Yes oriented to person, Yes oriented to place and Yes oriented to time Skin: COMMON NORMALS: no rashes or lesions noted GENERAL SKIN EXAM: no rashes or lesions noted Course Vital Signs: Vital signs: Vital Signs Temperature 98.1 F 10/29/24 13:51 Pulse Rate 90 10/29/24 16:28 Respiratory Rate 18 10/29/24 13:51 Blood Pressure 156/89 10/29/24 16:28 Pulse Oximetry 98 10/29/24 16:28 Oxygen Delivery Me thod Room Air 10/29/24 14:33 MDM - SOB/Dyspnea Medical Decision Making Acute exacerbation COPD discharged home on steroids aggressive use of beta agonist. Recheck if not improving. Medical Records I reviewed the patient's medical records. Lab Data I reviewed the patient's lab results. 10/29/24 13:45 10/29/24 13:45 Labs/Radiology: Radiology Impressions Chest X-Ray 10/29/24 13:57 IMPRESSION: 1. Negative chest. Laboratory Results WBC 10.25 10^3/uL (3.29-11.43) 10/29/24 13:45 RBC 4.91 10^6/uL (3.85-5.65) 10/29/24 13:45 Hgb 12.50 g/dL (11.27-16.99) 10/29/24 13:45 Hct 39.3 % (36-47) 10/29/24 13:45 MCV 80.0 fl (85-98) L 10/29/24 13:45 MCH 25.5 pg (27-33) L 10/29/24 13:45 MCHC 31.8 g/dL (30-55) 10/29/24 13:45 RDW 14.6 % (12.1-15.1) 10/29/24 13:45 Plt Count 497 10^3/cmm (157-399) H 10/29/24 13:45 MPV 9.0 fL (7.4-10.4) 10/29/24 13:45 Neut % (Auto) 59.0 % 10/29/24 13:45 Lymph % (Auto) 34.3 % 10/29/24 13:45 [place] % (Auto) 5.3 % 10/29/24 13:45 Eos % (Auto) 0.9 % 10/29/24 13:45 Baso % (Auto) 0.3 % 10/29/24 13:45 Neut # (Auto) 6.05 10^3/uL (1.8-7.7) 10/29/24 13:45 Lymph # (Auto) 3.5 10^3/uL (0.8-4.8) 10/29/24 13:45 [place] # (Auto) 0.5 10^3/uL (0.2-0.9) 10/29/24 13:45 Eos # (Auto) 0.1 10^3/uL (0.0-0.8) 10/29/24 13:45 Baso # (Auto) 0.0 10^3/uL (0.0-0.1) 10/29/24 13:45 Nucleated RBC % (auto) 0 % 10/29/24 13:45 Nucleated RBCs # 0.0 /100WBC 10/29/24 13:45 D-Dimer 0.42 ug/mLFEU (0-0.59) 10/29/24 13:45 Sodium 139 mmol/L (136-145) 10/29/24 13:45 Potassium 4.6 mmol/L (3.5-5.1) 10/29/24 13:45 Chloride 101 mmol/L (98-107) 10/29/24 13:45 Carbon Dioxide 26 mmol/L (22-29) 10/29/24 13:45 Anion Gap 16.6 (5-19) 10/29/24 13:45 BUN 14 mg/dL (6-20) 10/29/24 13:45 Creatinine 0.8 mg/dL (0.5-0.9) 10/29/24 13:45 GFR Calculation 76.9 mL/min (90-130) L 10/29/24 13:45 Glucose 144 mg/dL (65-115) H 10/29/24 13:45 Calculated Osmolality 291 mOsm/kg (285-295) 10/29/24 13:45 Calcium 9.7 mg/dL (8.5-10.5) 10/29/24 13:45 Total Bilirubin 0.2 mg/dL (0.15-1.2) 10/29/24 13:45 AST 15 U/L (0-32) 10/29/24 13:45 ALT 16 U/L (0-33) 10/29/24 13:45 Alkaline Phosphatase 97 U/L (35-105) 10/29/24 13:45 Troponin T Baseline < 6 ng/L (0-10) 10/29/24 13:45 Troponin T 120 Minute 6.00 ng/L (0-10) 10/29/24 15:25 Delta Troponin T 0.73625 ABS# (0-10) 10/29/24 15:25 Total Protein 6.9 g/dL (6.6-8.7) 10/29/24 13:45 Albumin 3.9 g/dL (3.5-5.2) 10/29/24 13:45 Globulin 3.0 g/dL (1.3-4.6) 10/29/24 13:45 All radiology interpretation(s) finalized by discharge Discharge Plan Discharge Patient Disposition: Home Clinical Impression: Acute exacerbation of chronic obstructive airways disease Condition: Stable Prescriptions: New prednisone 20 mg tablet 20 mg PO TID Qty: 15 0RF Rx Instructions: 1 p.o. 3 times daily x3 days, 1 p.o. twice daily x2 days, 1 p.o. daily x2 days albuterol sulfate 90 mcg/actuation HFA aerosol inhaler 2 inh INHALATION Q4H PRN (Reason: shortness of breath or wheezing) Qty: 18 0RF No Action (DME) CPAP mask, tubing, and supplies See Rx Instructions .Route .MEDSUPPLY Qty: 1 0RF Rx Instructions: As directed topiramate 50 mg tablet 50 mg PO ONCE Qty: 30 0RF tiotropium bromide [Spiriva with HandiHaler] 18 mcg capsule, w/inhalation device 1 cap inhalation DAILY Qty: 60 5RF Rx Instructions: puncture 1 cap using device; one dose = 2 inhalations pantoprazole 40 mg tablet,delayed release (DR/EC) 40 mg PO BID Qty: 60 2RF estradiol 2 mg tablet 2 mg PO DAILY Qty: 30 2RF Rx Instructions: Take 1 tablet by mouth once daily albuterol sulfate [Ventolin HFA] 90 mcg/actuation HFA aerosol inhaler 2 puff inhalation Q4H PRN (Reason: shortness of breath or wheezing) Qty: 8.5 5RF cetirizine [Zyrtec] 10 mg tablet 10 mg PO DAILY Qty: 30 2RF budesonide-formoterol [Symbicort] 160-4.5 mcg/actuation HFA aerosol inhaler 2 puff inhalation Q12H Qty: 10.2 5RF venlafaxine [Effexor XR] 75 mg capsule,extended release 24hr 75 mg PO QAM Qty: 30 6RF venlafaxine [Effexor XR] 150 mg capsule,extended release 24hr 150 mg PO QAM Qty: 30 6RF hydroxyzine pamoate 50 mg capsule 50 mg PO BID PRN (Reason: anxiety) Qty: 60 3RF Rx Instructions: Take one capsule twice per day as needed for anxiety albuterol sulfate 1.25 mg/3 mL solution for nebulization 1.25 mg inhalation QID PRN (Reason: shortness of breath or wheezing) Qty: 75 0RF Discharge Orders: Discharge ED (Routine); Ordered 10/29/24 Ordered By: Danny Delgado Referrals: Kimberli Hdz, [facility] LO[facility]ER [Primary Care Provider] - Discharge Diet: Usual diet Discharge Activity: Resume usual activity Patient Instructions: COPD (Chronic Obstructive Pulmonary Disease) (ED), Opioid Safety, Pain Management Activity Restrictions/Additional Instructions: Thank you for choosing [facility] for your healthcare needs today. It is very important that you follow up as instructed or that you return to the Emergency Department should you have concerns or if your condition changes or worsens in any way. You are seen complaining of shortness of breath there is no sign of acute coronary syndrome or PE. Recommend you start steroid taper use albuterol as needed follow-up with primary care doctor if not improving continue to use your other regularly prescribed inhaled medications. Coding Level of Care Code ED Youth Manager for Camille Ibarra
[2024-10-29 14:24] LABS: Albumin Level 3.9 g/dL (3.5-5.2); Alkaline Phosphatase 97 U/L (35-105); Chloride 101 mmol/L (98-107); Potassium 4.6 mmol/L (3.5-5.1); Sodium 139 mmol/L (136-145)
[2024-10-29 14:33] VITALS: BP 128/83; PULSE 103; O2SAT 96
[2024-10-29 14:42] LABS: Alanine Aminotransferase 16 U/L (0-33); Anion Gap 16.6 (5-19); Aspartate Amino Transferase 15 U/L (0-32); Blood Urea Nitrogen 14 mg/dL (6-20); Calcium 9.7 mg/dL (8.5-10.5); Carbon Dioxide 26 mmol/L (22-29); Creatinine Clr Calc Pharmacy 118.5432; Glomerular Filtration Rate 76.9 mL/min (90-130); Glucose 144 mg/dL (65-115); Osmolality Calculated 291 mOsm/kg (285-295); Total Bilirubin 0.2 mg/dL (0.15-1.2); Total Protein 6.9 g/dL (6.6-8.7)
[2024-10-29 15:13] LABS: Troponin(5th) Baseline < 6 ng/L (0-10)
[2024-10-29 15:23] LABS: D Dimer 0.42 ug/mLFEU (0-0.59)
[2024-10-29 15:56] LABS: Troponin 5 2HR Delta 0.00001 ABS# (0-10)
[2024-10-29 16:28] VITALS: BP 156/89; PULSE 90; O2SAT 98
--- NOTE | 2024-10-29 16:46 | ECG_ITS ---
M-Files Test Date: 2024-10-29 Pat Name: Judy Dietrich Department: Room: Gender: Female Special Procedure Tech: : 1975 Requested By: Danny Mullins Order Number: [id number] Reading MD: RIMA PARTIDA Measurements Intervals [place] Rate: 95 P: 43 MS: 137 QRS: 60 QRSD: 86 T: 52 QT: 355 QTc: 447 Interpretive Statements SINUS RHYTHM LOW QRS VOLTAGE IN PRECORDIAL LEADS [QRS DEFLECTION < 1.0 mV IN CHEST LEADS] Compared to ECG 10/29/2024 13:57:54 No significant changes Electronically Signed On 10-29-2024 16:13:41 WOMEN DESIGNER by RIMA PARTIDA [email or web address]
== END 2024-10-29 16:29 | disposition home or self-care (01) ==
PROVIDERS: Emergency Provider Family Medicine
DX: J44.1 Chronic obstructive pulmonary disease with (acute) exacerbation (principal)
CPT/HCPCS: 71045; 80053; 84484; 85025; 85378; 93005; 99285

== ENCOUNTER 2024-10-30 12:56 | Outpatient (CLI) | payer MEDICAID, SELFPAY ==
[2024-08-31 10:23] VITALS: BP 127/91; BMI 54.8
--- NOTE | 2024-10-30 13:30 | MM_ITS ---
WS: [id number] BILATERAL 3D TOMOSYNTHESIS DIGITAL SCREENING MAMMOGRAM WITH CAD CLINICAL INFORMATION: screening HISTORY: Screening mammogram. No current complaints. COMPARISON: 2022 TECHNIQUE: Bilateral CC and MLO views. FINDINGS: Fatty-replaced breasts bilaterally. No suspicious focal mass, asymmetry, calcifications, or etl architect ural distortion. No evidence of malignancy. MM/MM scr tomosynthesis [id number] IMPRESSION: DENSITY: The breasts are almost entirely fatty. BI-RADS: 1 - Negative. FOLLOW UP: 1 Year Follow-up Recommend return to annual screening mammography.
== END 2024-10-30 12:57 | disposition home or self-care (01) ==
LOC: RAD 12:57
DX: Z12.31 Encounter for screening mammogram for malignant neoplasm of breast (principal); R92.313 Mammographic fatty tissue density, bilateral breasts
CPT/HCPCS: 77063; 77067

== ENCOUNTER → 2024-12-27 10:43 | Outpatient (BNVA) | payer OTHER, SELFPAY ==
[2024-08-31 10:23] VITALS: BP 127/91; BMI 54.8
== END ==
DX: R73.9 Hyperglycemia, unspecified (principal)
CPT/HCPCS: 80053; 83036

== ENCOUNTER → 2024-12-31 13:31 | Outpatient (BNVA) | payer OTHER, SELFPAY ==
[2024-08-31 10:23] VITALS: BP 127/91; BMI 54.8
== END ==
PROVIDERS: Visit Provider Nurse Practitioner Psychiatric/Mental Health
DX: Z79.899 Other long term (current) drug therapy (principal)
CPT/HCPCS: 80061; 82306

== ENCOUNTER 2025-01-01 16:15 | Emergency (ER) | payer MEDICAID, SELFPAY ==
[2025-01-01 10:16] VITALS: BP 144/84; BMI 61.5
[2025-01-01 16:32] VITALS: BP 145/79; PULSE 95; TEMP 36.8; O2SAT 95; BMI 60.4
--- NOTE | 2025-01-01 17:07 | XRR_ITS ---
PROCEDURE INFORMATION: Exam: XR Chest Exam date and time: 01/01/2025 5:26 PM Age: 49 years old Clinical indication: Shortness of breath; Additional info: SOB TECHNIQUE: Imaging protocol: Radiologic exam of the chest. Views: 1 view. COMPARISON: CR XR chest 1V portable [id number] 10/29/2024 2:10 PM FINDINGS: Lungs: Unremarkable. No consolidation. Pleural spaces: Unremarkable. No pleural effusion. No pneumothorax. Heart/Mediastinum: Unremarkable. No cardiomegaly. Bones/joints: Unremarkable. XR/XR chest 1V portable [id number] IMPRESSION: No acute findings.
--- NOTE | 2025-01-01 17:28 | W.ED.URI ---
HPI - URI/Sore Throat General: Chief Complaint: Upper Respiratory Infection Stated Complaint: SOB Time Seen by Provider: 01/01/25 17:23 Source: patient Mode of arrival: ambulatory Limitations: no limitations History of Present Illness: Patient is a 49-year-old female who presents the emergency department complaining of shortness of breath the past couple of days. She reports to me history of COPD, I do not see a diagnosis in her history although states that she went to primary care yesterday and was prescribed prednisone and doxycycline for a COPD flare. Arrives today stating that her breathing has gotten worse and she is now coughing, also woke up with a fever. She reports a headache and some pleuritic chest pain. She also notes that she has been using nebulized breathing treatments at home, not much relief. She does not use oxygen at home. She has been greater than 95% SpO2 on room air with triage as well as in vertical flow, no temperature at this time. She does not report taking any medications other than the ones she were prescribed yesterday. Denies any known sick contact exposure to flu or COVID. Denies her cough being productive. MD elicited complaint: fever and cough Pertinent past history: COPD (Reported by patient) Onset (ago): day(s) Consistency: constant Severity: moderate Able to tolerate fluids by mouth: Yes Associated symptoms: Reports fever(s) and headache(s); Deny abdominal pain, chills, chest pain, diarrhea, ear or mastoid pain, nausea or vomiting Treatments prior to arrival: other (Prescribed prednisone as well as doxycycline) Related Data Previous Rx's ?Medication ?Instructions ?Recorded budesonide-formoterol HFA 160 2 puff inhalation Q12H #10.2 grams 03/05/24 mcg-4.5 mcg/actuation aerosol inhaler (Symbicort) albuterol sulfate 1.25 mg/3 mL 1.25 mg (3 mL) inhalation QID PRN 08/06/24 solution for nebulization shortness of breath or wheezing #75 mL albuterol sulfate 90 mcg/actuation 2 puff inhalation Q4H PRN 10/16/24 aerosol inhaler (Ventolin HFA) shortness of breath or wheezing #8.5 grams tiotropium bromide 18 mcg capsule 1 cap inhalation DAILY #60 10/16/24 with inhalation device (Spiriva inhalations with HandiHaler) topiramate 50 mg tablet 50 mg PO ONCE #30 tabs 10/16/24 hydroxyzine pamoate 50 mg capsule 50 mg PO BID PRN anxiety #60 caps 12/03/24 venlafaxine 150 mg 150 mg PO QAM #30 caps 12/03/24 capsule,extended release 24 hr (Effexor XR) venlafaxine 75 mg capsule,extended 75 mg PO QAM #30 caps 12/03/24 release 24 hr (Effexor XR) estradiol 2 mg tablet 2 mg PO DAILY #30 tabs 12/27/24 fexofenadine 180 mg tablet 180 mg PO DAILY #30 tabs 12/27/24 (Breanna Hives) metoprolol succinate 50 mg 50 mg PO DAILY #30 tabs 12/27/24 tablet,extended release 24 hr pantoprazole 40 mg tablet,delayed 40 mg PO BID #60 tabs 12/27/24 release CPAP mask, tubing, and supplies #1 ea 12/28/24 Shower chair #1 ea 12/28/24 doxycycline monohydrate 100 mg 100 mg PO BID #20 tabs 12/31/24 tablet prednisone 20 mg tablet 20 mg PO BID #20 tabs 12/31/24 oseltamivir 75 mg capsule (Tamiflu) 75 mg PO BID 5 days #10 caps 01/01/25 Allergies Allergy/AdvReac Type Severity Reaction Status Date / Time penicillin G Allergy Severe ALGY-Rash Verified 01/01/25 16:41 Beef Containing Products Allergy Intermediate ADR-Gastrointestinal Verified 01/01/25 16:41 Upset Review of Systems General: Reports: 10 or more systems reviewed and unremarkable except in HPI and below Const: Reports: fever(s); Denies: chills or fatigue Eyes: Denies: change in vision ENMT: Denies: throat pain, ear or mastoid pain or nasal discharge Card: Denies: chest pain, palpitations, swelling of feet/ankles or lightheadedness Resp: Reports: dyspnea, non-productive cough, wheezing and pain on inspiration; Denies: productive cough GI: Denies: abdominal pain, nausea, vomiting, diarrhea or constipation : Denies: flank pain, difficulty voiding, dysuria or urinary frequency Musc: Denies: neck pain, back pain or joint pain Skin/Breast: Denies: rash Neuro: Reports: headache(s); Denies: numbness in extremities or weakness in extremities PFSH ED PFSH: Medical History Tachycardia New onset of headaches Diarrhea Borderline personality disorder Psychiatric care Encounter for pre-bariatric surgery counseling and education Posterior right knee pain Plantar fasciitis, bilateral Postmenopausal Arthritis, midfoot Hot flashes due to menopause Nicotine dependence, cigarettes, uncomplicated Chronic post-traumatic stress disorder Generalized anxiety disorder Major depressive disorder, recurrent, moderate Obesity GERD (gastroesophageal reflux disease) Chronic pain Surgical History Hx of colonoscopy History of esophagogastroduodenoscopy (EGD) 2 yrs ago History of laparoscopic cholecystectomy (~2014) History of hysterectomy (~2018) History of dilation and curettage (~2012) History of tubal ligation (~2002) History of 3 sections 1993,1999,2002 History of foot surgery BILATERAL- PLANTAR FASCITIS RELEASE Family History Father Hypertension Heart disease Diabetes Mother Thyroid disease Diabetes Obesity Grandmother Obesity Other Helicobacter pylori gastritis Denies family history of Anesthesia complication Bleeding disorder Social History Smoking and tobacco/nicotine status: never used tobacco/nicotine Quit status (tobacco/nicotine): considering quitting Second hand smoke exposure: Yes Alcohol intake: never Substance/Drug Use: never Adopted: No Caregiver/support person: No Lives independently: Yes Household members: significant other Housing: Manufactured/Mobile home Marital status: Single Number of children: 3 Number of grandchildren: 3 Highest education level completed: GED or Equivalent service: No Current occupational status: employed 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 Current occupational exposures/hazards: No Pets and animals: Yes Pets & animals: dog(s) Leisure activites: other Leisure activities details: watch TV Sexually active: Yes Do you think of yourself as: Lesbian/Harmon/Homosexual Current gender identity: Female Flakita/Scientologist: None Special flakita needs: No Agree to transfusion: Yes Female Reproductive History: Para: 3 Physical Exam Const: COMMON NORMALS: patient oriented x3, no limitations and alert GENERAL APPEARANCE: cooperative NUTRITIONAL APPEARANCE: obese morbidly obese ORIENTATION/CONSCIOUSNESS: Yes awake HENMT: COMMON NORMALS: normocephalic, atraumatic and moist oral mucous membranes HEAD & SCALP: normocephalic and atraumatic Eye: COMMON NORMALS: EOMs intact bilaterally and conjunctivae normal CONJUNCTIVA: Yes conjunctivae normal Neck/C-Spine: COMMON NORMALS: full ROM and no JVD Resp: COMMON NORMALS: normal respiratory effort, No retractions and No use of accessory muscles EFFORT & INSPECTION: Yes Actively coughing AUSCULTATION: wheezes expiratory wheezes and throughout Cardio: COMMON NORMALS: no JVD, regular rate, regular rhythm, S1 normal heart sound present and S2 normal heart sound present RATE: regular rate RHYTHM: regular rhythm HEART SOUNDS: S1 normal heart sound present and S2 normal heart sound present Extremity: COMMON NORMALS: normal to inspection, full ROM, capillary refill normal, no clubbing, cyanosis or edema and no pedal edema Neuro: COMMON NORMALS: patient oriented x3, moves all extremities, no focal motor deficits and no sensory deficits noted SENSORIUM/ORIENTATION: Yes alert Skin: COMMON NORMALS: no rashes or lesions noted GENERAL SKIN EXAM: no rashes or lesions noted Course Vital Signs: Vital signs: Vital Signs Temperature 98.3 F 01/01/25 16:32 Pulse Rate 83 01/01/25 18:14 Respiratory Rate 20 H 01/01/25 18:14 Blood Pressure 145/79 01/01/25 16:32 Pulse Oximetry 93 01/01/25 18:14 Oxygen Delivery Me thod Room Air 01/01/25 18:14 MDM - URI/Sore Throat Medical Decision Making This patient presented with shortness of breath and other upper respiratory symptoms. Was started on doxycycline and prednisone yesterday with primary care for reports of COPD exacerbation. She did have some diffuse expiratory wheezing on exam, was actively coughing. Oxygen has maintained stable here throughout ED stay, she does not require O2 at home. Her x-ray did not demonstrate any focal lobar pneumonia or other concerning findings. She is positive for flu A and I do think that this is the main cause for her symptoms, more so than a COPD exacerbation. However will have her continue taking her prednisone and antibiotics, will add Tamiflu being that her symptoms began just a couple of days ago and we will have her monitor her condition closely for any worsening. She verbalized understanding to return precautions. Lab Data Radiology Impressions Chest X-Ray 01/01/25 17:07 IMPRESSION: No acute findings. Laboratory Results Coronavirus (PCR) Negative (Negative) 01/01/25 16:40 Influenza A (PCR) Positive (Negative) 01/01/25 16:40 Influenza Type B (PCR) Negative (Negative) 01/01/25 16:40 RSV (PCR) Negative (Negative) 01/01/25 16:40 All radiology interpretation(s) finalized by discharge Discharge Plan Discharge Patient Disposition: Home Clinical Impression: Influenza A Condition: Stable Prescriptions: New oseltamivir [Tamiflu] 75 mg capsule 75 mg PO BID 5 Days Qty: 10 0RF No Action topiramate 50 mg tablet 50 mg PO ONCE Qty: 30 0RF tiotropium bromide [Spiriva with HandiHaler] 18 mcg capsule, w/inhalation device 1 cap inhalation DAILY Qty: 60 5RF Rx Instructions: puncture 1 cap using device; one dose = 2 inhalations albuterol sulfate [Ventolin HFA] 90 mcg/actuation HFA aerosol inhaler 2 puff inhalation Q4H PRN (Reason: shortness of breath or wheezing) Qty: 8.5 5RF metoprolol succinate 50 mg tablet extended release 24 hr 50 mg PO DAILY Qty: 30 0RF fexofenadine [Breanna Hives] 180 mg tablet 180 mg PO DAILY Qty: 30 2RF estradiol 2 mg tablet 2 mg PO DAILY Qty: 30 2RF Rx Instructions: Take 1 tablet by mouth once daily pantoprazole 40 mg tablet,delayed release (DR/EC) 40 mg PO BID Qty: 60 2RF (DME) Shower chair 300 pound capacity See Rx Instructions .Route .MEDSUPPLY Qty: 1 0RF Rx Instructions: As directed (DME) CPAP mask, tubing, and supplies See Rx Instructions .Route .MEDSUPPLY Qty: 1 0RF Rx Instructions: As directed doxycycline monohydrate 100 mg tablet 100 mg PO BID Qty: 20 0RF prednisone 20 mg tablet 20 mg PO BID Qty: 20 0RF budesonide-formoterol [Symbicort] 160-4.5 mcg/actuation HFA aerosol inhaler 2 puff inhalation Q12H Qty: 10.2 5RF albuterol sulfate 1.25 mg/3 mL solution for nebulization 1.25 mg inhalation QID PRN (Reason: shortness of breath or wheezing) Qty: 75 0RF hydroxyzine pamoate 50 mg capsule 50 mg PO BID PRN (Reason: anxiety) Qty: 60 3RF Rx Instructions: Take one capsule twice per day as needed for anxiety venlafaxine [Effexor XR] 75 mg capsule,extended release 24hr 75 mg PO QAM Qty: 30 6RF venlafaxine [Effexor XR] 150 mg capsule,extended release 24hr 150 mg PO QAM Qty: 30 6RF Discharge Orders: Discharge ED (Routine); Ordered 01/01/25 Ordered By: Quintin Pérez Referrals: Kimberli Hdz, FRANCO [Primary Care Provider] - Patient Instructions: Influenza (ED) Activity Restrictions/Additional Instructions: You have been diagnosed with flu A. Please take Tamiflu as prescribed. Continue taking your prednisone and using nebulized albuterol treatments at home. Please return with any severe worsening of shortness of breath or other concerns that you have. Follow-up closely with your primary care provider. Print Language: Singaporean Coding Level of Care Code ED Leather Whitener for Camille Ibarra
[2025-01-01] MEDS: ipratropium-albuterol 3 mL Neb INHALATION (18:10)
[2025-01-01 18:12] LABS: Covid PCR NEGATIVE (Negative); Influenza A POSITIVE (Negative); Influenza B NEGATIVE (Negative); Respiratory Syncytial Virus Ce NEGATIVE (Negative)
[2025-01-01 18:14] VITALS: PULSE 83; RESP 20; O2SAT 93
[2025-01-01] MEDS: oseltamivir phosphate 75 mg Capsule PO (18:23)
[2025-01-01 18:31] VITALS: BP 138/83; PULSE 82; RESP 18; O2SAT 94
--- NOTE | 2025-01-01 18:32 | ECG_ITS ---
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 Measurements Intervals [place] Rate: 104 P: 66 RI: 136 QRS: 58 QRSD: 88 T: 34 QT: 338 QTc: 446 Interpretive Statements SINUS TACHYCARDIA LOW QRS VOLTAGE IN PRECORDIAL LEADS [QRS DEFLECTION < 1.0 mV IN CHEST LEADS] ABNORMAL RHYTHM ECG Compared to ECG 10/29/2024 15:40:36 Sinus rhythm no longer present Electronically Signed On 01-02-2025 17:59:25 BARTENDER HELPER by Liliana Enriquez M.D. [id number]
== END 2025-01-01 18:31 | disposition home or self-care (01) ==
PROVIDERS: Emergency Medicine; Emergency Provider Physician Assistant
DX: J10.1 Influenza due to other identified influenza virus with other respiratory manifestations (principal); Z11.52 Encounter for screening for COVID-19; J44.9 Chronic obstructive pulmonary disease, unspecified
CPT/HCPCS: 71045; 87637; 93005; 94640; 99284

== ENCOUNTER 2025-01-21 13:02 | Outpatient (CLI) | payer MEDICAID, SELFPAY ==
[2024-08-31 10:23] VITALS: BP 127/91; BMI 54.8
== END 2025-01-21 13:03 | disposition home or self-care (01) ==
LOC: SLEEP 13:03
DX: G47.33 Obstructive sleep apnea (adult) (pediatric) (principal)
CPT/HCPCS: G0399

== ENCOUNTER 2025-01-31 13:45 | Outpatient (CLI) | payer MEDICAID, SELFPAY ==
--- NOTE | 2025-01-31 13:50 | MR_ITS ---
WS: [id number] MRI HEAD WITH CONTRAST WITH ATTENTION TO THE INTERNAL AUDITORY CANALS TECHNIQUE: Sagittal T1, T2 axial, T2 axial flair, axial susceptibility weighted imaging, axial diffusion weighted images, and coronal T2 images were obtained. Pre and post T1 axial and post T1 coronal images. ADC and FSPGR images. Post gadolinium images with attention to the internal auditory canals. Axial fiesta imaging. CLINICAL INFORMATION: DIZZINESS COMPARISON: None. FINDINGS: No evidence of restricted diffusion to suggest acute ischemia. Ventricular system and basilar cisterns are patent. No suspicious intracranial signal abnormalities. Normal altamirano-white differentiation. No significant parenchymal volume loss. Normal posterior fossa. Normal vascular flow voids at the skull base. No extra-axial fluid collections. No evidence of mass or mass effect. No hemosiderin on the susceptibility weighted images. Proximal 7th and 8th cranial nerves are normal in appearance. No evidence of enhancing IAC or CP angle mass. Normal trigeminal nerve root entry zones. No abnormal gadolinium enhancement. MR/MR iac's wo/w con* [id number] IMPRESSION: 1. No evidence of enhancing IAC or CP angle mass. Normal trigeminal nerve root entry zones. 2. Paranasal sinuses and mastoid air cells are well aerated. 3. No hemosiderin on the susceptibly weighted images.
[2025-01-31] MEDS: gadobenate dimeglumine 20 mL vial IV (14:42)
== END 2025-01-31 13:46 | disposition home or self-care (01) ==
PROVIDERS: Visit Provider Specialist
DX: R42 Dizziness and giddiness (principal)
CPT/HCPCS: 70553

== ENCOUNTER → 2025-02-08 14:13 | Outpatient (BNVA) | payer MEDICAID, SELFPAY ==
[2025-02-05 07:44] VITALS: BP 144/84; BMI 61.5
== END ==
PROVIDERS: Visit Provider Family Medicine
DX: M25.50 Pain in unspecified joint (principal); D72.829 Elevated white blood cell count, unspecified
CPT/HCPCS: 80053; 85025; 85651; 86038; 86140; 86200; 86431

== ENCOUNTER → 2025-02-26 15:38 | Outpatient (BNVA) | payer MEDICAID, SELFPAY ==
[2025-02-05 07:44] VITALS: BP 144/84; BMI 61.5
== END ==
PROVIDERS: PCP Family Medicine; Visit Provider Orthopaedic Surgery
DX: M54.2 Cervicalgia (principal); G89.29 Other chronic pain
CPT/HCPCS: 72050

== ENCOUNTER 2025-03-07 17:29 | Emergency (ER) | payer MEDICAID, SELFPAY ==
[2025-02-05 07:44] VITALS: BP 144/84; BMI 61.5
[2025-03-07 17:33] VITALS: BP 118/76; PULSE 118; RESP 17; TEMP 36.7; O2SAT 97; BMI 61.4
--- NOTE | 2025-03-07 17:38 | W.ED.LOWEXIN ---
HPI - Extremity Injury (Lower) General: Chief Complaint: Extremity Injury, Lower Stated Complaint: left ankle pain Time Seen by Provider: 03/07/25 17:38 Source: patient Mode of arrival: ambulatory Limitations: no limitations History of Present Illness: Patient is a 50-year-old female presents to ED today with complaint of left ankle pain that she sustained earlier today after her scooter accidentally fell onto it and twisted it. She is ambulatory here without any assistance. She is having pain to the lateral aspect of the ankle. She has not noticed any significant swelling or bruising. She has no other complaints at this time. complaint: ankle injury Onset (ago): hour(s) Injury: Left: ankle Place: home Severity: moderate Relieving factors: immobilization Exacerbating factors: weight bearing, movement and palpation Context: direct blow and other (twisted) Associated symptoms: Reports no associated symptoms Other symptoms: none Related Data Previous Rx's ?Medication ?Instructions ?Recorded budesonide-formoterol HFA 160 2 puff inhalation Q12H #10.2 grams 03/05/24 mcg-4.5 mcg/actuation aerosol inhaler (Symbicort) albuterol sulfate 1.25 mg/3 mL 1.25 mg (3 mL) inhalation QID PRN 08/06/24 solution for nebulization shortness of breath or wheezing #75 mL albuterol sulfate 90 mcg/actuation 2 puff inhalation Q4H PRN 10/16/24 aerosol inhaler (Ventolin HFA) shortness of breath or wheezing #8.5 grams tiotropium bromide 18 mcg capsule 1 cap inhalation DAILY #60 10/16/24 with inhalation device (Spiriva inhalations with HandiHaler) hydroxyzine pamoate 50 mg capsule 50 mg PO BID PRN anxiety #60 caps 12/03/24 venlafaxine 150 mg 150 mg PO QAM #30 caps 12/03/24 capsule,extended release 24 hr (Effexor XR) venlafaxine 75 mg capsule,extended 75 mg PO QAM #30 caps 12/03/24 release 24 hr (Effexor XR) estradiol 2 mg tablet 2 mg PO DAILY #30 tabs 12/27/24 fexofenadine 180 mg tablet 180 mg PO DAILY #30 tabs 12/27/24 (Breanna Hives) pantoprazole 40 mg tablet,delayed 40 mg PO BID #60 tabs 12/27/24 release CPAP mask, tubing, and supplies #1 ea 12/28/24 Shower chair #1 ea 12/28/24 CPAP 6-16 cm mmHg setting with #1 ea 01/25/25 mask, tubing and supplies ferrous sulfate 325 mg (65 mg 325 mg PO DAILY #90 tabs 02/11/25 iron) tablet,delayed release tizanidine 4 mg tablet 4 mg PO BID PRN muscle spasticity 02/13/25 #60 tabs metoprolol succinate 50 mg 50 mg PO DAILY #30 tabs 02/25/25 tablet,extended release 24 hr Allergies Allergy/AdvReac Type Severity Reaction Status Date / Time penicillin G Allergy Severe ALGY-Rash Verified 03/05/25 12:15 Beef Containing Products Allergy Intermediate ADR-Gastrointestinal Verified 03/05/25 12:15 Upset Review of Systems Musc: Reports: joint pain (L ankle); Denies: extremity pain, extremity swelling, joint swelling, joint redness or joint warmth Neuro: Denies: numbness in extremities or sensory changes PFSH ED PFSH: Medical History Tachycardia New onset of headaches Diarrhea Borderline personality disorder Psychiatric care Encounter for pre-bariatric surgery counseling and education Posterior right knee pain Plantar fasciitis, bilateral Postmenopausal Arthritis, midfoot Hot flashes due to menopause Nicotine dependence, cigarettes, uncomplicated Chronic post-traumatic stress disorder Generalized anxiety disorder Major depressive disorder, recurrent, moderate Obesity GERD (gastroesophageal reflux disease) Chronic pain Surgical History Hx of colonoscopy History of esophagogastroduodenoscopy (EGD) 2 yrs ago History of laparoscopic cholecystectomy (~2014) History of hysterectomy (~2018) History of dilation and curettage (~2012) History of tubal ligation (~2002) History of 3 sections 1993,1999,2002 History of foot surgery BILATERAL- PLANTAR FASCITIS RELEASE Family History Father Hypertension Heart disease Diabetes Mother Thyroid disease Diabetes Obesity Grandmother Obesity Other Helicobacter pylori gastritis Denies family history of Anesthesia complication Bleeding disorder Social History Smoking and tobacco/nicotine status: current every day tobacco/nicotine user (ABOUT A PACK A DAY) cigarettes Packs smoked per day: 1 Years cigarettes smoked: 32 Quit status (tobacco/nicotine): considering quitting Second hand smoke exposure: Yes Alcohol intake: never Substance/Drug Use: never Adopted: No Caregiver/support person: No Lives independently: Yes Household members: significant other Housing: Manufactured/Mobile home Marital status: Single Number of children: 6 Number of grandchildren: 3 Highest education level completed: GED or Equivalent service: No Current occupational status: employed 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 Current occupational exposures/hazards: No Pets and animals: Yes Pets & animals: dog(s) Leisure activites: fishing and other Leisure activities details: watch TV Sexually active: Yes Do you think of yourself as: Lesbian/Harmon/Homosexual Current gender identity: Female Flakita/Judaism: None Special flakita needs: No Agree to transfusion: Yes Female Reproductive History: Para: 3 Physical Exam Const: COMMON NORMALS: no acute distress, no limitations and alert NUTRITIONAL APPEARANCE: obese morbidly obese (BMI 61.4) Extremity: GENERAL: Yes normal exam except as noted LEFT LOWER EXTREMITY: Yes ankle joint (TTP lateral L ankle; no bony deformity ) Left ankle: Yes inspection (normal gross inspection ) and Yes neurovascular exam (normal) Neuro: COMMON NORMALS: moves all extremities, no focal motor deficits, no sensory deficits noted and gait normal SENSORIUM/ORIENTATION: Yes alert Course Vital Signs: Vital signs: Vital Signs Temperature 98.1 F 03/07/25 17:33 Pulse Rate 118 H 03/07/25 17:33 Respiratory Rate 17 03/07/25 17:33 Blood Pressure 118/76 03/07/25 17:33 Pulse Oximetry 97 03/07/25 17:33 Oxygen Delivery Me thod Room Air 03/07/25 17:33 MDM - Extremity Injury (Lower) Medical Decision Making XR unremarkable. Will JOSE LUIS wrap. She declines crutches. Discussed RICE therapy. Lab Data Radiology Impressions Ankle X-Ray 03/07/25 17:40 IMPRESSION: No fracture identified. XR interpretation done by ED provider, pending radiology final review Discharge Plan Discharge Patient Disposition: Home Clinical Impression: Left ankle sprain Qualifiers: Encounter type: initial encounter Involved ligament of ankle: unspecified ligament Qualified Code(s): S93.402A - Sprain of unspecified ligament of left ankle, initial encounter Condition: Stable Prescriptions: No Action tiotropium bromide [Spiriva with HandiHaler] 18 mcg capsule, w/inhalation device 1 cap inhalation DAILY Qty: 60 5RF Rx Instructions: puncture 1 cap using device; one dose = 2 inhalations albuterol sulfate [Ventolin HFA] 90 mcg/actuation HFA aerosol inhaler 2 puff inhalation Q4H PRN (Reason: shortness of breath or wheezing) Qty: 8.5 5RF fexofenadine [Breanna Hives] 180 mg tablet 180 mg PO DAILY Qty: 30 2RF estradiol 2 mg tablet 2 mg PO DAILY Qty: 30 2RF Rx Instructions: Take 1 tablet by mouth once daily pantoprazole 40 mg tablet,delayed release (DR/EC) 40 mg PO BID Qty: 60 2RF (DME) Shower chair 300 pound capacity See Rx Instructions .Route .MEDSUPPLY Qty: 1 0RF Rx Instructions: As directed (DME) CPAP mask, tubing, and supplies See Rx Instructions .Route .MEDSUPPLY Qty: 1 0RF Rx Instructions: As directed tizanidine 4 mg tablet 4 mg PO BID PRN (Reason: muscle spasticity) Qty: 60 0RF budesonide-formoterol [Symbicort] 160-4.5 mcg/actuation HFA aerosol inhaler 2 puff inhalation Q12H Qty: 10.2 5RF albuterol sulfate 1.25 mg/3 mL solution for nebulization 1.25 mg inhalation QID PRN (Reason: shortness of breath or wheezing) Qty: 75 0RF hydroxyzine pamoate 50 mg capsule 50 mg PO BID PRN (Reason: anxiety) Qty: 60 3RF Rx Instructions: Take one capsule twice per day as needed for anxiety venlafaxine [Effexor XR] 75 mg capsule,extended release 24hr 75 mg PO QAM Qty: 30 6RF venlafaxine [Effexor XR] 150 mg capsule,extended release 24hr 150 mg PO QAM Qty: 30 6RF (DME) CPAP 6-16 cm mmHg setting with mask, tubing and supplies See Rx Instructions .ROUTE .MEDSUPPLY Qty: 1 0RF Rx Instructions: As directed ferrous sulfate 325 mg (65 mg iron) tablet,delayed release (DR/EC) 325 mg PO DAILY Qty: 90 1RF metoprolol succinate 50 mg tablet extended release 24 hr 50 mg PO DAILY Qty: 30 2RF Discharge Orders: Discharge ED (Routine); Ordered 03/07/25 Ordered By: Anne-Marie Fountain Referrals: Tatyana Bhatia DO [Primary Care Provider] - Patient Instructions: Ankle Sprain (DC), RICE Therapy Print Language: Macedonian Coding Level of Care Code ED Informatics Coordinator for Camille Ibarra
--- NOTE | 2025-03-07 17:40 | XRR_ITS ---
PROCEDURE INFORMATION: Exam: XR Left Ankle Exam date and time: 03/07/2025 6:12 PM Age: 50 years old Clinical indication: Pain; Ankle; Left; Additional info: Hit left ankle on scooter today with lateral left ankle pain and swelling TECHNIQUE: Imaging protocol: Radiologic exam of the left ankle. Views: 3 or more views. COMPARISON: [place] [id number] ORTH 11/25/2020 1:34 PM FINDINGS: Bones/joints: No fracture identified. Ankle joint appears maintained/intact. Moderate plantar calcaneal spur is seen. Base of the 5th metatarsal appears unremarkable. No acute osseous abnormality. Soft tissues: Suggestion of soft tissue swelling though some appearance could be related to body habitus. XR/XR ankle LT min 3V* [id number] IMPRESSION: No fracture identified.
== END 2025-03-07 18:43 | disposition home or self-care (01) ==
PROVIDERS: Emergency Provider Physician Assistant; PCP Family Medicine
DX: S93.402A Sprain of unspecified ligament of left ankle, initial encounter (principal); W19.XXXA Unspecified fall, initial encounter
CPT/HCPCS: 73610; 99283

== ENCOUNTER 2025-03-12 14:25 | Emergency (ER) | payer MEDICAID, SELFPAY ==
[2025-02-05 07:44] VITALS: BP 144/84; BMI 61.5
[2025-03-12 14:40] VITALS: BP 115/76; PULSE 110; RESP 20; TEMP 36.6; O2SAT 95
--- NOTE | 2025-03-12 15:30 | XR_ITS ---
WS: [id number] Exam: XR shoulder LT min 2V* [id number] Date/Time of Exam: 03/12/2025 3:38 PM Reason For Exam: trauma; fall No fracture or dislocation. The joints are maintained. Normal soft tissues. XR/XR shoulder LT min 2V* [id number] IMPRESSION: 1. No acute fracture.
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
== END 2025-03-12 16:11 | disposition home or self-care (01) ==
PROVIDERS: Emergency Provider Physician Assistant; PCP Family Medicine
DX: S49.92XA Unspecified injury of left shoulder and upper arm, initial encounter (principal); F17.210 Nicotine dependence, cigarettes, uncomplicated; X58.XXXA Exposure to other specified factors, initial encounter
CPT/HCPCS: 73030; 99283

== ENCOUNTER → 2025-04-18 10:28 | Outpatient (BNVA) | payer MEDICAID, SELFPAY ==
[2025-02-05 07:44] VITALS: BP 144/84; BMI 61.5
== END ==
PROVIDERS: PCP Family Medicine; Referring Provider Family Medicine; Visit Provider Internal Medicine Rheumatology
DX: M25.50 Pain in unspecified joint (principal)
CPT/HCPCS: 36415; 82306; 83520; 86480; 86704; 86803; 86812; 87340

== ENCOUNTER → 2025-05-07 10:20 | Outpatient (BNVA) | payer MEDICAID, SELFPAY ==
[2025-02-05 07:44] VITALS: BP 144/84; BMI 61.5
== END ==
PROVIDERS: PCP Family Medicine; Visit Provider Family Medicine
DX: D50.9 Iron deficiency anemia, unspecified (principal); D50.8 Other iron deficiency anemias; R06.02 Shortness of breath; R06.01 Orthopnea; Z79.899 Other long term (current) drug therapy
CPT/HCPCS: 80053; 80076; 82248; 82565; 82728; 83550; 83880; 85025; 85651; 86140

== ENCOUNTER 2025-06-07 10:00 | Oncology outpatient (recurring) (ONCR) | payer MEDICAID, SELFPAY ==
[2025-02-05 07:44] VITALS: BP 144/84; BMI 61.5
[2025-05-27 13:26] VITALS: BP 109/79; PULSE 92; RESP 18; TEMP 36.3; O2SAT 98
[2025-05-27] MEDS: iron sucrose 200 MG in sodium chloride 0.9% (100 ml) 100 ML IV (13:34)
[2025-05-27 14:25] VITALS: BP 135/78; PULSE 85; RESP 18
[2025-05-29] MEDS: iron sucrose 200 MG in sodium chloride 0.9% (100 ml) 100 ML IV (13:12)
[2025-05-29 13:55] VITALS: BP 125/76; PULSE 88; RESP 16; TEMP 36.7; O2SAT 99
[2025-05-31] MEDS: iron sucrose 200 MG in sodium chloride 0.9% (100 ml) 100 ML IV (10:03)
[2025-05-31 10:40] VITALS: BP 116/82; PULSE 82; TEMP 36.2; O2SAT 98
[2025-06-04] MEDS: iron sucrose 200 MG in sodium chloride 0.9% (100 ml) 100 ML IV (14:03)
[2025-06-04 14:43] VITALS: BP 118/83; PULSE 83; RESP 17; TEMP 35.7; O2SAT 96
[2025-06-07] MEDS: iron sucrose 200 MG in sodium chloride 0.9% (100 ml) 100 ML IV (10:15)
[2025-06-07 10:48] VITALS: BP 111/74; PULSE 84; TEMP 36.3; O2SAT 94
== END 2025-06-20 23:59 | disposition home or self-care (01) ==
PROVIDERS: Visit Provider Family Medicine
DX: Z53.9 Procedure and treatment not carried out, unspecified reason; D50.8 Other iron deficiency anemias; Z79.899 Other long term (current) drug therapy
CPT/HCPCS: 96365; J1756; J7050

== ENCOUNTER → 2025-06-14 11:16 | Outpatient (BNVA) | payer MEDICAID, SELFPAY ==
[2025-02-05 07:44] VITALS: BP 144/84; BMI 61.5
== END ==
PROVIDERS: PCP Family Medicine; Visit Provider Family Medicine
DX: Z13.6 Encounter for screening for cardiovascular disorders (principal); R60.0 Localized edema; D50.8 Other iron deficiency anemias; D50.9 Iron deficiency anemia, unspecified
CPT/HCPCS: 80048; 82728; 83550; 85025

== ENCOUNTER → 2025-07-09 13:12 | Outpatient (BNVA) | payer MEDICAID, SELFPAY ==
[2025-07-04 11:44] VITALS: BP 144/84; BMI 61.5
== END ==
PROVIDERS: PCP Family Medicine; Visit Provider Family Medicine
DX: R10.2 Pelvic and perineal pain (principal)
CPT/HCPCS: 81000; 81513; 87086; 87481; 87491; 87591; 87661

== ENCOUNTER 2025-08-13 16:57 | Emergency (ER) | payer MEDICAID, SELFPAY ==
[2025-07-10 14:56] VITALS: BP 144/84; BMI 61.5
[2025-08-13 17:00] VITALS: BP 136/73; PULSE 86; RESP 18; TEMP 36.5; O2SAT 97; BMI 61.4
--- OUTSIDE RECORDS SUMMARY | 2025-08-13 17:06 | XMS_ITS | Clinical Summary ---
Author Organization [facility] Address [address] Attn: [place] [address] Care Team Providers Care Field Recorder Name Role Phone Tatyana Bhatia Primary Care Provider [phone] Allergies Active Allergy Reactions Criticality Noted Date Comments Penicillins Rash Low 10/27/2018 Medications pantoprazole (PROTONIX) 40 mg Tablet, Delayed Release (E.C.) Take 40 mg by mouth daily. 12/05/2020 Active estradioL (ESTRACE) 1 mg tablet Take 1 mg by mouth daily. 12/05/2020 Active hydrOXYzine HCL (ATARAX) 25 mg tablet Take 25 mg by mouth daily at bedtime. 12/05/2020 Active venlafaxine (EFFEXOR XR) 150 mg Extended Release 24 hour capsule Take 150 mg by mouth daily. 09/25/2018 Active Active Problems No known active problems Encounters Date Type Department Care Team Description 08/06/2025 External Device Data [facility] Provider, Abstract 07/30/2025 External Device Data [facility] Provider, Abstract 06/25/2025 External Device Data [facility] Provider, Abstract 06/11/2025 External Device Data [facility] Provider, Abstract 06/11/2025 External Device Data [facility] Provider, Abstract 06/11/2025 External Device Data [facility] Provider, Abstract 06/06/2025 1:00 PM CDT Office Visit [facility] [address] [place] [id number] Esteban Gilliland AU.D Dizziness (Primary Dx) from Last 3 Months Social History Tobacco Use Types Packs/Day Years Used Date Smoking Tobacco: Every Day Cigarettes Smokeless Tobacco: Never Alcohol Use Standard Drinks/Week Comments Never 0 (1 standard drink = 0.6 oz pur e alcohol) Comments Unknown Sex and Gender Information Value Date Recorded Sex Assigned at Not on file Legal Sex Female 5:13 AM COAT OPERATOR Gender Identity Not on file Sexual Orientation Not on file Last Filed Vital Signs Vital Sign Reading Time Taken Comments Blood Pressure 151/77 12/05/2020 6:16 PM COAT OPERATOR Pulse 93 10/09/2018 1:59 PM COAT OPERATOR Temperature 36.2 C (97.2 F) 12/05/2020 6:16 PM COAT OPERATOR Respiratory Rate 24 12/05/2020 6:16 PM COAT OPERATOR Oxygen Saturation - - Inhaled Oxygen Concentration - - Weight 134.6 kg (296 lb 12.8 oz) 12/05/2020 6:16 PM COAT OPERATOR Height 154.9 cm (5' 1 ) 12/05/2020 6:16 PM COAT OPERATOR Body Mass Index 56.08 12/05/2020 6:16 PM COAT OPERATOR Plan of Treatment Health Maintenance Due Date Last Done Comments DTAP/TDAP/TD VACCINES (1 - Tdap) 01/23/1996 HEPATITIS B VACCINES (1 of 3 - 19+ 3-dose series) 02/1996 HPV/Cotest (21-29) 1998 CERVICAL CANCER SCREENING 2007 HPV/Cotest (30-65) 2007 PAP SMEAR 2007 BREAST CANCER SCREENING 2017 COLORECTAL SCREENING 2022 Colorectal Cancer Screening 2022 FIT-DNA Q 3 years 2022 FIT/FOBT Q 1 year 2022 Flex Sig/CT Colonography Q 5 years 2022 INFLUENZA VACCINE (#1) 2025 Procedures Procedure Name Priority Date/Time Associated Diagnosis Comments DE VSTBLR FUNCJ NYSTAG FOVL&PERPH STIMJ OSCIL TRK Routine 06/06/2025 3:05 PM CDT Dizziness DE CALORIC VESTIBULAR TEST W/REC BI BITHERMAL Routine 06/06/2025 3:05 PM CDT Dizziness from Last 3 Months Results * DE CALORIC VESTIBULAR TEST W/REC BI BITHERMAL, DE VSTBLR FUNCJ NYSTAG FOVL&PERPH STIMJ OSCIL TRK (06/06/2025 3:05 PM CDT) Narrative Esteban Gilliland AU.D - 06/06/2025 3:05 PM CDT Esteban Gilliland AU.D 06/06/2025 3:19 PM SUBJECTIVE: Sue Dietrich is a 50 y.o. female seen today for videonystagmography testing. She reports she developed intermittent episodes of imbalance about 3 years ago. The imbalance episodes can last up to 7 days. She states she has not fallen due to the imbalance. She denies a spinning sensation. She states she has not had problems with her heart. She does have history of recurrent severe occipital headaches. She does report having intermittent ringing tinnitus. She does have problems hearing at times. OBJECTIVE: Sue was referred by Kyrie Andrade MD. ASSESSMENT: The VNG showed no gaze, spontaneous, post head shake, or positional nystagmus. The [place]bridge-Hallpike test for benign paroxysmal positional vertigo (BPPV) was negative for both sides. Saccadic eye velocity and accuracy were normal. Visual pursuit and optokinetic tests were normal and symmetrical. The patient demonstrated a caloric Reduced Vestibular Response (RVR) of 28% in the left ear. This value exceeds the 20% normal limit for RVR. From the 4 irrigations, right beating nystagmus with 8% stronger than the left beating nystagmus. This value for Directional Preponderance is within normal limits. PLAN: It was recommended that Sue follow-up with Dr. Andrade as planned. Esteban [facility] ORDERABLES Fi nal Result from Last 3 Months Insurance [facility] [employer] MEDICAID Care Teams Field Recorder Relationship Specialty Start Date End Date Tatyana Bhatia DO PCP - General Family Practice 12/05/20
--- OUTSIDE RECORDS SUMMARY | 2025-08-13 17:06 | XMS_ITS | Encounter Summary ---
Author Organization [employer] [facility] Address [address] [place] [address] Care Team Providers Care Pearl Cutter Name Role Phone Tatyana Bhatia DO Primary Care Provider [phone]- [phone] Encounter Details Date Type Department Care Team (Late st Contact Info) Description 08/06/2025 External Device Data [facility] Provider, Abstract NO ADDRESS ON FILE Social History Tobacco Use Types Packs/Day Years Used Date Smoking Tobacco: Every Day Cigarettes Smokeless Tobacco: Never Alcohol Use Standard Drinks/Week Comments Never 0 (1 standard drink = 0.6 oz pur e alcohol) Comments Unknown Sex and Gender Information Value Date Recorded Sex Assigned at Not on file Legal Sex Female 5:13 AM CAUL FAT PULLER Gender Identity Not on file Sexual Orientation Not on file documented as of this encounter Plan of Treatment Not on file documented as of this encounter Visit Diagnoses Not on filedocumented in this encounter Care Teams Pearl Cutter Relationship Specialty Start Date End Date Tatyana Bhatia DO PCP - General Family Practice 12/05/20 documented as of this encounter
--- OUTSIDE RECORDS SUMMARY | 2025-08-13 17:06 | XMS_ITS | Clinical Summary ---
Author Organization [facility] Address [address] [place] [address] Phone Care Team Providers Care Senior Courtroom Clerk Name Role Phone Tatyana Bhatia Harpreet FERRELL Primary Care Provider [phone]- [phone] Allergies Active Allergy Reactions Criticality Noted Date Comments Penicillins Rash Low 10/27/2018 Medications venlafaxine (EFFEXOR XR) 150 mg Extended Release 24 hour capsule Take 150 mg by mouth daily. Active pantoprazole (PROTONIX) 40 mg Tablet, Delayed Release (E.C.) Take 40 mg by mouth daily. Active hydrOXYzine HCL (ATARAX) 25 mg tablet Take 25 mg by mouth daily at bedtime. Active estradioL (ESTRACE) 1 mg tablet Take 1 mg by mouth daily. Active Active Problems No known active problems Social History Tobacco Use Types Packs/Day Years Used Date Smoking Tobacco: Every Day Cigarettes Smokeless Tobacco: Never Alcohol Use Standard Drinks/Week Comments Never 0 (1 standard drink = 0.6 oz pur e alcohol) Comments No Sex and Gender Information Value Date Recorded Sex Assigned at Not on file Legal Sex Female 12:20 PM CDT Gender Identity Not on file Sexual Orientation Not on file Last Filed Vital Signs Vital Sign Reading Time Taken Comments Blood Pressure 151/77 12/05/2020 6:16 PM CABLE DISPATCHER Pulse 93 10/09/2018 1:59 PM CABLE DISPATCHER Temperature 36.2 C (97.2 F) 12/05/2020 6:16 PM CABLE DISPATCHER Respiratory Rate 24 12/05/2020 6:16 PM CABLE DISPATCHER Oxygen Saturation 97% 12/05/2020 6:16 PM CABLE DISPATCHER Inhaled Oxygen Concentration - - Weight 134.6 kg (296 lb 12.8 oz) 12/05/2020 6:16 PM CABLE DISPATCHER Height 154.9 cm (5' 1 ) 12/05/2020 6:16 PM CABLE DISPATCHER Body Mass Index 56.08 12/05/2020 6:16 PM CABLE DISPATCHER Plan of Treatment Health Maintenance Due Date [...] 5 years 2022 INFLUENZA VACCINE (#1) 2025 Insurance [employer] Care Teams Senior Courtroom Clerk Relationship Specialty Start Date End Date Tatyana Bhatia DO PCP - General Family Practice 12/05/20
--- NOTE | 2025-08-13 17:14 | XRR_ITS ---
PROCEDURE INFORMATION: Exam: XR Chest Exam date and time: 08/13/2025 5:22 PM Age: 50 years old Clinical indication: Pain; Chest pressure; Additional info: Left middle ttp/sob TECHNIQUE: Imaging protocol: Radiologic exam of the chest. Views: 1 view. COMPARISON: CR XR chest 1V portable [id number] 01/01/2025 5:26 PM FINDINGS: Lungs: Unremarkable. No consolidation. Pleural spaces: Unremarkable. No pleural effusion. No pneumothorax. Heart/Mediastinum: Unremarkable. No cardiomegaly. Bones/joints: Unremarkable. XR/XR chest 1V portable [id number] IMPRESSION: No acute findings.
--- NOTE | 2025-08-13 17:17 | W.ED.BACK ---
HPI - Back Pain/Injury General: Chief Complaint: Back Pain/Injury Stated Complaint: Left quad and back pain Time Seen by Provider: 08/13/25 16:59 Source: patient Mode of arrival: ambulatory Limitations: no limitations History of Present Illness: Patient is a 50-year-old female who presents the emergency department complaining of left middle back and left flank pain for the past 5 days. Reports a history of fibromyalgia and rheumatoid arthritis, states that this is atraumatic pain and that she noticed it while she was cleaning dishes. Has been constant since onset, but states if she rests it will make the pain go away and any movement sharply exacerbates it. It is nonradiating, she denies any abdominal pain or nausea/vomiting/diarrhea. No central chest pain, states that she does have a history of COPD and that deep breaths also make the pain worse. No urinary symptoms and denies history of kidney stones. She has reportedly taken [id number] pain medications as well as muscle relaxers with no relief. She does have a stars coordinator that she sees regularly. Vitals are stable at this time, nontoxic-appearing and no further complaints. Denies any rash. MD elicited complaint: back pain and other (Flank pain) Onset (ago): day(s) Timing: constant Severity: moderate Similar Symptoms Previously: Yes Quality: sharp and stabbing Location: thoracic spine and left flank Exacerbating factors: movement and deep breaths Associated symptoms: Deny abdominal pain, difficulty walking, dysuria, fecal incontinence, fever(s), hematuria or syncope Related Data Previous Rx's ?Medication ?Instructions ?Recorded budesonide-formoterol HFA 160 2 puff inhalation Q12H #10.2 grams 03/05/24 mcg-4.5 mcg/actuation aerosol inhaler (Symbicort) albuterol sulfate 90 mcg/actuation 2 puff inhalation Q4H PRN 10/16/24 aerosol inhaler (Ventolin HFA) shortness of breath or wheezing #8.5 grams pantoprazole 40 mg tablet,delayed 40 mg PO BID #60 tabs 12/27/24 release CPAP mask, tubing, and supplies #1 ea 12/28/24 Shower chair #1 ea 12/28/24 CPAP 6-16 cm mmHg setting with #1 ea 01/25/25 mask, tubing and supplies albuterol sulfate 1.25 mg/3 mL 1.25 mg (3 mL) inhalation QID PRN 03/22/25 solution for nebulization shortness of breath or wheezing #75 mL fluticasone propionate 50 2 spray intranasal BID #16 grams 03/22/25 mcg/actuation nasal spray,suspension (Flonase Allergy Relief) venlafaxine 150 mg 150 mg PO QAM #30 caps 05/10/25 capsule,extended release 24 hr (Effexor XR) venlafaxine 75 mg capsule,extended 75 mg PO QAM #30 caps 05/10/25 release 24 hr (Effexor XR) metoprolol succinate 50 mg 50 mg PO DAILY #90 tabs 06/03/25 tablet,extended release 24 hr tiotropium bromide 18 mcg capsule 1 cap inhalation DAILY #60 06/14/25 with inhalation device (Spiriva inhalations with HandiHaler) estradiol 2 mg tablet 2 mg PO DAILY #30 tabs 07/05/25 hydroxyzine pamoate 50 mg capsule 50 mg PO BID #60 caps 07/05/25 fexofenadine 180 mg tablet 180 mg PO DAILY #30 tabs 07/09/25 (Breanna Hives) leflunomide 20 mg tablet 20 mg PO DAILY #30 tabs 07/10/25 fluconazole 150 mg tablet 150 mg PO DAILY #2 tabs 07/11/25 tirzepatide (weight loss) 2.5 See Rx Instructions .Route 08/01/25 mg/0.5 mL subcutaneous pen .COMPLEX #4 mL injector (Zepbound) furosemide 20 mg tablet (Lasix) 20 mg PO .COMPLEX #30 tabs 08/12/25 methocarbamol 750 mg tablet 750 mg PO Q8H 5 days #15 tabs 08/13/25 prednisone 10 mg tablets in a dose 10 mg PO DIRECTED #21 ea 08/13/25 pack Allergies Allergy/AdvReac Type Severity Reaction Status Date / Time penicillin G Allergy Severe ALGY-Rash Verified 08/13/25 17:05 Beef Containing Products Allergy Intermediate ADR-Gastrointestinal Verified 08/13/25 17:05 Upset Review of Systems General: Reports: 10 or more systems reviewed and unremarkable except in HPI and below Const: Reports: other (denies trauma); Denies: fever(s), change in weight or night sweats Card: Denies: chest pain, lightheadedness or syncope Resp: Denies: dyspnea GI: Denies: abdominal pain or fecal incontinence : Reports: flank pain (left); Denies: difficulty voiding, dysuria, urinary incontinence or hematuria Musc: Reports: back pain; Denies: neck pain or extremity pain Skin/Breast: Denies: rash or skin pain Neuro: Denies: headache(s), numbness in extremities, weakness in extremities, sensory changes, lack of coordination, difficulty walking, frequent falls or involuntary movements PFSH ED PFSH: Medical History (Updated 08/13/25 @ 18:24 by LARISA Swanson) High risk medication use Tachycardia New onset of headaches Diarrhea Borderline personality disorder Psychiatric care Encounter for pre-bariatric surgery counseling and education Posterior right knee pain Plantar fasciitis, bilateral Postmenopausal Arthritis, midfoot Hot flashes due to menopause Nicotine dependence, cigarettes, uncomplicated Chronic post-traumatic stress disorder Generalized anxiety disorder Major depressive disorder, recurrent, moderate Obesity GERD (gastroesophageal reflux disease) Chronic pain Surgical History Hx of colonoscopy History of esophagogastroduodenoscopy (EGD) 2 yrs ago History of laparoscopic cholecystectomy (~2014) History of hysterectomy (~2018) History of dilation and curettage (~2012) History of tubal ligation (~2002) History of 3 sections 1993,1999,2002 History of foot surgery BILATERAL- PLANTAR FASCITIS RELEASE Family History Father Hypertension Heart disease Diabetes Mother Thyroid disease Diabetes Obesity Grandmother Obesity Other Helicobacter pylori gastritis Denies family history of Anesthesia complication Bleeding disorder Social History Smoking and tobacco/nicotine status: unknown if used tobacco/nicotine Quit status (tobacco/nicotine): considering quitting Second hand smoke exposure: Yes Alcohol intake: never Substance/Drug Use: never Adopted: No Caregiver/support person: No Lives independently: Yes Household members: significant other Housing: Manufactured/Mobile home Marital status: Single Number of children: 6 Number of grandchildren: 3 Highest education level completed: GED or Equivalent service: No Current occupational status: employed 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 Current occupational exposures/hazards: No Pets and animals: Yes Pets & animals: dog(s) Leisure activites: fishing and other Leisure activities details: watch TV Sexually active: Yes Do you think of yourself as: Lesbian/Harmon/Homosexual Current gender identity: Female Flakita/Mosque: None Special flakita needs: No Agree to transfusion: Yes Female Reproductive History: Para: 3 Physical Exam Const: COMMON NORMALS: no acute distress, patient oriented x3, no limitations and alert NUTRITIONAL APPEARANCE: obese morbidly obese OTHER: Nontoxic Neck/C-Spine: COMMON NORMALS: full ROM OTHER: No cervical spine tenderness to palpation Chest: COMMONS NORMALS: normal palpation of entire chest wall Resp: COMMON NORMALS: normal respiratory effort, No retractions, No use of accessory muscles and clear to auscultation bilaterally AUSCULTATION: clear to auscultation bilaterally Cardio: COMMON NORMALS: regular rate, regular rhythm, S1 normal heart sound present and S2 normal heart sound present RATE: regular rate RHYTHM: regular rhythm HEART SOUNDS: S1 normal heart sound present and S2 normal heart sound present GI: COMMON NORMALS: Soft to palpation and non-tender INSPECTION: Yes central obesity PALPATION: Yes Soft to palpation : COMMON NORMALS: Yes no CVA tenderness BLADDER/KIDNEY EXAM: Yes no CVA tenderness Back/Pelvis: COMMON NORMALS: no CVA tenderness OTHER: Normal visual examination. No spinous process tenderness. Easily reproducible tenderness to palpation to left posterior ribs with no step-off deformity. Pain with range of motion of the back. Extremity: COMMON NORMALS: normal to inspection and full ROM Neuro: COMMON NORMALS: patient oriented x3, moves all extremities, no focal motor deficits, no sensory deficits noted, deep tendon reflexes 2+ bilaterally and gait normal SENSORIUM/ORIENTATION: Yes alert Skin: COMMON NORMALS: no rashes or lesions noted GENERAL SKIN EXAM: no rashes or lesions noted Course Vital Signs: Vital signs: Vital Signs Temperature 97.7 F 08/13/25 17:00 Pulse Rate 82 08/13/25 18:00 Respiratory Rate 18 08/13/25 17:00 Blood Pressure 134/79 08/13/25 18:00 Pulse Oximetry 94 08/13/25 18:00 Oxygen Delivery Me thod Room Air 08/13/25 18:00 MDM - Back Pain/Injury Medical Decision Making Patient presenting with 5 days of left mid back and flank pain. She has history of chronic pain, she sees pain specialist, Ortho/spine, and rheumatology, notably has a history of fibromyalgia and rheumatoid arthritis. No urinary symptoms to indicate any possible kidney stone or pyelonephritis, she arrives with stable vitals and has remained this way throughout ED stay. Nontoxic-appearing on exam was easily reproducible tenderness to palpation to the left mid back area, however no CVA tenderness with strike exam. Morbidly obese female. Her CBC and CMP was unremarkable, urinalysis does not show any concerns of potential infection or nephroureterolithiasis. A chest x-ray does not show any concerns. I have little to no suspicion that this pain is of acute etiology, suspect that this is all chronic and she is to follow-up with her specialist. Will do steroid Dosepak and muscle relaxers for home, and she is given general return precautions to the ED. Labs 08/13/25 17:36 08/13/25 17:36 Radiology Impressions Chest X-Ray 08/13/25 17:14 IMPRESSION: No acute findings. Laboratory Results WBC 8.56 10^3/uL (3.29-11.43) 08/13/25 17:36 RBC 4.52 10^6/uL (3.85-5.65) 08/13/25 17:36 Hgb 12.50 g/dL (11.27-16.99) 08/13/25 17:36 Hct 38.7 % (36-47) 08/13/25 17:36 MCV 85.6 fl (85-98) 08/13/25 17:36 MCH 27.7 pg (27-33) 08/13/25 17:36 MCHC 32.3 g/dL (30-55) 08/13/25 17:36 RDW 16.2 % (12.1-15.1) H 08/13/25 17:36 Plt Count 361 10^3/cmm (157-399) 08/13/25 17:36 MPV 9.1 fL (7.4-10.4) 08/13/25 17:36 Neut % (Auto) 55.8 % 08/13/25 17:36 Lymph % (Auto) 37.6 % 08/13/25 17:36 Swisher % (Auto) 5.0 % 08/13/25 17:36 Eos % (Auto) 1.2 % 08/13/25 17:36 Baso % (Auto) 0.2 % 08/13/25 17:36 Neut # (Auto) 4.77 10^3/uL (1.8-7.7) 08/13/25 17:36 Lymph # (Auto) 3.2 10^3/uL (0.8-4.8) 08/13/25 17:36 Swisher # (Auto) 0.4 10^3/uL (0.2-0.9) 08/13/25 17:36 Eos # (Auto) 0.1 10^3/uL (0.0-0.8) 08/13/25 17:36 Baso # (Auto) 0.0 10^3/uL (0.0-0.1) 08/13/25 17:36 Nucleated RBC % (auto) 0 % 08/13/25 17:36 Nucleated RBCs # 0.0 /100WBC 08/13/25 17:36 Sodium 137 mmol/L (136-145) 08/13/25 17:36 Potassium 4.2 mmol/L (3.5-5.1) 08/13/25 17:36 Chloride 104 mmol/L (98-107) 08/13/25 17:36 Carbon Dioxide 23 mmol/L (22-29) 08/13/25 17:36 Anion Gap 14.2 (5-19) 08/13/25 17:36 BUN 10 mg/dL (6-20) 08/13/25 17:36 Creatinine 0.6 mg/dL (0.5-0.9) 08/13/25 17:36 GFR Calculation 106.7 mL/min (90-130) 08/13/25 17:36 Glucose 115 mg/dL (65-115) 08/13/25 17:36 Calculated Osmolality 284 mOsm/kg (285-295) L 08/13/25 17:36 Calcium 8.7 mg/dL (8.5-10.5) 08/13/25 17:36 Total Bilirubin 0.2 mg/dL (0.15-1.2) 08/13/25 17:36 AST 14 U/L (0-32) 08/13/25 17:36 ALT 18 U/L (0-33) 08/13/25 17:36 Alkaline Phosphatase 71 U/L (35-105) 08/13/25 17:36 Total Protein 6.3 g/dL (6.6-8.7) L 08/13/25 17:36 Albumin 3.4 g/dL (3.5-5.2) L 08/13/25 17:36 Globulin 2.9 g/dL (1.3-4.6) 08/13/25 17:36 Urine Color Yellow (Yellow) 08/13/25 17:50 Urine Appearance Clear (CLEAR) 08/13/25 17:50 Urine pH 5.5 (5-7) 08/13/25 17:50 Ur Specific [place] 1.019 (1.005-1.030) 08/13/25 17:50 Urine Protein Negative (Negative) 08/13/25 17:50 Urine Glucose (UA) Negative (Normal) 08/13/25 17:50 Urine Ketones Negative (Negative) 08/13/25 17:50 Urine Blood Negative (Negative) 08/13/25 17:50 Urine Nitrate Negative (Negative) 08/13/25 17:50 Urine Bilirubin Negative (Negative) 08/13/25 17:50 Urine Urobilinogen 0.2 mg/dL (Negative) 08/13/25 17:50 Ur Leukocyte Esterase Negative (Negative) 08/13/25 17:50 Urine RBC 0-2 /hpf (0-2) 08/13/25 17:50 Urine WBC 0-5 /hpf (0-5) 08/13/25 17:50 Ur Squamous Epith Cells 6-10 /hpf (0-5) 08/13/25 17:50 Amorphous Sediment Not Reportable 08/13/25 17:50 Urine Bacteria 1+ /hpf (NONE) H 08/13/25 17:50 Hyaline Casts 0.40 /lpf 08/13/25 17:50 All radiology interpretation(s) finalized by discharge Discharge Plan Discharge Patient Disposition: Home Clinical Impression: Chronic back pain Qualifiers: Back pain location: thoracic back pain Back pain laterality: left Qualified Code(s): M54.6 - Pain in thoracic spine Condition: Stable Prescriptions: New prednisone 10 mg tablets,dose pack 10 mg PO DIRECTED Qty: 21 0RF Rx Instructions: see taper instructions 6 tablets on day 1, 5 tablets on day 2, 4 tablets on day 3, 3 tablets on day 4, 2 tablets on day 5, and 1 tablet a day 6. P.o. methocarbamol 750 mg tablet 750 mg PO Q8H 5 Days Qty: 15 0RF No Action albuterol sulfate [Ventolin HFA] 90 mcg/actuation HFA aerosol inhaler 2 puff inhalation Q4H PRN (Reason: shortness of breath or wheezing) Qty: 8.5 5RF pantoprazole 40 mg tablet,delayed release (DR/EC) 40 mg PO BID Qty: 60 2RF (DME) Shower chair 300 pound capacity See Rx Instructions .Route .MEDSUPPLY Qty: 1 0RF Rx Instructions: As directed (DME) CPAP mask, tubing, and supplies See Rx Instructions .Route .MEDSUPPLY Qty: 1 0RF Rx Instructions: As directed venlafaxine [Effexor XR] 75 mg capsule,extended release 24hr 75 mg PO QAM Qty: 30 6RF venlafaxine [Effexor XR] 150 mg capsule,extended release 24hr 150 mg PO QAM Qty: 30 6RF leflunomide 20 mg tablet 20 mg PO DAILY Qty: 30 3RF hydroxyzine pamoate 50 mg capsule 50 mg PO BID Qty: 60 3RF Rx Instructions: Take one capsule twice per day as needed for anxiety budesonide-formoterol [Symbicort] 160-4.5 mcg/actuation HFA aerosol inhaler 2 puff inhalation Q12H Qty: 10.2 5RF fluticasone propionate [Flonase Allergy Relief] 50 mcg/actuation spray,suspension 2 spray intranasal BID Qty: 16 1RF Rx Instructions: administer into each nostril tiotropium bromide [Spiriva with HandiHaler] 18 mcg capsule, w/inhalation device 1 cap inhalation DAILY Qty: 60 5RF Rx Instructions: puncture 1 cap using device; one dose = 2 inhalations fexofenadine [Breanna Hives] 180 mg tablet 180 mg PO DAILY Qty: 30 2RF (DME) CPAP 6-16 cm mmHg setting with mask, tubing and supplies See Rx Instructions .ROUTE .MEDSUPPLY Qty: 1 0RF Rx Instructions: As directed albuterol sulfate 1.25 mg/3 mL solution for nebulization 1.25 mg inhalation QID PRN (Reason: shortness of breath or wheezing) Qty: 75 0RF metoprolol succinate 50 mg tablet extended release 24 hr 50 mg PO DAILY Qty: 90 1RF estradiol 2 mg tablet 2 mg PO DAILY Qty: 30 2RF Rx Instructions: Take 1 tablet by mouth once daily fluconazole 150 mg tablet 150 mg PO DAILY Qty: 2 0RF Rx Instructions: 1 tab today, wait 3 days to take 2nd tab. Zepbound 2.5 mg/0.5 mL pen injector See Rx Instructions .ROUTE .COMPLEX Qty: 4 0RF Dose Instruction: INJECT 2.5MG SUBCUTANEOUSLY ONCE WEEKLY Rx Instructions: INJECT 2.5MG SUBCUTANEOUSLY ONCE WEEKLY furosemide [Lasix] 20 mg tablet 20 mg PO .COMPLEX Qty: 30 0RF Rx Instructions: Take in the AM as needed for leg swelling Discharge Orders: Discharge ED (Routine); Ordered 08/13/25 Ordered By: Quintin Pérez Referrals: Tatyana Bhatia DO [Primary Care Provider, Family Practice] Patient Instructions: Patient Portal & Prudencio Instructions Activity Restrictions/Additional Instructions: RA Flare Discharge Instructions Discharge Instructions: RA/Fibromyalgia Flare Diagnosis/ED Course: 50-year-old female with history of rheumatoid arthritis (RA) and fibromyalgia presented with 5 days of left back and flank pain. ED workup was unremarkable for acute pathology. Symptoms are attributed to a flare of her chronic pain condition. Medications Initiated: - Prednisone Dosepak (short course, oral): - Glucocorticoids remain a cornerstone for acute symptom control in RA flares, with evidence supporting short-term, low-dose use for rapid anti-inflammatory effect and joint protection. - The League Against Rheumatism (EULAR) and other consensus guidelines recommend using the minimal effective dose for the shortest duration possible to reduce risk of adverse events, including infection, osteoporosis, hypertension, and hyperglycemia. - Patients with high fibromyalgianess may have persistent pain and are at increased risk for prolonged glucocorticoid use; careful monitoring and early tapering are advised. - Typical Dosepak regimens start at 40 mg daily, tapering over 6 days; however, for RA flares, doses <=0 mg/day are preferred when possible. - Supervisor Stitching Department on potential side effects: mood changes, insomnia, GI upset, increased appetite, hyperglycemia, and infection risk. - Advise to take with food to minimize GI irritation. - If on NSAIDs, consider gastroprotection (e.g., PPI). - Supplement with calcium (1?1.5 g/day) and vitamin D (800 IU/day) during steroid use to mitigate osteoporosis risk. - If steroid course exceeds 1 month or patient is at high fracture risk, consider bisphosphonate therapy. - Methocarbamol (Robaxin): - Initiated for muscle spasm and adjunctive pain control. - Supervisor Stitching Department on sedation, dizziness, and avoid driving or operating heavy machinery until response is known. Follow-Up and Monitoring: - Schedule close outpatient follow-up with rheumatology within 1?2 weeks to reassess disease activity, pain control, and to guide steroid tapering. - Monitor for signs of infection, hyperglycemia, hypertension, mood changes, and GI symptoms. - Advise patient to report any new fever, persistent pain, weakness, or concerning symptoms promptly. Additional Instructions: - Continue baseline DMARDs as prescribed. - Encourage gentle activity as tolerated; avoid bed rest. - Use non-pharmacologic pain management strategies (heat, stretching, relaxation techniques). - Reinforce importance of medication adherence and not self-escalating doses without medical advice. Special Considerations: - Patients with overlapping fibromyalgia may have less responsiveness to anti-inflammatory therapy and higher risk of persistent steroid use; emphasize early tapering and multimodal pain management. - If symptoms worsen or new focal neurological deficits, hematuria, or systemic symptoms develop, return to ED. Summary: Short-term, low-dose glucocorticoids are effective for RA flare management, but should be tapered promptly to minimize adverse effects. Methocarbamol may provide adjunctive relief for muscle spasm. Supportive measures and close follow-up are essential for optimal outcomes. Print Language: Romansh Coding Level of Care Code ED Paper Guillotine Operator for Camille Ibarra
[2025-08-13] MEDS: orphenadrine 30 mg/mL Inj 2 mL 60 MG IM (17:39)
[2025-08-13 17:43] LABS: Hematocrit 38.7 % (36-47); Hemoglobin 12.50 g/dL (11.27-16.99); Mean Corpuscular HGB Conc 32.3 g/dL (30-55); Mean Corpuscular Hemoglobin 27.7 pg (27-33); Mean Corpuscular Volume 85.6 fl (85-98); Nucleated Red Blood Cells % 0 %; Platelet Count 361 10^3/cmm (157-399); Red Blood Count 4.52 10^6/uL (3.85-5.65); White Blood Count 8.56 10^3/uL (3.29-11.43)
[2025-08-13 17:47] VITALS: PULSE 80; O2SAT 96
[2025-08-13 18:00] VITALS: BP 134/79; PULSE 82; O2SAT 94
[2025-08-13 18:04] LABS: Glucose Urine UA Negative (Normal); Nitrate Urine Negative (Negative); Specific Gravity, Urine 1.019 (1.005-1.030)
[2025-08-13 18:08] LABS: Alanine Aminotransferase 18 U/L (0-33); Albumin Level 3.4 g/dL (3.5-5.2); Alkaline Phosphatase 71 U/L (35-105); Anion Gap 14.2 (5-19); Aspartate Amino Transferase 14 U/L (0-32); Blood Urea Nitrogen 10 mg/dL (6-20); Calcium 8.7 mg/dL (8.5-10.5); Carbon Dioxide 23 mmol/L (22-29); Chloride 104 mmol/L (98-107); Creatinine Clr Calc Pharmacy 158.6577; Globulin 2.9 g/dL (1.3-4.6); Glucose 115 mg/dL (65-115); Osmolality Calculated 284 mOsm/kg (285-295); Potassium 4.2 mmol/L (3.5-5.1); Sodium 137 mmol/L (136-145); Total Protein 6.3 g/dL (6.6-8.7)
[2025-08-13 18:10] LABS: Add Urine Microscopic? YES
[2025-08-13] MEDS: oxyCODONE-APAP 5-325 mg Tablet 1 TAB PO (18:24)
[2025-08-13 18:31] VITALS: BP 126/79; PULSE 79; O2SAT 96
== END 2025-08-13 18:32 | disposition home or self-care (01) ==
PROVIDERS: Emergency Provider Physician Assistant; PCP Family Medicine
DX: M54.6 Pain in thoracic spine (principal); J44.9 Chronic obstructive pulmonary disease, unspecified
CPT/HCPCS: 36415; 71045; 80053; 81001; 85025; 96372; 99284; J1100; J1885; J2360; J9999

== ENCOUNTER → 2025-10-03 14:39 | Outpatient (BNVA) | payer MEDICAID, SELFPAY ==
[2025-07-10 14:56] VITALS: BP 144/84; BMI 61.5
== END ==
PROVIDERS: PCP Family Medicine; Visit Provider Emergency Medicine
DX: R53.1 Weakness (principal)
CPT/HCPCS: 80053; 83550; 85025

== ENCOUNTER 2025-11-05 13:24 | Emergency (ER) | payer MEDICAID, SELFPAY ==
[2025-07-10 14:56] VITALS: BP 144/84; BMI 61.5
[2025-11-05 13:54] VITALS: BP 164/110; PULSE 115; RESP 24; TEMP 36.8; O2SAT 99; BMI 59.5
--- NOTE | 2025-11-05 14:00 | CTR_ITS ---
PROCEDURE INFORMATION: Exam: CT Abdomen And Pelvis With Contrast Exam date and time: 11/05/2025 2:30 PM Age: 50 years old Clinical indication: Abdominal pain; Additional info: Upper abd pain, vomiting, diarrhea TECHNIQUE: Imaging protocol: Computed tomography of the abdomen and pelvis with contrast. Radiation optimization: All CT scans at this facility use at least one of these dose optimization techniques: automated exposure control; mA and/or kV adjustment per patient size (includes targeted exams where dose is matched to clinical indication); or iterative reconstruction. Contrast material: [id number]; Contrast volume: 100 ml; Contrast route: INTRAVENOUS (IV); COMPARISON: 1. CT angio chest w abd pel w con 11/21/2018 9:58 PM 2. MR MRCP [id number] 11/22/2018 2:29 AM RADIATION DOSE METRICS: Total DLP (mGy-cm): 1218.3 FINDINGS: Lungs: Small 5 mm dense nodule within the posteromedial left lung base is unchanged. This is more compatible with a small granuloma. Lung bases otherwise appear unremarkable. Pleural spaces: No significant pleural effusion. No pneumothorax. Heart: No cardiomegaly or pericardial effusion. Diaphragm: No hiatal hernia. Liver: 1.6 cm hypodense nodule within the right lobe of the liver (image 21 of series 3). This is unchanged. This was felt to correspond to benign hemangioma on prior MRI. No new suspicious mass or lesion within the liver. Diffuse decreased density throughout the liver in keeping with hepatic steatosis. Liver surface is smooth. Gallbladder and biliary ducts: Post cholecystectomy. Normal caliber of the common bile duct. Pancreas: The pancreas is unremarkable. Spleen: Small calcification within the mid aspect of the spleen compatible with prior granulomatous disease. No suspicious mass or lesion within the spleen. Adrenal glands: The adrenal glands are unremarkable. Kidneys and ureters: Circumscribed 6 mm cortical hypodensity within the mid left kidney. This is most compatible with a small cyst but is too small to characterize further. Symmetric appearance of the right and left renal nephrograms. No suspicious renal mass. No large renal calculi. No hydronephrosis. Stomach and bowel: The stomach appears unremarkable. Scattered nondistended fluid-filled small bowel loops are present within the midabdomen and extending into the pelvis. There are scattered air-fluid levels. Partial fluid distension of the ascending colon and few air-fluid levels. There is fluid partially distending the distal transverse colon. There are a few associated air-fluid levels. Findings more compatible with enteritis and reported diarrhea. No evidence of a small bowel obstruction. No associated colonic bowel wall thickening to suggest changes of acute colitis. Appendix: Normal appendix. Intraperitoneal space: No significant peritoneal free fluid. No free peritoneal air. Vasculature: The aorta is unremarkable . Lymph nodes: There are no enlarged or suspicious intra-abdominal, pelvic or retroperitoneal lymph nodes. Urinary bladder: Oval 7 mm calculus is present at the left bladder base. Bladder otherwise appears unremarkable. Reproductive: There has been a hysterectomy. No adnexal cysts or masses are identified. Bones/joints: No acute osseous abnormality. No fracture or suspicious bone lesion. Soft tissues: Very small periumbilical hernia containing fat. Soft tissues are unremarkable as visualized. CT/CT abdomen pelvis w con* [id number] IMPRESSION: 1. Scattered nondistended fluid-filled small bowel loops are present within the midabdomen and extending into the pelvis. There are scattered air-fluid levels. Partial fluid distension of the ascending colon and few air-fluid levels. There is fluid partially distending the distal transverse colon. There are a few associated air-fluid levels. Findings more compatible with enteritis and reported diarrhea. No evidence of a small bowel obstruction. No associated colonic bowel wall thickening to suggest changes of acute colitis. 2. 7 mm bladder calculus. 3. Fatty liver 4. Other incidental and nonemergent findings are discussed above. COMMENTS: Consistent with the [employer]'s Incidental Findings Committee white paper (J Am Karl Radiol 2018): Any incidental renal lesion less than 1 cm or classified as too small to characterize, or any incidental cystic renal lesion characterized as simple-appearing, is likely benign. No follow-up imaging is recommended for these lesions per consensus recommendations based on imaging criteria.
--- NOTE | 2025-11-05 14:03 | W.ED.ABDPA2 ---
HPI - Abdominal Pain General: Chief Complaint: Abdominal Pain Stated Complaint: abd pain, n/v/d Time Seen by Provider: 11/05/25 13:34 Source: patient Mode of arrival: ambulatory Limitations: no limitations History of Present Illness: Patient is a 50-year-old female with past medical history of chronic pain, acid reflux, morbid obesity, anxiety and depression, and chronic diarrhea presenting to the emergency department for reports of nausea vomiting and diarrhea, associated with upper abdominal pain for the past 3 days. Reports that she has had similar symptoms in the past, but not as severe as this. Pain primarily is to the epigastric region but radiates across the top of the abdomen bilaterally. Is reporting some associated back pain. Only notes 1 episode of vomiting but states that she is having numerous episodes of sulfur burps. Takes Protonix twice a day but states that she has still been having symptoms. She notes about 15 episodes of diarrhea per day, she is not reporting any incontinence but states that it is close and that she can barely make it to the bathroom. She also notes that she always has diarrhea when she tries to urinate, and is not reporting any urinary symptoms that she can tell. No fevers or chills. No recent antibiotic use and no personal history of C. difficile colitis. No other reported gastrointestinal symptoms other than she states that she has been treated for H. pylori twice. Currently she is slightly tachycardic, likely secondary to the pain that she is reporting but overall rest of her vitals unremarkable. Morbidly obese female, nontoxic. She does not relate her pain to eating, stating that she has tried to eat more solid foods because she thinks that eating soft foods has been what is causing her to have profuse diarrhea. MD elicited complaint: abdominal pain Pertinent past history: gastritis Onset (ago): day(s) (3) Pain Consistency: constant Location: Epigastric Severity: similar to previous episodes Quality: cramping Radiation: LUQ and RUQ Associated Symptoms: Reports diarrhea, heartburn, nausea and vomiting; Denies bloating, chills, coffee ground emesis, constipation, dysuria, fever(s), hematochezia, hematemesis and fecal incontinence Related Data Previous Rx's ?Medication ?Instructions ?Recorded CPAP mask, tubing, and supplies #1 ea 12/28/24 Shower chair #1 ea 12/28/24 CPAP 6-16 cm mmHg setting with #1 ea 01/25/25 mask, tubing and supplies albuterol sulfate 1.25 mg/3 mL 1.25 mg (3 mL) inhalation QID PRN 03/22/25 solution for nebulization shortness of breath or wheezing #75 mL fluticasone propionate 50 2 spray intranasal BID #16 grams 03/22/25 mcg/actuation nasal spray,suspension (Flonase Allergy Relief) metoprolol succinate 50 mg 50 mg PO DAILY #90 tabs 06/03/25 tablet,extended release 24 hr leflunomide 20 mg tablet 20 mg PO DAILY #30 tabs 07/10/25 fluconazole 150 mg tablet 150 mg PO DAILY #2 tabs 07/11/25 furosemide 20 mg tablet (Lasix) 20 mg PO .COMPLEX #30 tabs 08/12/25 prednisone 10 mg tablets in a dose 10 mg PO DIRECTED #21 ea 08/13/25 pack pantoprazole 40 mg tablet,delayed 40 mg PO BID #60 tabs 09/06/25 release tirzepatide (weight loss) 5 mg/0.5 See Rx Instructions .Route 09/24/25 mL subcutaneous pen injector .COMPLEX #4 mL (Zepbound) hydroxyzine pamoate 50 mg capsule 50 mg PO BID PRN #60 caps 10/11/25 venlafaxine 150 mg 150 mg PO QAM #30 caps 10/11/25 capsule,extended release 24 hr (Effexor XR) venlafaxine 75 mg capsule,extended 75 mg PO QAM #30 caps 10/11/25 release 24 hr (Effexor XR) albuterol sulfate 90 mcg/actuation 2 puff inhalation Q4H PRN 10/21/25 aerosol inhaler (Ventolin HFA) shortness of breath or wheezing #8.5 grams budesonide-formoterol HFA 160 2 puff inhalation Q12H #10.2 grams 10/21/25 mcg-4.5 mcg/actuation aerosol inhaler (Symbicort) fexofenadine 180 mg tablet 180 mg PO DAILY #30 tabs 10/21/25 (Breanna Hives) tiotropium bromide 18 mcg capsule 1 cap inhalation DAILY 30 days #60 10/21/25 with inhalation device (Spiriva inhalations with HandiHaler) estradiol 2 mg tablet See Rx Instructions .Route 11/04/25 .COMPLEX #30 tabs ondansetron 4 mg disintegrating 4 mg PO TID PRN nausea and 11/05/25 tablet vomiting #30 tabs Allergies Allergy/AdvReac Type Severity Reaction Status Date / Time penicillin G Allergy Severe ALGY-Rash Verified 11/05/25 11:55 Beef Containing Products Allergy Intermediate ADR-Gastrointestinal Verified 11/05/25 11:55 Upset Review of Systems General: Reports: 10 or more systems reviewed and unremarkable except in HPI and below Const: Denies: fever(s), chills, change in appetite, change in weight or diaphoresis ENMT: Denies: throat pain or hoarseness Card: Denies: chest pain, palpitations or lightheadedness Resp: Denies: dyspnea, productive cough or wheezing GI: Reports: abdominal pain, nausea, vomiting, heartburn and diarrhea; Denies: hematemesis, coffee ground emesis, constipation, bloating, fecal incontinence or hematochezia : Denies: flank pain, difficulty voiding, dysuria, urinary frequency or urinary urgency Musc: Reports: back pain; Denies: neck pain Skin/Breast: Denies: rash or new lesions Neuro: Denies: headache(s) or dizziness PFSH ED PFSH: Medical History High risk medication use Tachycardia New onset of headaches Diarrhea Borderline personality disorder Psychiatric care Encounter for pre-bariatric surgery counseling and education Posterior right knee pain Plantar fasciitis, bilateral Postmenopausal Arthritis, midfoot Hot flashes due to menopause Nicotine dependence, cigarettes, uncomplicated Chronic post-traumatic stress disorder Generalized anxiety disorder Major depressive disorder, recurrent, moderate Obesity GERD (gastroesophageal reflux disease) Chronic pain Surgical History Hx of colonoscopy History of esophagogastroduodenoscopy (EGD) 2 yrs ago History of laparoscopic cholecystectomy (~2014) History of hysterectomy (~2018) History of dilation and curettage (~2012) History of tubal ligation (~2002) History of 3 sections 1993,1999,2002 History of foot surgery BILATERAL- PLANTAR FASCITIS RELEASE Family History Father Hypertension Heart disease Diabetes Mother Thyroid disease Diabetes Obesity Grandmother Obesity Other Helicobacter pylori gastritis Denies family history of Anesthesia complication Bleeding disorder Social History Smoking and tobacco/nicotine status: current every day tobacco/nicotine user cigarettes Packs smoked per day: 1 Years cigarettes smoked: 32 Quit status (tobacco/nicotine): considering quitting Second hand smoke exposure: Yes Alcohol intake: never Substance/Drug Use: never Adopted: No Caregiver/support person: No Lives independently: Yes Household members: significant other Housing: Manufactured/Mobile home Marital status: Single Number of children: 6 Number of grandchildren: 3 Highest education level completed: GED or Equivalent service: No Current occupational status: employed 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 Current occupational exposures/hazards: No Pets and animals: Yes Pets & animals: dog(s) Leisure activites: fishing and other Leisure activities details: watch TV Sexually active: Yes Do you think of yourself as: Lesbian/Harmon/Homosexual Current gender identity: Female Flakita/Yazidism: None Special flakita needs: No Agree to transfusion: Yes Female Reproductive History: Para: 3 Physical Exam Const: COMMON NORMALS: no acute distress, patient oriented x3, alert and well nourished GENERAL APPEARANCE: cooperative NUTRITIONAL APPEARANCE: obese morbidly obese ORIENTATION/CONSCIOUSNESS: Yes awake OTHER: Nontoxic-appearing HENMT: COMMON NORMALS: normocephalic, atraumatic and moist oral mucous membranes HEAD & SCALP: normocephalic and atraumatic Neck/C-Spine: COMMON NORMALS: full ROM and no meningeal signs Resp: COMMON NORMALS: normal respiratory effort, No retractions, No use of accessory muscles and clear to auscultation bilaterally AUSCULTATION: clear to auscultation bilaterally, no crackles, no rales, no rhonchi and no wheezes Cardio: COMMON NORMALS: regular rhythm, No gallops present (Cardio), No clicks present (Cardio), No murmurs present (Cardio) and No rub (Cardio) RATE: tachycardic RHYTHM: regular rhythm GI: AUSCULTATION: Yes normoactive bowel sounds RECTAL EXAM: deferred OTHER: Large obese abdomen. Reproducible tenderness palpation of the epigastric region. : COMMON NORMALS: Yes no CVA tenderness BLADDER/KIDNEY EXAM: Yes no CVA tenderness Back/Pelvis: COMMON NORMALS: no CVA tenderness Extremity: COMMON NORMALS: normal to inspection and full ROM Neuro: COMMON NORMALS: patient oriented x3, moves all extremities, no focal motor deficits and no sensory deficits noted SENSORIUM/ORIENTATION: Yes alert MENINGEAL SIGNS: Yes no meningeal signs Psych: COMMON NORMALS: mental status grossly normal, cooperative and speech normal SPEECH: Yes normal speech Skin: COMMON NORMALS: no rashes or lesions noted GENERAL SKIN EXAM: no rashes or lesions noted Course Vital Signs: Vital signs: Vital Signs Temperature 98.2 F 11/05/25 13:54 Pulse Rate 115 H 11/05/25 13:54 Respiratory Rate 24 H 11/05/25 13:54 Blood Pressure 164/110 11/05/25 13:54 Pulse Oximetry 99 11/05/25 13:54 Oxygen Delivery Me thod Room Air 11/05/25 13:54 MDM - Abdominal Pain Medical Decision Making Patient presented for 3 days of diarrhea, upper abdominal pain, and nausea. History of similar but states this feels much worse. Has been seen here multiple times in the ED for similar. Morbid obese female on exam nontoxic and afebrile. Is slightly tachycardic likely secondary to her pain. IV established she is given fluids and pain medicine, C. difficile PCR sample was ordered however unable to give the sample here, though this is supporting that likely not C. difficile she is not having any recent antibiotic use and she did not report that it was foul-smelling. CT does show evidence of gastroenteritis, it is of likely viral origin and the rest of her lab work is normal which includes no metabolic derangement, no leukocytosis, normal lipase, and no urinary tract infection. The C. difficile order is still in place patient told to bring stool sample back whenever she can give it, but again I have low suspicion this is C. difficile. Told to advance clear liquid diet, take Motrin and Tylenol, and do bowel rest. Informed her to avoid any antidiarrheal medications, and return with any severe signs of dehydration, worsening abdominal pain, worsening diarrhea, fevers, or other concerns. Lab Data 11/05/25 14:02 11/05/25 14:02 Labs/Radiology: Radiology Impressions Abdomen/Pelvis CT 11/05/25 14:00 IMPRESSION: 1. Scattered nondistended fluid-filled small bowel loops are present within the midabdomen and extending into the pelvis. There are scattered air-fluid levels. Partial fluid distension of the ascending colon and few air-fluid levels. There is fluid partially distending the distal transverse colon. There are a few associated air-fluid levels. Findings more compatible with enteritis and reported diarrhea. No evidence of a small bowel obstruction. No associated colonic bowel wall thickening to suggest changes of acute colitis. 2. 7 mm bladder calculus. 3. Fatty liver 4. Other incidental and nonemergent findings are discussed above. COMMENTS: Consistent with the [employer]'s Incidental Findings Committee white paper (J Am Karl Radiol 2018): Any incidental renal lesion less than 1 cm or classified as too small to characterize, or any incidental cystic renal lesion characterized as simple-appearing, is likely benign. No follow-up imaging is recommended for these lesions per consensus recommendations based on imaging criteria. Laboratory Results WBC 10.90 10^3/uL (3.29-11.43) 11/05/25 14:02 RBC 4.90 10^6/uL (3.85-5.65) 11/05/25 14:02 Hgb 13.70 g/dL (11.27-16.99) 11/05/25 14:02 Hct 41.2 % (36-47) 11/05/25 14:02 MCV 84.1 fl (85-98) L 11/05/25 14:02 MCH 28.0 pg (27-33) 11/05/25 14:02 MCHC 33.3 g/dL (30-55) 11/05/25 14:02 RDW 14.0 % (12.1-15.1) 11/05/25 14:02 Plt Count 404 10^3/cmm (157-399) H 11/05/25 14:02 MPV 9.1 fL (7.4-10.4) 11/05/25 14:02 Neut % (Auto) 58.5 % 11/05/25 14:02 Lymph % (Auto) 33.4 % 11/05/25 14:02 Dent % (Auto) 6.6 % 11/05/25 14:02 Eos % (Auto) 0.9 % 11/05/25 14:02 Baso % (Auto) 0.4 % 11/05/25 14:02 Neut # (Auto) 6.38 10^3/uL (1.8-7.7) 11/05/25 14:02 Lymph # (Auto) 3.6 10^3/uL (0.8-4.8) 11/05/25 14:02 Dent # (Auto) 0.7 10^3/uL (0.2-0.9) 11/05/25 14:02 Eos # (Auto) 0.1 10^3/uL (0.0-0.8) 11/05/25 14:02 Baso # (Auto) 0.0 10^3/uL (0.0-0.1) 11/05/25 14:02 Nucleated RBC % (auto) 0 % 11/05/25 14:02 Nucleated RBCs # 0.0 /100WBC 11/05/25 14:02 Sodium 137 mmol/L (136-145) 11/05/25 14:02 Potassium 3.4 mmol/L (3.5-5.1) L 11/05/25 14:02 Chloride 100 mmol/L (98-107) 11/05/25 14:02 Carbon Dioxide 24 mmol/L (22-29) 11/05/25 14:02 Anion Gap 16.4 (5-19) 11/05/25 14:02 BUN 7 mg/dL (6-20) 11/05/25 14:02 Creatinine 0.7 mg/dL (0.5-0.9) 11/05/25 14:02 GFR Calculation 89.3 mL/min (90-130) L 11/05/25 14:02 Glucose 108 mg/dL (65-115) 11/05/25 14:02 Calculated Osmolality 283 mOsm/kg (285-295) L 11/05/25 14:02 Calcium 8.4 mg/dL (8.5-10.5) L 11/05/25 14:02 Total Bilirubin 0.3 mg/dL (0.15-1.2) 11/05/25 14:02 AST 17 U/L (0-32) 11/05/25 14:02 ALT 19 U/L (0-33) 11/05/25 14:02 Alkaline Phosphatase 86 U/L (35-105) 11/05/25 14:02 Total Protein 6.7 g/dL (6.6-8.7) 11/05/25 14:02 Albumin 3.9 g/dL (3.5-5.2) 11/05/25 14:02 Globulin 2.8 g/dL (1.3-4.6) 11/05/25 14:02 Lipase 25 U/L (13-60) 11/05/25 14:02 Urine Color Yellow (Yellow) 11/05/25 15:28 Urine Appearance Clear (CLEAR) 11/05/25 15:28 Urine pH 6.0 (5-7) 11/05/25 15:28 Ur Specific [place] 1.077 (1.005-1.030) H 11/05/25 15:28 Urine Protein Negative (Negative) 11/05/25 15:28 Urine Glucose (UA) Negative (Normal) 11/05/25 15: Urine Ketones Negative (Negative) 11/05/25 15: Urine Blood Negative (Negative) 11/05/25 15: Urine Nitrate Negative (Negative) 11/05/25 15: Urine Bilirubin Negative (Negative) 11/05/25 15:28 Urine Urobilinogen 0.2 mg/dL (Negative) 11/05/25 15:28 Ur Leukocyte Esterase Negative (Negative) 11/05/25 15:28 Urine RBC 0-2 /hpf (0-2) 11/05/25 15:28 Urine WBC 0-5 /hpf (0-5) 11/05/25 15:28 Ur Squamous Epith Cells 0-5 /hpf (0-5) 11/05/25 15:28 Amorphous Sediment Not Reportable 11/05/25 15:28 Urine Bacteria None seen /hpf (NONE) 11/05/25 15:28 Hyaline Casts 0.81 /lpf 11/05/25 15:28 All radiology interpretation(s) finalized by discharge Discharge Plan Discharge Patient Disposition: Home Clinical Impression: Acute gastroenteritis Condition: Stable Prescriptions: New ondansetron 4 mg tablet,disintegrating 4 mg PO TID PRN (Reason: nausea and vomiting) Qty: 30 0RF No Action (DME) Shower chair 300 pound capacity See Rx Instructions .Route .MEDSUPPLY Qty: 1 0RF Rx Instructions: As directed (DME) CPAP mask, tubing, and supplies See Rx Instructions .Route .MEDSUPPLY Qty: 1 0RF Rx Instructions: As directed leflunomide 20 mg tablet 20 mg PO DAILY Qty: 30 3RF albuterol sulfate [Ventolin HFA] 90 mcg/actuation HFA aerosol inhaler 2 puff inhalation Q4H PRN (Reason: shortness of breath or wheezing) Qty: 8.5 5RF budesonide-formoterol [Symbicort] 160-4.5 mcg/actuation HFA aerosol inhaler 2 puff inhalation Q12H Qty: 10.2 5RF tiotropium bromide [Spiriva with HandiHaler] 18 mcg capsule, w/inhalation device 1 cap inhalation DAILY 30 Days Qty: 60 5RF Rx Instructions: puncture 1 cap using device; one dose = 2 inhalations fexofenadine [Breanna Hives] 180 mg tablet 180 mg PO DAILY Qty: 30 5RF venlafaxine [Effexor XR] 75 mg capsule,extended release 24hr 75 mg PO QAM Qty: 30 6RF venlafaxine [Effexor XR] 150 mg capsule,extended release 24hr 150 mg PO QAM Qty: 30 6RF hydroxyzine pamoate 50 mg capsule 50 mg PO BID PRN (Reason: ) Qty: 60 3RF Rx Instructions: Take one capsule twice per day as needed for anxiety fluticasone propionate [Flonase Allergy Relief] 50 mcg/actuation spray,suspension 2 spray intranasal BID Qty: 16 1RF Rx Instructions: administer into each nostril (DME) CPAP 6-16 cm mmHg setting with mask, tubing and supplies See Rx Instructions .ROUTE .MEDSUPPLY Qty: 1 0RF Rx Instructions: As directed albuterol sulfate 1.25 mg/3 mL solution for nebulization 1.25 mg inhalation QID PRN (Reason: shortness of breath or wheezing) Qty: 75 0RF metoprolol succinate 50 mg tablet extended release 24 hr 50 mg PO DAILY Qty: 90 1RF fluconazole 150 mg tablet 150 mg PO DAILY Qty: 2 0RF Rx Instructions: 1 tab today, wait 3 days to take 2nd tab. furosemide [Lasix] 20 mg tablet 20 mg PO .COMPLEX Qty: 30 0RF Rx Instructions: Take in the AM as needed for leg swelling pantoprazole 40 mg tablet,delayed release (DR/EC) 40 mg PO BID Qty: 60 2RF Zepbound 5 mg/0.5 mL pen injector See Rx Instructions .ROUTE .COMPLEX Qty: 4 0RF Dose Instruction: INJECT 5MG SUBCUTANEOUSLY ONCE WEEKLY Rx Instructions: INJECT 5MG SUBCUTANEOUSLY ONCE WEEKLY estradiol 2 mg tablet See Rx Instructions .ROUTE .COMPLEX Qty: 30 0RF Dose Instruction: Take 1 tablet by mouth once daily Rx Instructions: Take 1 tablet by mouth once daily prednisone 10 mg tablets,dose pack 10 mg PO DIRECTED Qty: 21 0RF Rx Instructions: see taper instructions 6 tablets on day 1, 5 tablets on day 2, 4 tablets on day 3, 3 tablets on day 4, 2 tablets on day 5, and 1 tablet a day 6. P.o. Discharge Orders: Discharge ED (Routine); Ordered 11/05/25 Ordered By: Quintin Pérez Referrals: Tatyana Bhatia DO [Primary Care Provider, Family Practice] Patient Instructions: Patient Portal & Prudencio Instructions Activity Restrictions/Additional Instructions: Discharge Instructions Your Diagnosis You have been diagnosed with viral gastroenteritis, which is an infection of the stomach and intestines caused by a virus. This condition typically causes nausea, vomiting, and sometimes diarrhea. Most people recover completely within a few days with proper care at home. What to Do at Home Staying Hydrated The most important part of your recovery is drinking enough fluids to replace what you've lost from vomiting. - Drink small amounts of clear fluids frequently throughout the day - Good options include water, clear broth, oral rehydration solutions (like Pedialyte), or diluted juice - Avoid alcohol, caffeine, and very sugary drinks as these can make symptoms worse - If you can tolerate it, return to your normal diet within 4-6 hours, as this may help shorten your illness Managing Nausea and Vomiting You have been prescribed an antiemetic medication to help control nausea and vomiting. Take this medication as directed on the prescription label. This medicine will help you keep fluids down and prevent dehydration. Rest and Recovery - Get plenty of rest to help your body fight the infection - Wash your hands frequently with soap and water, especially after using the bathroom and before eating - Avoid preparing food for others until at least 48 hours after your symptoms have stopped When to Seek Medical Attention Return to the emergency department or call your doctor if you experience: - Signs of dehydration: extreme thirst, dry mouth, little or no urination, dizziness when standing, or dark-colored urine - Vomiting that prevents you from keeping down any fluids for more than 24 hours - Blood in your vomit or stool - Severe abdominal pain - Fever higher than 101.3?F (38.5?C) - Symptoms that worsen or do not improve after 3-4 days - Confusion or severe weakness What to Expect Most people with viral gastroenteritis feel better within 2-3 days. Your symptoms should gradually improve as your body fights off the infection. Continue to drink plenty of fluids even after you start feeling better. Follow-Up Care No specific follow-up appointment is needed unless your symptoms worsen or do not improve. If you have questions or concerns, contact your primary care doctor. 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
[2025-11-05 14:10] LABS: Hematocrit 41.2 % (36-47); Hemoglobin 13.70 g/dL (11.27-16.99); Mean Corpuscular HGB Conc 33.3 g/dL (30-55); Mean Corpuscular Hemoglobin 28.0 pg (27-33); Mean Corpuscular Volume 84.1 fl (85-98); Nucleated Red Blood Cells % 0 %; Platelet Count 404 10^3/cmm (157-399); Red Blood Count 4.90 10^6/uL (3.85-5.65); White Blood Count 10.90 10^3/uL (3.29-11.43)
[2025-11-05 14:24] LABS: Alanine Aminotransferase 19 U/L (0-33); Albumin Level 3.9 g/dL (3.5-5.2); Alkaline Phosphatase 86 U/L (35-105); Anion Gap 16.4 (5-19); Aspartate Amino Transferase 17 U/L (0-32); Blood Urea Nitrogen 7 mg/dL (6-20); Calcium 8.4 mg/dL (8.5-10.5); Carbon Dioxide 24 mmol/L (22-29); Chloride 100 mmol/L (98-107); Globulin 2.8 g/dL (1.3-4.6); Glucose 108 mg/dL (65-115); Lipase 25 U/L (13-60); Osmolality Calculated 283 mOsm/kg (285-295); Potassium 3.4 mmol/L (3.5-5.1); Sodium 137 mmol/L (136-145); Total Protein 6.7 g/dL (6.6-8.7)
[2025-11-05] MEDS: iohexol 350 mg/mL 500 mL Btl (per mL) IV (14:33)
--- OUTSIDE RECORDS SUMMARY | 2025-11-05 14:38 | XMS_ITS | Clinical Summary ---
Author Organization [facility] Address [address] [place]ipp[place]: Epic Prelude ADT [place] [address] Care Team Providers Care Mortising Machine Operator Name Role Phone BryantimmyTatyana Harpreet FERRELL Primary Care Provider [phone] Allergies Active Allergy Reactions Criticality Noted Date [...] Encounters Date Type Department Care Team Description 09/24/2025 External Device Data [facility] ABSTRACTION Provider, Abstract 09/18/2025 External Device Data [facility]STRA[facility] Provider, Abstract 09/18/2025 External Device Data [facility] Provider, Abstract 09/11/2025 External Device Data [facility] Provider, Abstract 09/10/2025 External Device Data [facility] Provider, Abstract 08/06/2025 External Device Data [facility]STRA[facility] Provider, Abstract from Last 3 Months Social History Tobacco Use Types Packs/Day Years Used Date Smoking Tobacco: Every Day Cigarettes Smokeless Tobacco: Never Alcohol Use Standard Drinks/Week Comments Never 0 (1 standard drink = 0.6 oz pur e alcohol) Comments Unknown Sex and Gender Information Value Date Recorded Sex Assigned at Not on file Legal Sex Female 5:13 AM 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 Gender Identity Not on file Sexual Orientation Not on file Last Filed Vital Signs Vital Sign Reading Time Taken Comments Blood Pressure 151/77 12/05/2020 6:16 PM 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 Pulse 93 10/09/2018 1:59 PM 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 Temperature 36.2 C (97.2 F) 12/05/2020 6:16 PM 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 Respiratory Rate 24 12/05/2020 6:16 PM 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 Oxygen Saturation - - Inhaled Oxygen Concentration - - Weight 134.6 kg (296 lb 12.8 oz) 12/05/2020 6:16 PM 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 Height 154.9 cm (5' 1 ) 12/05/2020 6:16 PM 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 Body Mass Index 56.08 12/05/2020 6:16 PM 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 Plan of Treatment Health Maintenance Due [...] years 2022 INFLUENZA VACCINE (#1) 2025 Insurance [facility] [employer] Care Teams Mortising Machine Operator Relationship Specialty Start Date End Date Tatyana Bhatia DO PCP - General Family Practice 12/05/20
--- OUTSIDE RECORDS SUMMARY | 2025-11-05 14:41 | XMS_ITS | Clinical Summary ---
Author Organization [facility] Address [address] [place] [address] Phone Care Team Providers Care Medical Staff Manager Name Role Phone Tatyana Bhatia Harpreet FERRELL Primary Care Provider [phone]- [phone] Allergies Active Allergy Reactions Criticality Noted Date [...] Comments Blood Pressure 151/77 12/05/2020 6:16 PM RETAIL SPECIAL EVENT ASSOCIATE Pulse 93 10/09/2018 1:59 PM RETAIL SPECIAL EVENT ASSOCIATE Temperature 36.2 C (97.2 F) 12/05/2020 6:16 PM RETAIL SPECIAL EVENT ASSOCIATE Respiratory Rate 24 12/05/2020 6:16 PM RETAIL SPECIAL EVENT ASSOCIATE Oxygen Saturation 97% 12/05/2020 6:16 PM RETAIL SPECIAL EVENT ASSOCIATE Inhaled Oxygen Concentration - - Weight 134.6 kg (296 lb 12.8 oz) 12/05/2020 6:16 PM RETAIL SPECIAL EVENT ASSOCIATE Height 154.9 cm (5' 1 ) 12/05/2020 6:16 PM RETAIL SPECIAL EVENT ASSOCIATE Body Mass Index 56.08 12/05/2020 6:16 PM RETAIL SPECIAL EVENT ASSOCIATE Plan of Treatment Health Maintenance Due Date [...] (#1) 2025 Insurance [employer] Care Teams Medical Staff Manager Relationship Specialty Start Date End Date Tatyana Bhatia DO PCP - General Family Practice 12/05/20
[2025-11-05 15:36] LABS: Glucose Urine UA Negative (Normal); Nitrate Urine Negative (Negative)
[2025-11-05 15:41] LABS: Add Urine Microscopic? YES
[2025-11-05 15:44] LABS: Specific Gravity, Urine 1.077 (1.005-1.030)
== END 2025-11-05 16:09 | disposition home or self-care (01) ==
PROVIDERS: Emergency Medicine; Emergency Provider Physician Assistant; PCP Family Medicine
DX: K52.89 Other specified noninfective gastroenteritis and colitis (principal); F17.210 Nicotine dependence, cigarettes, uncomplicated
CPT/HCPCS: 36415; 74177; 80053; 81001; 83690; 85025; 99285; J7030

== ENCOUNTER 2025-11-08 14:38 | Outpatient (CLI) | payer MEDICAID, SELFPAY ==
[2025-07-10 14:56] VITALS: BP 144/84; BMI 61.5
--- NOTE | 2025-11-08 14:20 | MM_ITS ---
WS: [id number] BILATERAL 3D TOMOSYNTHESIS DIGITAL SCREENING MAMMOGRAM WITH CAD CLINICAL INFORMATION: Z12.39 - Encounter for other screening for malignant neop... HISTORY: Screening mammogram. No current complaints. COMPARISON: 2023 TECHNIQUE: Bilateral CC and MLO views. FINDINGS: Fatty-replaced breasts bilaterally. No suspicious focal mass, asymmetry, calcifications, or architectural distortion. No evidence of malignancy. MM/MM scr BI tomosynthesis [id number] IMPRESSION: DENSITY: The breasts are almost entirely fatty. BI-RADS: 1 - Negative. FOLLOW UP: 1 Year Follow-up Recommend return to annual screening mammography.
== END 2025-11-08 14:39 | disposition home or self-care (01) ==
LOC: RAD 14:39
PROVIDERS: PCP Family Medicine; Visit Provider Nurse Practitioner Women's Health
DX: Z12.31 Encounter for screening mammogram for malignant neoplasm of breast (principal); R92.313 Mammographic fatty tissue density, bilateral breasts
CPT/HCPCS: 77063; 77067